=== PATIENT | male | born 1945 | race Caucasian/White ===

== ENCOUNTER 2017-04-08 14:00 | Observation (INO) | payer MEDICARE, SELFPAY ==
[2017-04-08] VITALS (7 sets, daily range): BP systolic 109–166; BP diastolic 50–82; PULSE 59–73; RESP 13–18; TEMP 36.2–36.4; O2SAT 94–98; BMI 27.0; BMI 26.4
--- NOTE | 2017-04-08 14:16 | ED.RN ---
PT'S BLOOD SUGAR WAS 46 ON ED MONITOR, PT WAS SOMNOLENT GIVEN 1/2 AMP OF D50
[2017-04-08] MEDS: Dextrose 50%-Water 25 GM/50 ML DISP.SYRIN IV (14:20)
[2017-04-08 14:21] LABS: Bedside Glucose 46 mg/dL (70-110)
[2017-04-08 16:05] LABS: Bedside Glucose 73 mg/dL (70-110)
[2017-04-08 16:24] LABS: Anion Gap 8 (5-15); BUN 15 mg/dL (7-18); BUN/Creat Ratio 12.7 RATIO (10-20); Calcium,Total 8.6 mg/dL (8.5-10.1); Chloride 106 mmol/L (98-107); Creatinine, Serum 1.18 mg/dL (0.70-1.30); EST Glomerular Filtration Rate 65 mL/min (>60); Est Glom Filt Rate - Afr Amer 78 mL/min (>60); Estimated Creatinine Clearance 56.36 ml/min; Glucose 78 mg/dL (70-110); Potassium 3.4 mmol/L (3.5-5.1); Sodium Level 142 mmol/L (136-145)
[2017-04-08 17:07] LABS: Absolute Lymphocyte Count 1.51 X10^3/ul (0.83-4.51); Absolute Neutrophil Count 7.8 X10^3/uL (2.0-7.7); Basophil# 0.03 X10^3/uL; Basophil% 0.3 % (0-1); Eosinophil# 0.25 X10^3/uL; Eosinophils% 2.4 % (0-5); Hematocrit 34.5 % (40-54); Hemoglobin 11.5 g/dl (13.0-16.5); Lymphocyte # 1.51 X10^3/ul (4.0); Lymphocyte % 14.6 % (19-41); Mean Corp Hgb Conc 33.3 g/gl (32-36); Mean Corpuscular Hgb 31.4 pg (27.0-32.0); Mean Corpuscular Volume 94.3 fL (80-94); Mean Platelet Vol. 10.8 fl (6.2-12.0); Monocyte# 0.75 X10^3/uL; Monocyte% 7.2 % (0-10); Neutrophil % 75.4 % (47-70); Platelet Count 237 K/mm3 (150-450); RBC Distribution Width SD 40.1 fl (35.1-43.9); Red Blood Count 3.66 M/mm3 (4.6-6.2); White Blood Count 10.4 K/mm3 (4.4-11.0)
[2017-04-08 17:12] LABS: POSITIVE COUNT NO; POSITIVE DIFFERENTIAL NO; POSITIVE MORPHOLOGY NO
[2017-04-08 17:16] LABS: Bedside Glucose 74 mg/dL (70-110)
--- NOTE | 2017-04-08 17:28 | ED.VISSUMM ---
- ER Visit Summary Date of Service: 04/08/17 Chief Complaint: [Hypoglycemia] History of Present Illness: The patient is a 71 M [presents to the emergency department with an episode of hypoglycemia today. Patient was with his when he began acting strangely per . Patient started nodding off and not responding appropriately. The checked his blood sugar and noticed that it was 36. The called EMS and gave the patient some orange juice to drink. On EMS arrival patient was hypoglycemic and was given half an amp of D50. On arrival to the emergency department patient continues to be hypoglycemic and received another amp of D50 and was given a meal tray. Patient normally takes 30 units of NovoLog in the morning as well as 30 units after dinner. Patient also takes 50 units of Lantus at night. The states that his blood sugars had been running high so about a week ago he was started back on his metformin. Normally his blood sugars are in the 200s and they had been running as high as the 4 and 500s prior to starting the metformin again. Patient is never had episode of hypoglycemia like this. Patient also currently being treated for urinary tract infection and had an indwelling Kaplan catheter removed yesterday. Patient has been able to urinate without difficulty on his own since having the catheter removed.] Physical Examination: [HEENT-PERRLA, EOMI. Cranial nerves II through XII grossly intact. TMs clear. Mucous membranes moist. No adenopathy. Cardiovascular-regular rate and rhythm without murmur or ectopy Lungs-clear to auscultation, chest wall stable without crepitus or subcu emphysema Abdomen-normoactive bowel sounds, soft, nontender, no rebound or rigidity, no peritoneal signs. Extremities-intact ?4, normal range of motion, normal pulses, atraumatic] Test Results: [CBC with differential for white blood cell count of 10.4, hemoglobin 11.5, hematocrit 34.5, platelets 337. Chemistries unremarkable. Glucose was 78, BUN 15, creatinine 1.18. Urinalysis ordered and pending] Emergency Department Course and Treatment: Patient received a liter of normal saline. Patient was given 40 mEq potassium chloride p.o. After 3 hours in the emergency department patient relatively hypoglycemic for him with blood glucose levels in the low 70s. At this point will recommend admission for observation to stabilize his blood sugars. [] Treatment Plan: [Admit] Disposition: [Admit] Impression: [Persistent hypoglycemia] This note was generated with [employer] dictation software. It may contain incorrect words, spelling, and punctuation that were not noted in review of the chart prior to signing ED Disposition - Plan for ED Patient: Chief Complaint: Hypoglycemia Referrals: Priyank Ferreira DO [Primary Care Provider] -
--- NOTE | 2017-04-08 17:34 | ED.RN ---
PER DR STODDARD REQUEST PT GIVEN ANOTHER SANDWICH TO EAT.
--- NOTE | 2017-04-08 19:21 | HP.PCM_ITS ---
Problem List (1) Acute hypoglycemia Status: Acute (2) Benign hypertension Status: Chronic (3) Benign prostate hyperplasia Status: Chronic (4) Hypothyroidism Status: Chronic (5) Type 2 diabetes mellitus Status: Chronic (6) CAD (coronary artery disease) Status: Chronic (7) Hypertension Status: Chronic (8) GERD (gastroesophageal reflux disease) Status: Chronic (9) Urinary retention Status: Chronic (10) Acute kidney injury Status: Acute (11) Constipation Status: Chronic (12) Diabetes mellitus Status: Chronic (13) Hemorrhagic stroke Status: Chronic Comment: Hemorrhagic stroke in February 2016. (14) Carotid stenosis status post right CEA Status: Chronic (15) Acute metabolic encephalopathy due to hypoglycemia Status: Acute History of Present Illness Date of Admission: 04/08/17 Chief Complaint: Low blood sugar The patient is a 71 year old M with multiple comorbidities as listed above with recent history of hemorrhagic stroke in February 2016 for which he was transferred to [facility] from our ER, right CEA in 2014 came to ER with low blood sugar. Patient took 30 units NovoLog insulin and thought it did not go inside so he took on the 20 units. Prior to that patient was more confused and acting strange and was not responding appropriately. Patient checked blood sugar and was 36 mg percent. Later on EMS brought him here. He was given half amp of D50 in the ambulance and patient was still hypoglycemic in 40s and so received another in ER and blood sugar was in 70s. His last 2 blood sugars are 73 and 74. Currently on D5 half NS at 100 mL per/hr. the patient's symptoms of confusion and encephalopathy resolved [] Past Medical History Past Medical History (Chronic Problems): Chronic Problems Benign hypertension (Chronic) Benign prostate hyperplasia (Chronic) Hypothyroidism (Chronic) Type 2 diabetes mellitus (Chronic) CAD (coronary artery disease) (Chronic) Hypertension (Chronic) GERD (gastroesophageal reflux disease) (Chronic) Urinary retention (Chronic) Constipation (Chronic) Diabetes mellitus (Chronic) Hemorrhagic stroke (Chronic) Hemorrhagic stroke in February 2016. Carotid stenosis status post right CEA (Chronic) Allergies No Known Allergies Allergy (Verified 04/08/17 14:01) NKA Home Medications: Ambulatory Orders Medication Instructions Recorded Acetaminophen [Tylenol Extra 1,000 mg PO Q8H PRN PRN MDD 3000 03/24/17 Strength] MG IN 24 HOURS Carvedilol [Coreg] 12.5 mg PO BIDCM 03/24/17 Doxazosin Mesylate [Cardura] 2 mg PO DAILY 03/24/17 Levetiracetam Solution [Keppra 500 mg PO BID 03/24/17 Solution] Levothyroxine [Synthroid] 137 mcg PO DAILY 03/24/17 Mirtazapine [Remeron] 30 mg PO QHS 03/24/17 Paroxetine HCl [Paxil] 20 mg PO QHS 03/24/17 DiphenhydrAMINE [Benadryl] 25 mg PO QHS 04/08/17 Hydrochlorothiazide 12.5 mg PO DAILY 04/08/17 Insulin Aspart [Novolog Flexpen 30 units SC BIDCM 04/08/17 ([facility])] Insulin Glargine,Hum.rec.anlog 50 unit SQ QHS 04/08/17 [Lantus] Metformin HCl [Glucophage] 500 mg PO BIDCM 04/08/17 Polyethylene Glycol 3350 [Miralax] 17 gm PO DAILY 04/08/17 Surgical History: angioplasty, coronary bypass surgery - x 2., - - Bilateral carpal tunnel surgery, right and left rotator cuff repair, Right carotid endarterectomy. Psychiatric History: No pertinent psych hx Smoking Status: Former smoker - *Family History Maternal History Items: No pertinent history Paternal History Items: No pertinent history Review of Systems Constitutional: Denies: Chills, Fever, Weight Change HEENT: Denies: Head Aches, Sinus Congestion, Sinus Drainage Cardiovascular: Denies: Chest Pain, Palpitations Respiratory: Denies: Cough, Shortness of breath at rest, Sputum production Gastrointestinal: Denies: Abdominal Pain, Nausea, Vomiting Genitourinary: Denies: Dysuria Musculoskeletal: Denies: Joint Pain, Joint Tenderness Skin: Denies: Rash, Wounds Neurological: Reports: Confusion, Focal weakness - Left upper extremity weakness from recent stroke. Denies: Numbness, Tingling Psychiatric: Denies: Anxiety, Depression, Homicidal Ideations, Suicidal Ideations Hematologic/ Lymphatic: Denies: Easy Bruising, Easy Bleeding VTE Information - Inpt Only VTE Present on Admission: No VTE Mechan Device Prophylaxis: SCD's VTE Pharm Prophylaxis ordered?: Yes Patient Problems: Active and Suspected Problems Acute hypoglycemia (Acute) Acute metabolic encephalopathy due to hypoglycemia (Acute) - Physical Exam General: Alert, Oriented x3, Cooperative HEENT: Atraumatic, PERRLA, EOMI, Normocephalic Oral: Dry Mucosa Neck: Supple, No JVD, Negative Carotid Bruits, - - Right CEA in 2016 Lungs: No rhonchi, No wheeze, No rales, Diminished - Diminished in bilateral lung bases, posteriorly Cardiovascular: Regular rate, No murmurs, - - CABG scar in 1998 Abdomen: Bowel Sounds Present, Soft, Non Tender, Non-Distended Extremities: Capillary Refill Less than 3 Seconds, Edema Skin: No rashes, No breakdown Musculoskeletal: No Tenderness to Palpation of Joints or Extremities, Arthritic Changes Neurological: Cranial nerves II-XII grossly intact, Neuro grossly intact, - - Mild weakness 4/5 on the left hand and upper extremity Psych/Mental Status: Normal Affect, Appropriate Vital Signs Temp Pulse Resp BP Pulse Ox 97.4 F L 73 16 133/61 H 94 04/08/17 14:02 04/08/17 18:28 04/08/17 18:28 04/08/17 18:28 04/08/17 18:28 Assessment/Plan Active and Suspected Problems Acute hypoglycemia (Acute) Acute metabolic encephalopathy due to hypoglycemia (Acute) The patient is a 71 year old M with multiple comorbidities as listed above with recent history of hemorrhagic stroke in February 2016 for which he was transferred to [facility] from our ER, right CEA in 2014 came to ER with low blood sugar. Patient took 30 units NovoLog insulin and thought it did not go inside so he took on the 20 units. Prior to that patient was more confused and acting strange and was not responding appropriately. Patient checked blood sugar and was 36 mg percent. Later on EMS brought him here. He was given half amp of D50 in the ambulance and patient was still hypoglycemic in 40s and so received another in ER and blood sugar was in 70s. His last 2 blood sugars are 73 and 74. Currently on D5 half NS at 100 mL per/hr. the patient's symptoms of confusion and encephalopathy resolved. 1. Acute metabolic encephalopathy due to hypoglycemia: Patient is admitted on the regular MedSurg floor. Currently encephalopathy is resolved and patient is alert awake oriented ?3 on his baseline. 2 acute hypoglycemia secondary to overdose of insulin: Check blood sugar every 2 hours until blood sugar is more than 1 30 mg/dL for 3 consecutive times and then every 4 hours. No sliding insulin coverage. A1c tomorrow morning. 3. Diabetes mellitus type 2: Hold the home dose of insulin forming. He is on NovoLog insulin 30 units subcu twice daily, Lantus 15 units subcu at bedtime daily and on metformin. 4. Recent UTI on Macrobid: Patient started on Wednesday he had urine retention and was Kaplan catheterized. Kaplan catheter was removed yesterday and he had a spontaneous urination. UA and urine culture ordered. Currently no features of sepsis. Treat with antibiotic as per the UA. Patient further said he never had urine retention due to BPH although I see he is on Cardura at home. 5. Coronary artery disease status post CABG in 1998: Stable. Continue home medication 6. Recent hemorrhagic stroke in 02/2016 status post right CEA in 2016: Patient was admitted and [facility] for 1 week and then transferred to rehab. He was recently discharged from TCU after about 1 month. Other multiple comorbidities include hypertension, dyslipidemia, hypothyroidism , GERD, urinary retention, carotid stenosis post right CEA: Multiple comorbidities complicates the present care. Home medication reconciliation done. Laboratory Results 04/08/17 14:12: POC Glucose 46 L 04/08/17 15:51: WBC Cancelled, Corrected WBC Cancelled, RBC Cancelled, Hgb Cancelled, Hct Cancelled, MCV Cancelled, MCH Cancelled, MCHC Cancelled, RDW Cancelled, RDW Differential Cancelled, Plt Count Cancelled, MPV Cancelled, Immature Gran % (Auto) Cancelled, Neut % (Auto) Cancelled, Lymph % (Auto) Cancelled, Whitman % (Auto) Cancelled, Eos % (Auto) Cancelled, Baso % (Auto) Cancelled, Immature Gran # (Auto) Cancelled, Absolute Neuts (auto) Cancelled, Absolute Lymphs (auto) Cancelled, Absolute Monos (auto) Cancelled, Total Counted Cancelled, Neutrophils % (Manual) Cancelled, Band Neutrophils % Cancelled, Lymphocytes % (Manual) Cancelled, Monocytes % (Manual) Cancelled, Eosinophils % (Manual) Cancelled, Basophils % (Manual) Cancelled, Metamyelocytes % Cancelled, Myelocytes % Cancelled, Promyelocytes % Cancelled, Blast Cells % Cancelled, Plasma Cell % (Manual) Cancelled, Other Cells % Cancelled, Lymphocytes # Cancelled, Nucleated RBCs/100 WBC Cancelled, Differential Comment Cancelled, Diff Path Review Cancelled, Hypersegmented Neuts Cancelled, Atypical Lymphocytes Cancelled, Reactive Lymphocytes Cancelled , Smudge Cells Cancelled, Eosinophilia # Cancelled, Basophilia # Cancelled, Toxic Granulation Cancelled, Dohle Bodies Cancelled, Nicho Rods Cancelled, Platelet Estimate Cancelled, Plt Morphology Comment Cancelled, RBC Morphology Cancelled, Polychromasia Cancelled, Hypochromasia Cancelled, Poikilocytosis Cancelled, Basophilic Stippling Cancelled, Anisocytosis Cancelled, Microcytosis Cancelled, Macrocytosis Cancelled, Spherocytes Cancelled, Sickle Cells Cancelled , Target Cells Cancelled, Tear Drop Cells Cancelled, Ovalocytes Cancelled, Stomatocytes Cancelled, Enrique-Helvetia Bodies Cancelled, [place] Cells Cancelled, Bite Cells Cancelled, Acanthocytes (Spur) Cancelled, Rouleaux Cancelled, Schistocytes Cancelled 04/08/17 15:51: Sodium 142, Potassium 3.4 L, Chloride 106, Carbon Dioxide 28.0, Anion Gap 8, BUN 15, Creatinine 1.18, Estim Creat Clear Calc 56.36, Est GFR ( MDRD) Af Amer 78, Est GFR (MDRD) Non-Af 65, BUN/Creatinine Ratio 12.7, Glucose 78, Calcium 8.6 04/08/17 15:54: POC Glucose 73 04/08/17 16:30: WBC 10.4, RBC 3.66 L, Hgb 11.5 L, Hct 34.5 L, MCV 94.3 H, MCH 31.4, MCHC 33.3, RDW 12.0, RDW Differential 40.1, Plt Count 237, MPV 10.8, Immature Gran % (Auto) 0.100, Neut % (Auto) 75.4 H, Lymph % (Auto) 14.6 L, Whitman % (Auto) 7.2, Eos % (Auto) 2.4, Baso % (Auto) 0.3, Absolute Neuts (auto) 7.8 H, Absolute Lymphs (auto) 1.51, Total Counted Not Reportable 04/08/17 17:08: POC Glucose 74 Code Visit OBSV E&M: 62250 Observation care discharge
[2017-04-08] MEDS: Acetaminophen 500 MG Tablet 1000 MG PO (20:12)
[2017-04-08 20:20] LABS: Bedside Glucose 171 mg/dL (70-110)
[2017-04-08 20:37] LABS: Bacteria 0 SEEN /hpf (None Seen); Mucous, Urine 0 SEEN /hpf (<or=2+); Red Blood Cells-Urine 0 SEEN /hpf (0-5)
[2017-04-08 20:39] LABS: Color, Urine Straw (Yellow); Glucose, Dipstick 100 mg/dl (Normal); Ketone-Dipstick Negative (Negative); Leukocyte Esterase-Dipstick 100 /ul (Negative); Nitrite-Dipstick Negative (Negative); Occult Blood-Urine Negative /ul (Negative); Protein-Dipstick Negative (Negative); Urine Bilirubin Dipstick Negative (Negative); Urine Clarity Clear (Clear); Urine Urobilinogen Normal (Normal)
[2017-04-08 20:47] LABS: Squamous Epithelial Cells - UA 0-5 SEEN /hpf (0-5); White Blood Cells 0-5 SEEN /hpf (0-5)
[2017-04-08] MEDS: DiphenhydrAMINE 12.5 MG/5 ML UDC PO (22:12)
[2017-04-08] MEDS: Mirtazapine 30 MG Tablet PO (22:13)
[2017-04-08 22:21] LABS: Bedside Glucose 255 mg/dL (70-110)
[2017-04-09] MEDS: 0.9% NaCl Peripheral Flush Adult/Peds IV (00:29)
[2017-04-09 00:35] VITALS: PULSE 62
[2017-04-09 00:42] LABS: Bedside Glucose 243 mg/dL (70-110)
[2017-04-09 02:00] VITALS: BP 133/67; PULSE 62; RESP 16; TEMP 36.5; O2SAT 96
[2017-04-09 04:02] VITALS: PULSE 62
[2017-04-09 04:36] LABS: Bedside Glucose 189 mg/dL (70-110)
[2017-04-09] MEDS: Levothyroxine 137 MCG Tablet PO (06:19)
[2017-04-09] MEDS: Polyethylene Glycol 3350 17 GM PACKET PO (06:19)
[2017-04-09 06:53] LABS: Anion Gap 8 (5-15); BUN 15 mg/dL (7-18); BUN/Creat Ratio 12.9 RATIO (10-20); Calcium,Total 8.6 mg/dL (8.5-10.1); Chloride 110 mmol/L (98-107); Creatinine, Serum 1.16 mg/dL (0.70-1.30); EST Glomerular Filtration Rate 66 mL/min (>60); Est Glom Filt Rate - Afr Amer 80 mL/min (>60); Estimated Creatinine Clearance 57.33 ml/min; Glucose 188 mg/dL (70-110); Potassium 4.7 mmol/L (3.5-5.1); Sodium Level 144 mmol/L (136-145)
[2017-04-09 07:13] LABS: Hemoglobin A1c 8.8 % (4.2-6.3)
[2017-04-09 07:59] VITALS: PULSE 66
[2017-04-09 08:00] VITALS: BP 153/70; PULSE 69; RESP 18; TEMP 37.1; O2SAT 97
[2017-04-09] MEDS: Carvedilol 12.5 MG Tablet PO (08:07)
[2017-04-09] MEDS: Doxazosin 1 MG Tablet 2 MG PO (08:08)
[2017-04-09] MEDS: HYDROCHLOROTHIAZIDE 12.5 MG CAPSULE PO (08:08)
[2017-04-09] MEDS: Enoxaparin 40 MG/0.4 ML Syringe SC (08:09)
[2017-04-09 08:21] LABS: Bedside Glucose 238 mg/dL (70-110)
--- NOTE | 2017-04-09 11:02 | PCM.DC ---
- Discharge Diagnoses Current Active Problems: Current Active and Chronic Problems Acute hypoglycemia (Acute) Hemorrhagic stroke (Chronic) Hemorrhagic stroke in February 2016. Carotid stenosis status post right CEA (Chronic) Acute metabolic encephalopathy due to hypoglycemia (Acute) You will use the following diet at home:: Calorie/Carbohydrate Controlled (specify 1200, 1400, etc) - 1800 ADA Your food should be the consistency of: Regular Your liquids should be the consistency of: Regular/Thin Discharge Activity: Return to Normal Activity Weight Bearing Status: Full weight bearing Allergies/Adverse Reactions: Allergies No Known Allergies Allergy (Verified 04/08/17 14:01) NKA Medications to take at Discharge Acetaminophen [Tylenol] 1,000 mg PO Q8H PRN PRN MDD 3000 MG IN 24 HOURS 03/24/17 Carvedilol [Coreg] 12.5 mg PO BIDCM 03/24/17 Doxazosin Mesylate [Cardura] 2 mg PO DAILY 03/24/17 Levetiracetam Solution [Keppra Solution] 500 mg PO BID 03/24/17 Levothyroxine [Synthroid] 137 mcg PO DAILY 03/24/17 Mirtazapine [Remeron] 30 mg PO QHS 03/24/17 Paroxetine HCl [Paxil] 20 mg PO QHS 03/24/17 DiphenhydrAMINE [Benadryl] 25 mg PO QHS 04/08/17 Hydrochlorothiazide 12.5 mg PO DAILY 04/08/17 Insulin Aspart [Novolog Flexpen] 30 units SC BIDCM 04/08/17 Insulin Glargine,Hum.rec.anlog [Lantus] 50 unit SQ QHS 04/08/17 Metformin HCl [Glucophage] 500 mg PO BIDCM 04/08/17 Polyethylene Glycol 3350 [Miralax] 17 gm PO DAILY 04/08/17 Primary Care Physician: Priyank Ferreira DO [Primary Care Provider] - Please follow up with your Primary Care Physician in: at next appointment time
--- NOTE | 2017-04-11 08:27 | PCM.DC.SUM ---
Discharge Date and Diagnosis Date of Admission: 04/08/17 Date of Discharge: 04/09/17 - Primary Discharge Diagnosis #1 hypoglycemia secondary to insulin #2 type 2 diabetes #3 hypokalemia - Secondary Discharge Diagnosis Chronic Problems Benign hypertension (Chronic) Benign prostate hyperplasia (Chronic) Hypothyroidism (Chronic) Type 2 diabetes mellitus (Chronic) CAD (coronary artery disease) (Chronic) Hypertension (Chronic) GERD (gastroesophageal reflux disease) (Chronic) Urinary retention (Chronic) Constipation (Chronic) Diabetes mellitus (Chronic) Hemorrhagic stroke (Chronic) Hemorrhagic stroke in February 2016. Carotid stenosis status post right CEA (Chronic) Hospital Course and Treatment Operations: None Procedures: None Summary of Care Provided: The patient is a 71 year old M seen in the emergency room at [facility] after being brought in by his due to low blood sugar. Patient was given a half an amp of D50 on EMS arrival at his house. Patient was given a meal tray in the emergency room and another amp of D50 but remained hypoglycemic. Patient was placed in observation status on MedSurg 2, blood sugars were monitored and improved. On 04/09/17, patient was seen and examined and felt to be in stable condition for discharge home Discharge Activity: Return to Normal Activity Weight Bearing Status: Full weight bearing Home Medications: Medications to take at Discharge Acetaminophen [Tylenol] 1,000 mg PO Q8H PRN PRN MDD 3000 MG IN 24 HOURS 03/24/17 Carvedilol [Coreg] 12.5 mg PO BIDCM 03/24/17 Doxazosin Mesylate [Cardura] 2 mg PO DAILY 03/24/17 Levetiracetam Solution [Keppra Solution] 500 mg PO BID 03/24/17 Levothyroxine [Synthroid] 137 mcg PO DAILY 03/24/17 Mirtazapine [Remeron] 30 mg PO QHS 03/24/17 Paroxetine HCl [Paxil] 20 mg PO QHS 03/24/17 DiphenhydrAMINE [Benadryl] 25 mg PO QHS 04/08/17 Hydrochlorothiazide 12.5 mg PO DAILY 04/08/17 Insulin Aspart [Novolog Flexpen] 30 units SC BIDCM 04/08/17 Insulin Glargine,Hum.rec.anlog [Lantus] 50 unit SQ QHS 04/08/17 Metformin HCl [Glucophage] 500 mg PO BIDCM 04/08/17 Polyethylene Glycol 3350 [Miralax] 17 gm PO DAILY 04/08/17 Primary Care Physician: Priyank Ferreira DO [Primary Care Provider] - Please follow up with your Primary Care Physician in: at next appointment time Disposition: Home Minutes spent on discharge:: 27 Patient Condition:: Stable Meaningful Use Info Meaningful Use Diagnoses (Choose all that apply): None applicable Code Visit OBSV E&M: 70858 Observation care discharge
== END 2017-04-09 12:45 | disposition home or self-care (01) ==
LOC: ED 17:41 → MS2 18:06
PROVIDERS: Admitting Provider Internal Medicine; Emergency Provider Emergency Medicine; Family Provider Preventive Medicine Occupational Medicine; PCP Preventive Medicine Occupational Medicine; Visit Provider Internal Medicine
DX: E11.649 Type 2 diabetes mellitus with hypoglycemia without coma (principal); T38.3X5A Adverse effect of insulin and oral hypoglycemic [antidiabetic] drugs, initial encounter; N39.0 Urinary tract infection, site not specified; I10 Essential (primary) hypertension; E03.9 Hypothyroidism, unspecified; I25.10 Atherosclerotic heart disease of native coronary artery without angina pectoris; K21.9 Gastro-esophageal reflux disease without esophagitis; N40.1 Benign prostatic hyperplasia with lower urinary tract symptoms; R33.8 Other retention of urine; G93.41 Metabolic encephalopathy; Z86.73 Personal history of transient ischemic attack (TIA), and cerebral infarction without residual deficits; Z79.4 Long term (current) use of insulin; Z79.899 Other long term (current) drug therapy; Z87.891 Personal history of nicotine dependence; Z95.1 Presence of aortocoronary bypass graft; E87.6 Hypokalemia; K59.00 Constipation, unspecified
CPT/HCPCS: 36415; 80048; 81001; 82274; 82962; 83036; 85025; 87086; 87088; 96361; 96372; 96374; 97802; 99218; 99285; J7030; A4216; G0378

== ENCOUNTER 2017-04-20 13:00 | Outpatient (RCR) | payer MEDICARE, SELFPAY ==
--- NOTE | 2017-04-15 12:43 | HP.PTEVAL_ITS ---
Patient's Visit Information SUSAN FALL is a 71 year old M referred to Physical Therapy by Diego PAUL with a diagnosis of Intracranial bleeding.. Date of Evaluation: 04/15/17 Physical Therapist: KATLYN WolffT, OC - Visit Plan Frequency: No skilled PT desired. Plan: No skilled PT required, pt will have OT eval for hand complaints. I educated him on L SLS ex at counter for balacne today and safety level with balance not requiring a cane but welcome to use it. Also recommended driving assessment at place in [place] if Hand eval goes well when appropriate for driving. Pt did not desire skilled PT nor did I recommend it. - Subjective Subjective: Stroke ion February 15. Was in hospital for 35 days, Out two weeks ago. Currently L hand coil placer is not good. Shakes upon picking things up. Says arm woudl not do anything but now it is good.. Doesn't feel like legs are a problem, a little weak on L side. Uses LBQC in R UE since stroke for stability. Has steps at home which are not a problem, has rail. is there in case. Dresses self and ties shoes I, bathroom and shower without assist. 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 Enjoys fishing but has not been lately. Does house work helping [place] that feels normal. Has not tried shovelling driveway. Watches sports in winter and that is not a problem. Thinks he can zipper and button, L hand feels weak is the main problem. - Objective Walks into PT with R LBQC mod I, walks without AD I. Trasnfers to and fro sit adn supine I. HS min tight B. LE strength and ROM WFL at 4/5, UE AROM WFL at 4 /5 adn no obvious L to R asymmetries with strength. reflexes 2/3 patella adn achilles. Sensation WNL to gross light touch In LE. Coordination to reciprocal toe and heel tap is symmetrical. SLS R 12 sec and L 4-6 sec. Steps are reciprocal without rail today. - Balance Scores Functional Gait Assessment Score: 28 % Disability: 6.6700 CATSIB Score (Max score 120 seconds): 100 - Rehabilitation Potential Physical Therapy Diagnosis: Intracranial bleeding. Rehabilitation Potential: Fair - Anticipated Interventions Thank you for the opportunity to evaluate your patient. For Medicare and Medicare HMO plans, please review the plan of care and approve it. It will need to be FAXED BACK to us at [phone] for Medicare purposes. Please let me know if there are questions or concerns regarding this plan of care. Physician Signature: Date:
--- NOTE | 2017-04-20 14:48 | HP.OTEVAL_ITS ---
Patient's Visit Information SUSAN FALL is a 71 year old M, referred to Occupational Therapy by DR.[email or web address] Mackay Chi, with a diagnosis of Intracranial bleeding, decreased functional activity. Date of Evaluation: 04/20/17 Occupational Therapist: Jessie Jolly - Subjective Subjective: Pt seen for initial occupational therapy evaluation for intracranial bleed 02/15/2017. Pt stated he was in hospital for 15 days then transferred to TCU for about 2 wks of skilled therapy services. Pt states he is back to normal with BADL's/IADL's around the house and going out shopping in the community. He likes to do a lot of fishing. Retired. Still drives and assist w/ IADL's around the house. Pt states his L hand is weaker than it use to be. - Objective Objective/Observation: Pt tommy decreased performance engineer strength L hand. - ROM Shoulder: R WFL, L WFL Elbow: R WFL, L WFL Wrist: R WFL, L WFL ROM Comments: R hand dominant. - Strength Shoulder: R 4/5, L 4/5 Elbow: R 4/5, L 4/5 Forearm: R 4/5, L 4/5 Custodian Manager: R 35#, L 20# Tripod Pinch: R 8#, L 4# Strength Comments: Pt states L performance engineer strength feels weaker than it use to. Pt demo decreased performance engineer strength L hand. - Edema Other: No edema noted - Sensation Sensation Comments: No numbness or tingling noted - Visual/Perceptual Skills Comments: Pt states no visual deficits - Nine Hole Peg Right: 28.3 seconds Left: 35.3 seconds - DASH-Disabilities of Arm, Shoulder& Hand DASH Sum: 43 - Rehabilitation General Assessment: Pt tommy decreased L hand/performance engineer strength and would benefit from occupational therapy services to increase his L hand/performance engineer strength to assist w/ BADL's/IADL's. Rehabilitation Potential: Excellent - Anticipated Interventions Anticipated Interventions: Strengthening, Fine Motor Coord/[place], ADL Training , Caregiver Training, Home Program - Visit Plan General Plan: Increase L hand/performance engineer strength to assist w/ BADLs/IADLs, hobbies and return back to PLOF with L hand performance engineer strength. Pt would benefit from occupational therapy services to increase his independence and strength of L hand for BADLs/IADLs and hobbies 1x/wk for 4wks however pt declines to participate with outpatient OT services secondary to high co-pay. Pt wanted exercises to complete at home for L hand. Educated pt on use of thera-putty, thera-putty exercises (handout for exercises) use of dumbells for UE strength, stress ball and hand exercises to complete at home. Pt demo good understanding of techniques and exercises to complete at home. Eval only secondary to pt request. TEXT: Thank you for the opportunity to evaluate your patient. For Medicare and Medicare HMO plans, please review the plan of care and approve it. It will need to be FAXED BACK to us at [phone] for Medicare purposes. Please let me know if there are questions or concerns regarding this plan of care. Physician Signature: Date:
== END 2017-04-20 19:00 | disposition home or self-care (01) ==
LOC: OT 13:00
PROVIDERS: Family Provider Preventive Medicine Occupational Medicine; PCP Preventive Medicine Occupational Medicine; Visit Provider Family Medicine Geriatric Medicine
DX: I62.9 Nontraumatic intracranial hemorrhage, unspecified (principal); R68.89 Other general symptoms and signs; R41.841 Cognitive communication deficit
CPT/HCPCS: 97162; 97165; G8987; G8988; G8989

== ENCOUNTER → 2019-09-25 13:56 | Outpatient (CLI) | payer OTHER, MEDICARE, SELFPAY ==
--- NOTE | 2019-09-25 14:04 | CT_ITS ---
STUDY: CT CHEST WITHOUT CONTRAST REASON FOR EXAM: Male, 73 years old. Shortness of breath, history of previous CABG, and retention RADIATION DOSAGE (If Supplied By Facility): CTDIvol = ( 12.44 ) mGy, DLP = ( 445.64 ) mGycm TECHNIQUE: Transaxial imaging was performed without the administration of intravenous contrast material. Multiplanar coronal and sagittal images were reformatted. Individualized dose optimization techniques were used for this CT. COMPARISON: 05/30/2012 FINDINGS: Lung windows show the lungs to be mildly hyperexpanded, with subtle interstitial changes in both lung soto. There is no organized infiltrate, groundglass opacifications, or pleural or pericardial effusions. The soft tissue windows show normal-appearing thyroid gland. There are scattered subcentimeter axillary and mediastinal lymph nodes. Evidence of previous CABG. Calcified subcarinal lymph nodes noted. No pleural or pericardial effusions. Normal hilar regions. Normal unenhanced pulmonary arteries. Normal aorta arch and descending thoracic aorta. There are multi-level degenerative changes of the thoracic spine. There is no demonstrated abnormality of the visualized upper abdomen. CT/Chest without Contrast IMPRESSION: Chronic interstitial changes in both lung soto without a superimposed infiltrate, effusion, or suspicious noncalcified mass or nodule Remote CABG Degenerative bony changes Electronically Signed: Shabbir Carrasquillo MD at 16:49 EDT , Service support ,
== END ==
PROVIDERS: PCP Preventive Medicine Occupational Medicine
DX: R06.09 Other forms of dyspnea (principal)
CPT/HCPCS: 71250

== ENCOUNTER 2021-05-14 17:32 | Inpatient (IN) | payer OTHER, SELFPAY ==
[2021-05-14] VITALS (10 sets, daily range): BP systolic 117–165; BP diastolic 62–113; PULSE 61–83; RESP 15–22; TEMP 36.8; O2SAT 95–97; BMI 25.1; BMI 24.2
--- NOTE | 2021-05-14 18:07 | EKG12_ITS ---
Test Reason : CP Blood Pressure : / mmHG Vent. Rate : 083 BPM Atrial Rate : 083 BPM P-R Int : 168 ms QRS Dur : 086 ms QT Int : 390 ms P-R-T Axes : 020 022 086 degrees QTc Int : 458 ms Sinus rhythm with Premature atrial complexes Inferior infarct , age undetermined Abnormal ECG Confirmed by RACHELE STORM, EDNA ([id number]), news videotape editor GAYATHRI CISSE ([id number]) on 05/15/2021 2:04:42 PM Referred By: Confirmed By:DIANA JEFFREY MD
--- NOTE | 2021-05-14 18:09 | EDS_ITS ---
HPI History of Present Illness Chief Complaint: Chest Pain Informant: patient and spouse/S.O. Narrative Narrative: Patient is a 75-year-old male with history of coronary artery disease status post CABG x2 in 2018, stroke in 2017 and subsequent right carotid endarte rectomy presenting with chest pain. Patient states it started 2 to 3 days ago and sudden onset. Today its been a pressure that is been current all day today. Denies any radiation. Notes that it is localized to left lower sternum/anterior chest. Has had some associated shortness of breath. Has had a little bit of pain between his shoulder blades in his back but does not feel that that correlates with his chest pain. Denies any leg swelling or history of DVT/PE. Notes has been feeling off balance for the past few weeks and the notes he has had a tremor that is worse in the mornings for the past month or so. This is never been evaluated. No other complaints at this time. [facility] Medical History Coronary artery disease Diabetes Hypertension Hypothyroidism Stroke/cerebrovascular accident Home Medications carvedilol [Coreg] 12.5 mg PO BIDCM 03/24/17 [History Last Taken 05/14/21] doxazosin 2 mg PO DAILY 03/24/17 [History Last Taken 05/14/21] levothyroxine 137 mcg PO DAILY 03/24/17 [History Last Taken 05/14/21] mirtazapine 30 mg PO QHS 03/24/17 [History Last Taken 05/13/21] paroxetine HCl 20 mg PO QHS 03/24/17 [History Last Taken 05/13/21] Lantus U-100 Insulin 25 unit SQ QHS 04/08/17 [History Last Taken 05/13/21] diphenhydramine HCl [Banophen] 25 mg PO QHS 04/08/17 [History Last Taken 05/13/21] insulin aspart U-100 [Novolog Flexpen U-100 Insulin] 9 units SUBCUT TIDCM 04/08/17 [History Last Taken 05/14/21] metformin 500 mg PO BIDCM 04/08/17 [History Last Taken 05/14/21] amlodipine 10 mg PO DAILY 05/14/21 [History Last Taken 05/14/21] atorvastatin 80 mg PO QHS 05/14/21 [History Last Taken 05/13/21] levetiracetam 500 mg PO BID 05/14/21 [History Last Taken 05/14/21] semaglutide [Ozempic] 1 mg SUBCUT FR 05/14/21 [History Last Taken 05/09/21] Allergy/AdvReac Type Severity Reaction Status Date / Time No Known Allergies Allergy Verified 05/14/21 17:33 Family History (Updated 05/14/21 @ 20:[address] Jay Marti MD) Other Heart disease Surgical History Hx of CABG Social History Smoking Status: Former smoker ROS ROS ED Constitutional Constitutional ED: Denies chills or fever(s) Eyes Eyes: Denies blurry vision, change in vision or diplopia ENT ENT ED: Reports other Details: No hearing changes ; Denies ear pain, rhinorrhea or sore throat Cardiovascular Cardiovascular: Reports as per HPI and chest pain Respiratory/Chest Respiratory/Chest: Denies cough or dyspnea Gastrointestinal Gastrointestinal: Denies abdominal pain, nausea or vomiting Genitourinary Genitourinary ED: Denies dysuria Musculoskeletal Musculoskeletal: Reports back pain; Denies arthralgias or myalgias Integumentary Denies rash Neurologic Neurologic: Denies headache(s) or weakness Psychiatric Psychiatric: Denies depression EXAM Physical Exam Const Vital Signs: 05/14/21 17:38 05/14/21 17:51 05/14/21 18:25 Temperature 98.3 F Temperature Source Oral Pulse Rate 81 Respiratory Rate 22 H Respiratory Effort Normal Non-Labored Respiratory Pattern Normal Blood Pressure 165/69 H Blood Pressure Mean 101 Pulse Ox 96 97 97 Oxygen Delivery Method Room Air Room Air Room Air 05/14/21 19:04 05/14/21 19:11 05/14/21 19:17 Temperature Temperature Source Pulse Rate 65 69 77 Respiratory Rate Respiratory Effort Respiratory Pattern Blood Pressure 148/81 H 154/113 H 117/62 Blood Pressure Mean Pulse Ox Oxygen Delivery Method Positive well nourished and well developed General Appearance ED: well developed HEENT Reports moist mucous membranes normocephalic and atraumatic Eyes PERRL and EOMs intact bilaterally Eyes Narrative: No nystagmus on exam Neck no lymphadenopathy, supple and no JVD Chest Wall inspection of chest normal Resp normal respiratory effort and clear to auscultation bilaterally Effort and Inspection: respiratory distress Cardio regular rate Rhythm: abnormal rhythm ectopic beats GI normal to inspection, nondistended, normoactive bowel sounds Back/Spine no CVA tenderness Extremity normal to inspection General Extremety ED: Negative for edema or tenderness General Extremity: Negative for edema Neuro oriented x3 Neuro Narrative: Patient has a mild resting tremor almost no sounds left upper extremity. Sensorium / Orientation: awake and alert Skin no rashes or lesions noted and no wounds MDM MDM MDM Narrative Medical decision making narrative: Patient evaluated 2 to 3 days of chest pain. He continues to have pain. He is given nitro for his chest pain which does improve it. Patient does have a history of coronary artery disease and had cardiac bypass in 1998. He is not had any recent stress test. He is also been having tremors in addition to a cardiac work-up head CT is ordered. Head CT is negative. EKG does not show acute cardiac syndrome. Patient does have significantly elevated high-sensitivity troponin consistent with an NSTEMI. His creatinine is mildly elevated at 1.72 but I do not think this explains his elevated troponin. Case is discussed with Dr. Al, cardiology on-call, who is agreeable to starting the patient on heparin drip and states he will see him in the morning. Patient is admitted to the hospital service. Patient is given full dose aspirin in the emergency room. Patient agreeable this plan of care. [facility] but we did not hear response so he is admitted to our hospital. Lab Data Attestation: I reviewed the patient's lab results. Labs: Laboratory Results - last 24 hr 05/14/21 05/14/21 05/14/21 17:45 17:45 17:45 WBC 8.3 RBC 3.67 L Hgb 11.7 L Hct 35.1 L MCV 95.6 H MCH 31.9 MCHC 33.3 RDW Std Deviation 41.1 RDW Coeff of Cy 11.8 Plt Count 168 MPV 11.3 Immature Gran % (Auto) 0.100 Neut % (Auto) 72.8 H Lymph % (Auto) 14.9 L [place] % (Auto) 9.9 Eos % (Auto) 2.1 Baso % (Auto) 0.2 Absolute Neuts (auto) 6.0 Absolute Lymphs (auto) 1.23 Nucleated RBC % 0 PT 13.3 INR 1.1 APTT 33.2 Sodium 137 Potassium 4.8 Chloride 103 Carbon Dioxide 27.0 Anion Gap 7 BUN 28 H Creatinine 1.72 H Estim Creat Clear Calc 37.68 Est GFR (MDRD) Af Amer 50 L Est GFR (MDRD) Non-Af 42 L BUN/Creatinine Ratio 16.3 Glucose 421 H Calcium 9.1 Troponin I High Sens 77227 H* TSH 2.12 Radiography Chest X-Ray - ED: 1 View, Read by ED Physician, Read by Radiologist and No Acute Disease Diagnostic Testing: Clinical Impression(s) from Imaging Studies Brain CT 05/14/21 18:11 IMPRESSION: There are no acute intracranial findings. Electronically Signed: Arnel Le MD at 19:04 EST , Chest X-Ray 05/14/21 18:45 IMPRESSION: There are no acute findings. Electronically Signed: Arnel Le MD at 19:03 EST , Rhythm Strip Rhythm Strip: Sinus Rhythm Rate: 83 Ectopy: PAC(s) EKG Initial EKG: Attestation: I personally reviewed and interpreted this EKG as follows: Interpretation: Sinus Rhythm Comments: Sinus rhythm with PACs Normal axis Normal intervals Normal ST segments new Follow-up EKG: Attestation: I personally reviewed and interpreted this EKG as follows: Interpretation: Sinus Rhythm Comments: Sinus rhythm with marked sinus arrhythmia at a rate of [address] segments No dynamic changes compared to prior EKG Prior: Unchanged Critical Care Time Critical Care Time: Yes Critical care time (excluding procedures): 30-74 minutes (35), Discussing w/Patient &/or Family/[employer], Discussing w/Consultants and Arranging Admission or Transfer Discharge Plan Dx/Rx/DC Orders Clinical Impression: Non-STEMI (non-ST elevated myocardial infarction), Chest pain Disposition Disposition: Acute Care Hospital [facility] Discharge Date/Time: 05/14/21 20:17
--- NOTE | 2021-05-14 18:11 | CT_ITS ---
STUDY: CT BRAIN WITHOUT CONTRAST REASON FOR EXAM: Male, 75 years old. tremor, dizziness TECHNIQUE: Transaxial CT imaging of the brain was performed without administration of intravenous contrast material. Individualized dose optimization techniques were used for this CT. COMPARISON: 03/24/17 FINDINGS: Normal calvarium. Normal soft tissues. Old right frontal parietal lobe infarct. There is mild cerebral atrophy with widening of the extra-axial spaces and ventricular dilatation. There are areas of decreased attenuation within the white matter tracts of the supratentorial brain, consistent with microvascular disease changes. Normal basal ganglia and thalami. Normal brainstem. Normal cerebellum. There is no intracranial hemorrhage. There are no findings of an acute ischemic infarction. Normal visualized paranasal sinuses. ASPECTS 10 CT/Brain/Head without Contrast IMPRESSION: There are no acute intracranial findings. Electronically Signed: Arnel Le MD at 19:04 EST ,
[2021-05-14 18:19] LABS: Absolute Lymphocyte Count 1.23 X10^3/uL (0.83-4.51); Basophil# 0.02 X10^3/uL; Basophil% 0.2 % (0-1); Eosinophil# 0.17 X10^3/uL; Eosinophils% 2.1 % (0-5); Hematocrit 35.1 % (40-54); Hemoglobin 11.7 g/dL (13.0-16.5); Lymphocyte # 1.23 X10^3/ul (0.83-4.51); Lymphocyte % 14.9 % (19-41); Mean Corp Hgb Conc 33.3 g/dL (32-36); Mean Corpuscular Hgb 31.9 pg (27.0-32.0); Mean Corpuscular Volume 95.6 fL (80-94); Mean Platelet Vol. 11.3 fl (6.2-12.0); Monocyte# 0.82 X10^3/uL; Monocyte% 9.9 % (0-10); NRBC Flagged by Analyzer 0 % (0-5); Neutrophil # 6.03 X10^3/uL (2.7-7.7); Neutrophil % 72.8 % (47-70); Platelet Count 168 K/mm3 (150-450); RBC Distribution Width CV 11.8 % (11.6-14.6); RBC Distribution Width SD 41.1 fl (35.1-43.9); Red Blood Count 3.67 M/mm3 (4.6-6.2); White Blood Count 8.3 K/mm3 (4.4-11.0)
--- NOTE | 2021-05-14 18:45 | RAD_ITS ---
STUDY: XR Chest 1 View 05/14/2021 6:51 PM REASON FOR EXAM: Male, 75 years old. CHEST PAIN chest pain COMPARISON: None TECHNIQUE: XR Chest 1 View FINDINGS: There is no demonstrated pleural abnormality. Right humeral anchors. There are multiple median sternotomy wires. Normal heart size. Normal mediastinum. Normal jorge a. Prominent appearing increased interstitial lung markings. Normal visualized pulmonary arteries. There is atherosclerotic calcification of the aortic arch with tortuosity. There are diffuse degenerative changes of the visualized thoracic spine. There is degenerative osteoarthritis of the bilateral shoulders. There is no demonstrated abnormality of the visualized soft tissue structures of the upper abdomen. RAD/Chest 1 View (Portable) IMPRESSION: There are no acute findings. Electronically Signed: Arnel Le MD at 19:03 EST ,
[2021-05-14 18:55] LABS: Anion Gap 7 (5-15); BUN 28 mg/dL (7-18); BUN/Creat Ratio 16.3 RATIO (10-20); Calcium,Total 9.1 mg/dL (8.5-10.1); Chloride 103 mmol/L (98-107); Creatinine, Serum 1.72 mg/dL (0.70-1.30); EST Glomerular Filtration Rate 42 mL/min (>60); Est Glom Filt Rate - Afr Amer 50 mL/min (>60); Estimated Creatinine Clearance 37.68 ml/min; Glucose 421 mg/dL (74-106); Potassium 4.8 mmol/L (3.5-5.1); Sodium Level 137 mmol/L (136-145); Thyroid Stim Hormone (TSH) 2.12 uIU/mL (0.358-3.74); Troponin-I HS 10482 pg/mL (3.0-78.0)
[2021-05-14] MEDS: Aspirin 81 MG TAB.CHEW 324 MG PO (18:55)
[2021-05-14] MEDS: Nitroglycerin SL (ED/IMG/CATH) 0.4 MG TABLET SL ×3 (19:04→19:17)
--- NOTE | 2021-05-14 19:11 | ED.RN ---
TROPONIN 10,482. DR MITCHELL
[2021-05-14] MEDS: Heparin Injection (Vial) 5,000 UNIT/ML VIAL 5000 UNIT IV (19:25)
--- NOTE | 2021-05-14 19:31 | HP.PCM.HOS_ITS ---
HPI - General HPI Narrative SUSAN FALL, is a 75 M who presents to the hospital with 2 to 3 days of chest pain. He thought initially that this had to do with reflux as it was lower down his chest closer to his abdomen. And then he has been exercising every day and thought that maybe he had strained a muscle on his cable machine but he denies any chest pain with palpation. On arrival to the ER his troponin was 10,000 and then his second troponin was over 12,000 so he was started on a heparin drip and given Nitropaste which relieved his chest pain. The ED physician did discuss the case with cardiology. The EKG was nonischemic consistent with a non-STEMI. The history of a previous CABG in 1998. [facility] Medical History Coronary artery disease Diabetes Hypertension Hypothyroidism Stroke/cerebrovascular accident Home Medications carvedilol [Coreg] 12.5 mg PO BIDCM 03/24/17 [History Last Taken 04/08/17] doxazosin 2 mg PO DAILY 03/24/17 [History Last Taken 04/08/17] levothyroxine 137 mcg PO DAILY 03/24/17 [History Last Taken 04/08/17] mirtazapine 30 mg PO QHS 03/24/17 [History Last Taken 04/07/17] paroxetine HCl 20 mg PO QHS 03/24/17 [History Last Taken 04/07/17] Lantus U-100 Insulin 25 unit SQ QHS 04/08/17 [History Last Taken 04/07/17] diphenhydramine HCl [Banophen] 25 mg PO QHS 04/08/17 [History Last Taken 04/07/17] insulin aspart U-100 [Novolog Flexpen U-100 Insulin] 9 units SUBCUT TIDCM 04/08/17 [History Last Taken Unknown] metformin 500 mg PO BIDCM 04/08/17 [History Last Taken 04/08/17] amlodipine 10 mg PO DAILY 05/14/21 [History Last Taken Unknown] atorvastatin 80 mg PO QHS 05/14/21 [History Last Taken Unknown] levetiracetam 500 mg PO BID 05/14/21 [History Last Taken Unknown] semaglutide [Ozempic] 1 mg SUBCUT FR 05/14/21 [History Last Taken Unknown] Allergy/AdvReac Type Severity Reaction Status Date / Time No Known Allergies Allergy Verified 05/14/21 17:33 Family History (Updated 05/14/21 @ 20:[address] Jay Marti MD) Other Heart disease Surgical History Hx of CABG Social History Smoking Status: Former smoker ROS Constitutional Constitutional: Denies chills, fatigue, fever(s) or malaise Eyes Eyes: Denies blurry vision ENT HEENT: Denies headache(s) or nasal discharge Cardiovascular Cardiovascular: Reports chest pain; Denies dyspnea on exertion or syncope Respiratory/Chest Respiratory/Chest: Denies cough, shortness of breath at rest or shortness of breath with exertion Gastrointestinal Gastrointestinal: Denies constipation, diarrhea, nausea or vomiting Genitourinary Genitourinary: Denies dysuria Neurologic Neurologic: Denies focal weakness, numbness or tremor(s) Psychiatric Psychiatric: Denies anxiety or depression Vital Signs Vital Signs Vital Signs: 05/14/21 17:38 05/14/21 17:51 05/14/21 18:25 Temperature 98.3 F Temperature Source Oral Pulse Rate 81 Respiratory Rate 22 H Respiratory Effort Normal Non-Labored Respiratory Pattern Normal Blood Pressure 165/69 H Blood Pressure Mean 101 Pulse Ox 96 97 97 Oxygen Delivery Method Room Air Room Air Room Air 05/14/21 19:04 05/14/21 19:11 05/14/21 19:17 Temperature Temperature Source Pulse Rate 65 69 77 Respiratory Rate Respiratory Effort Respiratory Pattern Blood Pressure 148/81 H 154/113 H 117/62 Blood Pressure Mean Pulse Ox Oxygen Delivery Method Weight Weight: 170 lb Body Mass Index (BMI) 25.1 Physical Exam Const alert, oriented x3 and no apparent distress General Appearance: cooperative HEENT normocephalic and moist oral mucous membranes Eyes PERRL, EOMs intact bilaterally and conjunctivae normal Neck supple and no JVD Resp normal respiratory effort, no retractions, no use of accessory muscles and clear to auscultation bilaterally Auscultation: Negative for crackles, rales, rhonchi or wheezes Cardio regular rate, regular rhythm, S1 normal heart sound, S2 normal heart sound and no murmurs GI soft to palpation, non-tender and non-distended; Negative for hepatosplenomegaly Extremity no clubbing, cyanosis or edema Skin no rashes or lesions noted Neuro no focal motor deficits and no sensory deficits noted Psych affect normal Appearance: appropriate Results Lab / Micro Data Result Diagrams: 05/14/21 17:45 05/14/21 17:45 Labs: Laboratory Results - last 24 hr 05/14/21 17:45: WBC 8.3, RBC 3.67 L, Hgb 11.7 L, Hct 35.1 L, MCV 95.6 H, MCH 31.9, MCHC 33.3, RDW Std Deviation 41.1, RDW Coeff of Cy 11.8, Plt Count 168, MPV 11.3, Immature Gran % (Auto) 0.100, Neut % (Auto) 72.8 H, Lymph % (Auto) 14.9 L, [place] % (Auto) 9.9, Eos % (Auto) 2.1, Baso % (Auto) 0.2, Absolute Neuts (auto) 6.0, Absolute Lymphs (auto) 1.23, Nucleated RBC % 0 05/14/21 17:45: Sodium 137, Potassium 4.8, Chloride 103, Carbon Dioxide 27.0, Anion Gap 7, BUN 28 H, Creatinine 1.72 H, Estim Creat Clear Calc 37.68, Est GFR (MDRD) Af Amer 50 L, Est GFR (MDRD) Non-Af 42 L, BUN/Creatinine Ratio 16.3, Glucose 421 H, Calcium 9.1, Troponin I High Sens 17300 H*, TSH 2.[address] 05/14/21 18:11 IMPRESSION: There are no acute intracranial findings. Electronically Signed: Arnel Le MD at 19:04 EST , Chest X-Ray 05/14/21 18:45 IMPRESSION: There are no acute findings. Electronically Signed: Arnel Le MD at 19:03 EST , Assessment & Plan Assessment/Plan (1) CAD (coronary artery disease): (2) Non-STEMI (non-ST elevated myocardial infarction): (3) Acute kidney injury: PLAN: 1. Non-STEMI/CAD status post CABG/HTN/HLD/TUNG ?2 troponins over 10,000, will consult cardiology for possible heart cath in the morning ?Continue with a heparin drip and nitro for pain ?Continue with his home blood pressure medications ?Continue with his Lipitor ?He received an aspirin in the ER ?Renal function on admission is 1.72 his baseline is around 1.1-1.2, continue with IV fluids and monitor 2. DM2 ?We will hold his home blood sugar medications ?We will place him on Accu-Cheks AC at bedtime and sliding scale insulin ?We will continue to monitor blood sugars and make adjustments 3. Seizure disorder ?Stable ?Continue with Keppra 4. Hypothyroidism ?Stable ?Continue with Synthroid 5. Anxiety/depression ?Stable ?Continue with Remeron and Paxil 6. BPH ?Stable ?Continue with doxazosin DVT: Heparin drip Charges/Coding Visit Charges Inpatient E&M: 32586 Init Hosp L3
--- NOTE | 2021-05-14 19:33 | EKG12_ITS ---
Test Reason : DYSRHYTHMIA Blood Pressure : / mmHG Vent. Rate : 075 BPM Atrial Rate : 075 BPM P-R Int : 150 ms QRS Dur : 082 ms QT Int : 394 ms P-R-T Axes : 049 031 052 degrees QTc Int : 439 ms Sinus rhythm with marked sinus arrhythmia Otherwise normal ECG Confirmed by RACHELE STORM, EDNA ([id number]), subeditor GAYATHRI CISSE ([id number]) on 05/15/2021 2:05:01 PM Referred By: XIN Confirmed By:DIANA JEFFREY MD
[2021-05-14 19:36] LABS: International Normalized Ratio 1.1; Prothrombin Time (Protime)PT. 13.3 SECONDS (11.7-14.9)
[2021-05-14 19:37] LABS: Partial Thromboplast Time 33.2 Seconds (24.1-36.2)
[2021-05-14] MEDS: Nitroglycerin Oint 1 INCH PACKET 0.5 INCH TD (19:41)
[2021-05-14 20:12] LABS: Troponin-I HS 12444 pg/mL (3.0-78.0)
[2021-05-14 20:56] LABS: Bedside Glucose 384 mg/dL (74-106)
[2021-05-14] MEDS: 0.9% Normal Saline 1,000 ML 75 ML IV (21:13)
[2021-05-14] MEDS: Paroxetine 20 MG Tablet PO (21:14)
[2021-05-14] MEDS: Atorvastatin Calcium 80 MG Tablet PO (21:14)
[2021-05-14] MEDS: levETIRAcetam 500 MG Tablet PO (21:14)
[2021-05-14] MEDS: Insulin Lispro 100 UNIT/ML INSULN.PEN SC (21:15)
--- NOTE | 2021-05-14 21:45 | EKG12_ITS ---
Test Reason : CP Blood Pressure : / mmHG Vent. Rate : 080 BPM Atrial Rate : 080 BPM P-R Int : 172 ms QRS Dur : 092 ms QT Int : 380 ms P-R-T Axes : 029 028 067 degrees QTc Int : 438 ms Sinus rhythm with Premature atrial complexes and Premature ventricular complexes or Fusion complexes Otherwise normal ECG Confirmed by RACHELE STORM, EDNA ([id number]), avid editor GAYATHRI CISSE ([id number]) on 05/16/2021 1:36:59 PM Referred By: Confirmed By:DIANA JEFFREY MD
[2021-05-14 22:21] LABS: Troponin-I HS 18996 pg/mL (3.0-78.0)
[2021-05-14] MEDS: MELATONIN 3 MG TABLET PO (22:49)
[2021-05-15] VITALS (17 sets, daily range): BP systolic 132–160; BP diastolic 61–81; PULSE 62–77; RESP 14–18; TEMP 36.4–36.8; O2SAT 94–99
[2021-05-15 01:41] LABS: Absolute Lymphocyte Count 1.15 X10^3/uL (0.83-4.51); Absolute Neutrophil Count 6.5 X10^3/uL (2.0-7.7); Basophil# 0.04 X10^3/uL; Basophil% 0.5 % (0-1); Eosinophil# 0.14 X10^3/uL; Eosinophils% 1.6 % (0-5); Hematocrit 32.7 % (40-54); Hemoglobin 11.1 g/dL (13.0-16.5); Lymphocyte # 1.15 X10^3/ul (0.83-4.51); Mean Corp Hgb Conc 33.9 g/dL (32-36); Mean Corpuscular Hgb 31.6 pg (27.0-32.0); Mean Corpuscular Volume 93.2 fL (80-94); Mean Platelet Vol. 10.8 fl (6.2-12.0); Monocyte# 1.01 X10^3/uL; Monocyte% 11.5 % (0-10); NRBC Flagged by Analyzer 0 % (0-5); Neutrophil # 6.46 X10^3/uL (2.7-7.7); Neutrophil % 73.2 % (47-70); Platelet Count 152 K/mm3 (150-450); RBC Distribution Width CV 11.8 % (11.6-14.6); RBC Distribution Width SD 40.2 fl (35.1-43.9); Red Blood Count 3.51 M/mm3 (4.6-6.2); White Blood Count 8.8 K/mm3 (4.4-11.0)
[2021-05-15 02:26] LABS: Partial Thromboplast Time 95.5 Seconds (24.1-36.2)
[2021-05-15 04:29] LABS: Anion Gap 14 (5-15); BUN 26 mg/dL (7-18); Calcium,Total 7.3 mg/dL (8.5-10.1); Chloride 108 mmol/L (98-107); EST Glomerular Filtration Rate 57 mL/min (>60); Est Glom Filt Rate - Afr Amer 69 mL/min (>60); Estimated Creatinine Clearance 49.85 ml/min; Glucose 228 mg/dL (74-106); Sodium Level 141 mmol/L (136-145)
--- NOTE | 2021-05-15 05:00 | EKG12_ITS ---
Test Reason : CP ADMISSION Blood Pressure : / mmHG Vent. Rate : 069 BPM Atrial Rate : 070 BPM P-R Int : 000 ms QRS Dur : 086 ms QT Int : 384 ms P-R-T Axes : 000 041 107 degrees QTc Int : 411 ms Atrial fibrillation Nonspecific ST and T wave abnormality , probably digitalis effect Abnormal ECG When compared with ECG of 14-MAY-2021 19:18, Atrial fibrillation has replaced Sinus rhythm ST no longer elevated in Inferior leads ST now depressed in Lateral leads Confirmed by RACHELE STORM, EDNA ([id number]), technical writer and editor GAYATHRI CISSE ([id number]) on 05/16/2021 1:39:50 PM Referred By: NILESH Confirmed By:DIANA JEFFREY MD
--- NOTE | 2021-05-15 06:12 | EKG12_ITS ---
Test Reason : AM EKG Blood Pressure : / mmHG Vent. Rate : 068 BPM Atrial Rate : 068 BPM P-R Int : 166 ms QRS Dur : 092 ms QT Int : 390 ms P-R-T Axes : 066 035 077 degrees QTc Int : 414 ms Sinus rhythm with marked sinus arrhythmia Otherwise normal ECG When compared with ECG of 14-MAY-2021 19:18, MANUAL COMPARISON REQUIRED, DATA IS UNCONFIRMED Confirmed by RACHELE STORM, EDNA ([id number]), publishing editor GAYATHRI CISSE ([id number]) on 05/16/2021 1:53:09 PM Referred By: NILESH Confirmed By:DIANA JEFFREY MD
[2021-05-15] MEDS: Levothyroxine 137 MCG Tablet PO (06:26)
[2021-05-15 06:36] LABS: Bedside Glucose 191 mg/dL (74-106)
--- NOTE | 2021-05-15 06:45 | NURSING ---
Dr. Al to floor, heart cath for around noon. Communicated to stop heparin drip. Heparin stopped.
--- NOTE | 2021-05-15 06:49 | ECHOD_ITS ---
Reason For Study: nstemi Procedure This was a 2D Doppler, Color Flow transthoracic echocardiogram. Exam performed portable in patient room. Left Ventricle Normal LV size. Left ventricular systolic function is normal. The estimated ejection fraction is 55 %. Stage 1 diastolic dysfunction. No regional wall motion abnormalities noted. Right Ventricle Normal RV size. Normal systolic function. Atria Normal left atrium. Normal right atrium. Mitral Valve Normal mitral valve. Tricuspid Valve Normal tricuspid valve. Mild tricuspid valve insufficiency. Pulmonary artery systolic pressure is 35 mmHg. Aortic Valve Trisinus/trileaflet aortic valve. Pulmonic Valve The pulmonic valve is not well visualized. Great Vessels Normal aortic root. The pulmonary artery is normal size. Normal inferior vena cava. Pericardium/Pleural No pericardial effusion. MMode/2D Measurements & Calculations LVIDd: 4.3 cm IVSd: 0.97 cm Ao root diam: 2.9 cm LVIDs: 3.1 cm LVPWd: 1.0 cm RVDd: 3.0 cm FS: 26.4 % LAV(MOD-bp): 53.7 ml LA A4 area: 20.5 cm2 LA dimension(2D): 4.6 cm LAV(MOD-bp) Indexed: 28.3 ml/m2 LAV(MOD-sp2): 46.1 ml LAV(MOD-sp4): 62.1 ml RA A4 area: 11.6 cm2 Time Measurements MV dec time: 0.21 sec Doppler Measurements & Calculations MV E max mal: 78.4 cm/sec Lat Peak E' Mal: 8.8 cm/sec Med Peak E' Mal: 5.9 cm/sec MV A max mal: 96.5 cm/sec E/E' lat: 8.9 E/E' med: 13.2 MV E/A: 0.81 Ao V2 max: 153.7 cm/sec LV V1 max: 94.4 cm/sec PA V2 max: 126.2 cm/sec Ao max P.5 mmHg LV V1 max P.6 mmHg TR max mal: 277.8 cm/sec TR max P.9 mmHg ECHO/Echo Complete Interpretation Summary Normal LV size. Left ventricular systolic function is normal. The estimated ejection fraction is 55 %. Stage 1 diastolic dysfunction. Pulmonary artery systolic pressure is 35 mmHg. Ordering Physician: Brannon Al Referring Physician: Performed By: Sandra Serrano RDCS, RVT
--- NOTE | 2021-05-15 06:53 | PCM.CONS.C ---
Assessment & Plan Assessment/Plan (1) Non-STEMI (non-ST elevated myocardial infarction): PLAN: He does present with a non-ST elevation myocardial infarction. He is currently pain-free. My recommendations will be as follows. Aspirin therapy Discontinue heparin at this time in preparation for left heart catheterization Continue beta-surjit Intravenous fluids High intensity statin Will schedule for cardiac catheterization later today. The risk benefits alternatives have been explained to him he understands and agrees to proceed. Addendum: Cardiac catheterization today demonstrated a normal left main coronary artery, Left anterior descending artery totally occluded mid segment Left circumflex artery which is severely diffusely diseased. Right coronary artery which is totally occluded. Saphenous vein graft to right coronary artery which is patent, with disease noted in the posterior lateral branch. MCALLISTER to the LAD which is patent. Preserved left ventricular systolic function. Based on the above angiographic findings would continue and pursue aggressive medical therapy. (2) Benign hypertension: PLAN: His blood pressure was elevated today. We will optimize his blood pressure medications. Thank you for allowing me to participate in the care of your patient. Please don't hesitate to call if any issues arise. HPI Consult Data Date of Consult: 05/15/21 HPI Narrative HPI Narrative: SUSAN FALL, is a 75 M who presents to the emergency room with a 2 to 3-day duration of chest discomfort. He describes this as a heaviness radiating to his shoulder. There was mild diaphoresis noted. He is status post coronary bypass surgery in 1998 with a two-vessel bypass at [facility]. He has not followed up with any precision lens centerer and edger here. He presented to the emergency room and was noted to have no EKG changes but a significantly abnormal cardiac troponin enzyme. He denied any chest discomfort when he got here. He was started on intravenous heparin as well as IV fluids. He did well overnight. Cardiology was called to see him last night. [facility] Medical History Coronary artery disease Diabetes Hypertension Hypothyroidism Stroke/cerebrovascular accident Home Medications carvedilol [Coreg] 12.5 mg PO BIDCM 03/24/17 [History Last Taken 05/14/21] doxazosin 2 mg PO DAILY 03/24/17 [History Last Taken 05/14/21] levothyroxine 137 mcg PO DAILY 03/24/17 [History Last Taken 05/14/21] mirtazapine 30 mg PO QHS 03/24/17 [History Last Taken 05/13/21] paroxetine HCl 20 mg PO QHS 03/24/17 [History Last Taken 05/13/21] Lantus U-100 Insulin 25 unit SQ QHS 04/08/17 [History Last Taken 05/13/21] diphenhydramine HCl [Banophen] 25 mg PO QHS 04/08/17 [History Last Taken 05/13/21] insulin aspart U-100 [Novolog Flexpen U-100 Insulin] 9 units SUBCUT TIDCM 04/08/17 [History Last Taken 05/14/21] metformin 500 mg PO BIDCM 04/08/17 [History Last Taken 05/14/21] amlodipine 10 mg PO DAILY 05/14/21 [History Last Taken 05/14/21] atorvastatin 80 mg PO QHS 05/14/21 [History Last Taken 05/13/21] levetiracetam 500 mg PO BID 05/14/21 [History Last Taken 05/14/21] semaglutide [Ozempic] 1 mg SUBCUT FR 05/14/21 [History Last Taken 05/09/21] Allergy/AdvReac Type Severity Reaction Status Date / Time No Known Allergies Allergy Verified 05/14/21 17:33 Family History Other Heart disease Surgical History Hx of CABG Social History Smoking Status: Former smoker ROS Constitutional Constitutional: Denies fever(s) or weight loss Eyes Eyes: Reports systems reviewed and no addt'l complaints, except as documented ENT HEENT: Reports systems reviewed and no addt'l complaints, except as documented Cardiovascular Cardiovascular: Reports chest pain at rest and chest pain with activity; Denies dyspnea at rest, dyspnea on exertion, edema, palpitations or paroxysmal nocturnal dyspnea Respiratory/Chest Respiratory/Chest: Denies dyspnea on exertion, productive cough, shortness of breath at rest or shortness of breath with exertion Gastrointestinal Gastrointestinal: Denies change in bowel habits, nausea, vomiting or weight changes Genitourinary Genitourinary: Denies difficulty urinating Musculoskeletal Musculoskeletal: Denies joint stiffness or muscle weakness Integumentary Integumentary: Denies lesions Neurologic Neurologic: Denies dizziness or syncope Psychiatric Psychiatric: Denies anxiety Endocrine Endocrinology: Denies excessive sweating or fatigue Hematologic/Lymphatic Hematologic/Lymphatic: Denies anemia Allergic/Immunologic Allergic/Immunologic: Denies seasonal rhinorrhea Physical Exam Const alert, oriented x3 and no apparent distress General Appearance: cooperative HEENT hearing grossly normal bilaterally Head and Scalp: atraumatic Eyes EOMs intact bilaterally Neck General: normal visual inspection Chest inspection of chest normal and palpation of chest normal Resp normal respiratory effort Auscultation: clear to auscultation bilaterally Cardio regular rate, regular rhythm, S1 normal heart sound and S2 normal heart sound Jugular Venous Distention: JVD GI normal to inspection, nondistended, normoactive bowel sounds Extremity normal capillary refill and no pedal edema Peripheral Pulses: Yes pulses 2+ throughout and femoral pulses present Skin no rashes or lesions noted Neuro oriented x3 and CN's II-XII intact bilaterally Psych Appearance: grossly normal and appropriate Risk Stratification Risk Stratification Applicable: Yes Age >/= 65: Yes >/= 3 CAD Risk Factors (HTN, HLD, DM, family hx of CAD, or current smoker): Yes Aspirin Use in the Past 7 Days: Yes Severe Angina (>/= episodes in 24 hours): Yes EKG ST Changes >/= 0.5mm: No Positive Cardiac Marker: Yes RICHY Risk Stratification Score: 5 RICHY % Risk: 25% Risk Objective Data Vital Signs: Vital Signs Temp Pulse Resp BP Pulse Ox 98.1 F 73 16 138/70 H 95 05/15/21 06:25 05/15/21 06:25 05/15/21 06:25 05/15/21 06:25 05/15/21 06:25 Oxygen Delivery Method Room Air Weight: 164 lb 3.91 oz Body Mass Index (BMI) 24.2 Intake & Output: Intake and Output for Last 24 Hours 05/13/21 05/14/21 05/15/21 23:59 23:59 23:59 Intake Total 345.32 / 345.32 Balance 345.32 / 345.32 Lab / Micro Data Result Diagrams: 05/15/21 01:33 05/15/21 01:33 Labs: Laboratory Results - last 24 hr 05/14/21 17:45: WBC 8.3, RBC 3.67 L, Hgb 11.7 L, Hct 35.1 L, MCV 95.6 H, MCH 31.9, MCHC 33.3, RDW Std Deviation 41.1, RDW Coeff of Cy 11.8, Plt Count 168, MPV 11.3, Immature Gran % (Auto) 0.100, Neut % (Auto) 72.8 H, Lymph % (Auto) 14.9 L, Dupage % (Auto) 9.9, Eos % (Auto) 2.1, Baso % (Auto) 0.2, Absolute Neuts (auto) 6.0, Absolute Lymphs (auto) 1.23, Nucleated RBC % 0 05/14/21 17:45: Sodium 137, Potassium 4.8, Chloride 103, Carbon Dioxide 27.0, Anion Gap 7, BUN 28 H, Creatinine 1.72 H, Estim Creat Clear Calc 37.68, Est GFR (MDRD) Af Amer 50 L, Est GFR (MDRD) Non-Af 42 L, BUN/Creatinine Ratio 16.3, Glucose 421 H, Calcium 9.1, Troponin I High Sens 01952 H*, TSH 2.12 05/14/21 17:45: PT 13.3, INR 1.1, APTT 33.2 05/14/21 19:45: Troponin I High Sens 01552 H* 05/14/21 20:42: POC Glucose 384 H 05/14/21 21:52: Troponin I High Sens 38005 H* 05/15/21 01:33: Sodium 141, Potassium 4.0, Chloride 108 H, Carbon Dioxide 19.0 L, Anion Gap 14, BUN 26 H, Creatinine 1.30, Estim Creat Clear Calc 49.85, Est GFR (MDRD) Af Amer 69, Est GFR (MDRD) Non-Af 57 L, BUN/Creatinine Ratio 20.0, Glucose 228 H, Calcium 7.3 L 05/15/21 01:33: WBC 8.8, RBC 3.51 L, Hgb 11.1 L, Hct 32.7 L, MCV 93.2, MCH 31.6, MCHC 33.9, RDW Std Deviation 40.2, RDW Coeff of Cy 11.8, Plt Count 152, MPV 10.8, Immature Gran % (Auto) 0.200, Neut % (Auto) 73.2 H, Lymph % (Auto) 13.0 L, Dup[place] % (Auto) 11.5 H, Eos % (Auto) 1.6, Baso % (Auto) 0.5, Absolute Neuts (auto) 6.5, Absolute Lymphs (auto) 1.15, Nucleated RBC % 0 05/15/21 01:33: APTT 95.5 H* 05/15/21 06:30: POC Glucose 191 H Rhythm Strip Rhythm Strip: Sinus Rhythm Rate: 83 Ectopy: PAC(s) Cardiology Labs/Tests 05/14/21 17:45: WBC 8.3, RBC 3.67 L, Hgb 11.7 L, Hct 35.1 L, MCV 95.6 H, MCH 31.9, MCHC 33.3, Plt Count 168, MPV 11.3, Immature Gran % (Auto) 0.100, Neut % (Auto) 72.8 H, Lymph % (Auto) 14.9 L, [place] % (Auto) 9.9, Eos % (Auto) 2.1, Baso % (Auto) 0.2, Absolute Neuts (auto) 6.0, Nucleated RBC % 0 05/14/21 17:45: Sodium 137, Potassium 4.8, Chloride 103, Carbon Dioxide 27.0, Anion Gap 7, BUN 28 H, Creatinine 1.72 H, Est GFR (MDRD) Af Amer 50 L, Est GFR (MDRD) Non-Af 42 L, BUN/Creatinine Ratio 16.3, Glucose 421 H, Calcium 9.1 05/14/21 17:45: PT 13.3, INR 1.1, APTT 33.2 05/15/21 01:33: Sodium 141, Potassium 4.0, Chloride 108 H, Carbon Dioxide 19.0 L, Anion Gap 14, BUN 26 H, Creatinine 1.30, Est GFR (MDRD) Af Amer 69, Est GFR (MDRD) Non-Af 57 L, BUN/Creatinine Ratio 20.0, Glucose 228 H, Calcium 7.3 L 05/15/21 01:33: WBC 8.8, RBC 3.51 L, Hgb 11.1 L, Hct 32.7 L, MCV 93.2, MCH 31.6, MCHC 33.9, Plt Count 152, MPV 10.8, Immature Gran % (Auto) 0.200, Neut % (Auto) 73.2 H, Lymph % (Auto) 13.0 L, Dup[place] % (Auto) 11.5 H, Eos % (Auto) 1.6, Baso % (Auto) 0.5, Absolute Neuts (auto) 6.5, Nucleated RBC % 0 05/15/21 01:33: APTT 95.5 H* Rhythm: EKG: ECHO: Stress Test: Cardiac Cath: PCI: CT Surgery: Holter monitor: EPS: PPM: CXR: Chest CT Scan: Radiography Diagnostic Testing: Radiology Impression Brain CT 05/14/21 18:11 IMPRESSION: There are no acute intracranial findings. Electronically Signed: Arnel Le MD at 19:04 EST , Chest X-Ray 05/14/21 18:45 IMPRESSION: There are no acute findings. Electronically Signed: Arnel Le MD at 19:03 EST ,
--- NOTE | 2021-05-15 10:08 | CASEMGMT ---
Pt has VA benefits but also has [facility] secondary. According to the [facility] website, the following are in-network tertiary facilities: [facility], [place], [facility], [facility], [facility], [facility], and . Govind BRENNER CM
[2021-05-15] MEDS: 0.9% Normal Saline 1,000 ML 75 ML IV (10:35)
[2021-05-15 11:06] LABS: Bedside Glucose 102 mg/dL (74-106)
--- NOTE | 2021-05-15 11:20 | CASEMGMT ---
RN CM CARD CUTTER HELPER CM to room for initial transition planning/care coordination assessment. Pt out of room for heart cath. Pt's , Cristiane, in room. Assessment completed w/ at this time. Care providers, pharmacy, and demographics verified/updated at this time. PCP: Estephania BLANC Specialists: Machine Package Sealer @ [place] Preferred Pharmacy: [facility] Retail Insurance: [employer]YY[employer], [employer] [facility] Prescription Benefit: Yes Living Will/HPOA: Pt has LW and HPOA, who is his , Cristiane LNOK: , Cristiane Living Arrangements: Lives w/ in mobile home w/4 steps to enter. Independent w/ADL's. does home mgmt tasks and helps pt to manage medications and appts. 2 sons live nearby and are supportive. Transportation: Pt, DME: Pt has the following DME: cane that he uses @ times, rollator available, functioning glucometer w/supplies, grab bars, built-in shower seat states no need for further DME at this time. HHC/SNF: Hx: [facility] RU or TCU. No hx of HHC. denies need for HHC. wishes for pt to return home and states has no concerns with him going home at time of discharge. Pt states does not smoke or drink ETOH. CM to follow for any further discharge planning/needs. voices no further concerns/needs at this time. Advised her to ask for CM if any further questions/concerns/needs arise. Voices understanding. PLAN: Home w/spousal support and discharge plans in place Yash CASTRO RN CM
--- NOTE | 2021-05-15 12:10 | NURSING ---
Report called to lab manager to Sasha BRENNER
--- NOTE | 2021-05-15 12:46 | CL.D_ITS ---
Patient Name: SUSAN FALL Study Date: 05/15/2021 Performing: Brannon Al MD Ht: 68.89 inches 175 cm : 1945 Wt: 165.35 lbs 75 kg Age: 75 Gender: male BSA: 1.9 PROCEDURE(S) PERFORMED DC03-([id number])LHC/COR/LV/CABG CLINICAL PROFILE AND INDICATIONS Indications: Suspected CAD Heart Failure: None Stress/Imaging Stress/Image Study Performed: No CONCLUSIONS Severe triple-vessel disease with patent MCALLISTER to the LAD, and saphenous vein graft to right coronary artery. The posterior lateral vessel has an 80% stenotic lesion noted distally and it was felt to be too difficult to get to this successfully with PCI. RECOMMENDATIONS Medical therapy DESCRIPTION OF PROCEDURE The patient arrived to the procedure lab. The risks and benefits of the procedure as well as a full d escription of our services here and current unavailability of surgical backup were fully explained to the patient and/or their significant other prior to the catheterization. The Timeout was completed, verifying the correct patient and procedure. The patient's procedural site was prepped and draped in the usual fashion. Local anesthetic was given subcutaneously to right groin region with Lidocaine 2%. Using a modified Seldinger technique, arterial access was obtained via the right femoral artery, a 5 Fr sheath was inserted. Left Coronary Artery selective angiography was performed in multiple views u sing a 5 Fr. JL4 catheter. Right Coronary Artery selective angiography was then performed in multiple views using a 5 Fr. 3DRC (Rolan) catheter. Saphenous Vein graft to the RCA selective angiography was performed in multiple views using a 5 Fr. 3DRC (Rolan) catheter. Left internal mammary artery graft to the LAD selective angiography was performed in multiple views using a 5 Fr. 3 DRC (Rolan) catheter. Left Ventriculography was performed in PATEL projection using a 5 Fr. Pigtail catheter. LV to AO pullback pressures were then recorded.The arterial sheath was pulled and manual co mpression applied until hemostasis is achieved. CORONARY ANGIOGRAPHY DOMINANCE: Right Dominant LEFT HEART ASSESSMENT Left Ventricular Ejection Fraction: by LV Gram 55 % Posterior Lateral Akinesis Normal Left Ventricular systolic function LEFT MAIN: Mild calcification LEFT ANTERIOR DESCENDING ARTERY: MID LAD: is occluded DISTAL LAD: Moderate luminal irregularities up to 50% CIRCUMFLEX ARTERY: OM 1: Proximal - moderate diffuse disease RIGHT CORONARY ARTERY: OSTIAL RCA: is occluded RT PLV: 80 post anastomotic area % Stenosis GRAFTS: MCALLISTER graft to the Mid LAD is patent Saphenous Vein graft to the RPDA is patent COMPLICATIONS No Complications PROCEDURE MEDICATIONS Fentanyl 50 mcg IV Versed 1 mg IV Oxygen: 2 L/min via nasal cannula Baby Aspirin (81mg) 1 Tabs PO @ 05/15/2021 11:43:42 Nitro patch on left shoulder ^FreeText^ 05/15/2021 11:38:09 SUMMARY OF HEMODYNAMIC DATA Time AIR REST ECG 11:36:30 AO 158/62 (100) SA 12:22:28 LV 153/2, 20 12:30:10 LV 153/1, 9 12:30:17 LV 156/7, 20 12:30:59 LV 155/5, 16 12:31:05 LVp 162/7, 27 12:31:14 AOp 165/62 (104) 12:31:19 Signed By Brannon Al MD On 05/15/2021 12:46:25 Brannon Al MD
--- NOTE | 2021-05-15 13:57 | CHAPLAIN ---
Type of Pastoral Visit _x__ Initial Visit ___ Follow-up Visit ___ On-call Visit ___ General Patient Visit ___ Spiritual Assessment ___ Family Conference ___ Bereavement ___ Rapid Response ___ Code Blue ___ Other (describe below) Pastoral Care Referral From _x__ Patient ___ Family ___ Nurse ___ Physician ___ Etl Lead ___ Kitchen Utility Associate ___ Other (describe below) Sacrament/Intervention _x__ Active listening ___ Anointing ___ Judaism ___ Bereavement ___ Communion _x__ Leighann exploration ___ ___ Life review _x__ Prayer ___ Reconciliation ___ Sacrament of Sick _x__ Supportive presence ___ Wedding ___ Other (describe below) Pastoral Comments patient just returned from [facility]; pt relieved that nothing else was needed to be done at this time; spouse is with pt; both express thanks for the presence of spiritual care; pt would like prayer for full recovery; otherwise casual conversation
[2021-05-15] MEDS: amLODIPine 10 MG Tablet PO (14:50)
[2021-05-15] MEDS: levETIRAcetam 500 MG Tablet PO ×2 (14:50→20:54)
[2021-05-15] MEDS: Insulin Lispro 100 UNIT/ML INSULN.PEN SC ×2 (15:55→21:05)
[2021-05-15] MEDS: Carvedilol 25 MG Tablet PO (15:55)
[2021-05-15 15:56] LABS: Bedside Glucose 241 mg/dL (74-106)
--- NOTE | 2021-05-15 18:02 | NURSING ---
Pt bedrest completed. Ambulated to bathroom and back into bed without difficulty. Rt groin site remains soft and dressing C/D/I. This RN advised of precautions regarding groin access for heart caths and ambulation/movements. Pt is impulsive. Bed alarm set & call light in reach, reinforced education on post cath care. Pt and both verbalized understanding.
[2021-05-15] MEDS: Acetaminophen 325 MG Tablet 650 MG PO (19:01)
--- NOTE | 2021-05-15 19:06 | PCM.PN.HOSP ---
Subjective Subjective Patient was seen and examined today, he underwent a cardiac catheterization today but there was no occlusive coronary artery disease to address at this time. Patient will be treated medically according to cardiology. Patient has no complaints of any chest pain or shortness of breath at the time of my examination. Objective Data Objective Data Vital Signs: Vital Signs Temp Pulse Resp BP Pulse Ox 97.5 F L 77 16 153/64 H 97 05/15/21 15:45 05/15/21 15:45 05/15/21 15:45 05/15/21 15:45 05/15/21 15:45 Oxygen Delivery Method Room Air Weight: 74.5 kg Body Mass Index (BMI) 24.2 Intake & Output: Intake and Output for Last 24 Hours 05/13/21 05/14/21 05/15/21 23:59 23:59 23:59 Intake Total 1909. / Balance / Lab / Micro Data Result Diagrams: 05/15/21 01:33 05/15/21 01:33 Labs: Laboratory Results - last 24 hr 05/14/21 17:45: PT 13.3, INR 1.1, APTT 33.2 05/14/21 19:45: Troponin I High Sens 62827 H* 05/14/21 20:42: POC Glucose 384 H 05/14/21 21:52: Troponin I High Sens 29011 H* 05/15/21 01:33: Sodium 141, Potassium 4.0, Chloride 108 H, Carbon Dioxide 19.0 L, Anion Gap 14, BUN 26 H, Creatinine 1.30, Estim Creat Clear Calc 49.85, Est GFR (MDRD) Af Amer 69, Est GFR (MDRD) Non-Af 57 L, BUN/Creatinine Ratio 20.0, Glucose 228 H, Calcium 7.3 L 05/15/21 01:33: WBC 8.8, RBC 3.51 L, Hgb 11.1 L, Hct 32.7 L, MCV 93.2, MCH 31.6, MCHC 33.9, RDW Std Deviation 40.2, RDW Coeff of Cy 11.8, Plt Count 152, MPV 10.8, Immature Gran % (Auto) 0.200, Neut % (Auto) 73.2 H, Lymph % (Auto) 13.0 L, [place] % (Auto) 11.5 H, Eos % (Auto) 1.6, Baso % (Auto) 0.5, Absolute Neuts (auto) 6.5, Absolute Lymphs (auto) 1.15, Nucleated RBC % 0 05/15/21 01:33: APTT 95.5 H* 05/15/21 06:30: POC Glucose 191 H 05/15/21 09:50: APTT 34.0 05/15/21 10:53: POC Glucose 102 05/15/21 15:51: POC Glucose 241 H Radiography Diagnostic Testing: Radiology Impression Echocardiogram 05/15/21 06:49 Interpretation Summary Normal LV size. Left ventricular systolic function is normal. The estimated ejection fraction is 55 %. Stage 1 diastolic dysfunction. Pulmonary artery systolic pressure is 35 mmHg. Ordering Physician: Brannon Al Referring Physician: [facility] Performed By: Sandra Serrano RDCS, RVT Rhythm Strip Rhythm Strip: Sinus Rhythm Rate: 83 Ectopy: PAC(s) Physical Exam Const alert, oriented x3, no apparent distress and healthy appearing General Appearance: cooperative, well kempt and well developed Orientation / Consciousness: awake, oriented to person, oriented to place and oriented to time HEENT normocephalic and moist oral mucous membranes Eyes PERRL, EOMs intact bilaterally and conjunctivae normal Neck nuchal rigidity, supple, no JVD, thyroid normal and no carotid bruits General: trachea midline Resp normal respiratory effort and clear to auscultation bilaterally Auscultation: Negative for rales, rhonchi or wheezes Cardio regular rate, regular rhythm, no murmurs, no rub and no gallops GI normal to inspection, nondistended, normoactive bowel sounds, soft to palpation, non-tender and non-distended Extremity no clubbing, cyanosis or edema Skin no rashes or lesions noted General Skin Exam: no breakdown Neuro oriented x3, CN's II-XII intact bilaterally, no focal motor deficits and no sensory deficits noted Sensorium / Orientation: awake and alert Speech: speech normal Psych affect normal Assessment & Plan Assessment/Plan (1) Non-STEMI (non-ST elevated myocardial infarction): PLAN: 1. [id number] will remain on his present medications per cardiology #2 atherosclerotic heart disease-patient will remain on medications per cardiology #3 type 2 diabetes-blood sugars will be monitored, sliding scale insulin will be given #4 essential hypertension-patient will remain on his present medications #5 hyperlipidemia-patient will remain on statin #6 chronic depression-patient is on Paxil #7 hypothyroidism-patient is currently on Synthroid #8 cerebrovascular disease-patient will take aspirin 81 mg daily Charges/Coding Visit Charges Inpatient E&M: 27695 Subs Hosp L2
[2021-05-15] MEDS: Paroxetine 20 MG Tablet PO (20:54)
[2021-05-15] MEDS: Atorvastatin Calcium 80 MG Tablet PO (20:55)
[2021-05-15 21:20] LABS: Bedside Glucose 242 mg/dL (74-106)
[2021-05-16] MEDS: 0.9% Normal Saline 1,000 ML 75 ML IV (00:06)
[2021-05-16 03:00] VITALS: BP 141/69; PULSE 71; PULSE 74; RESP 14; TEMP 36.4; O2SAT 96
[2021-05-16 06:31] LABS: Hematocrit 32.4 % (40-54); Hemoglobin 10.7 g/dL (13.0-16.5); Mean Corpuscular Hgb 31.3 pg (27.0-32.0); Mean Corpuscular Volume 94.7 fL (80-94); Mean Platelet Vol. 11.4 fl (6.2-12.0); Platelet Count 147 K/mm3 (150-450); RBC Distribution Width SD 41.9 fl (35.1-43.9); Red Blood Count 3.42 M/mm3 (4.6-6.2); White Blood Count 7.2 K/mm3 (4.4-11.0)
[2021-05-16 06:40] LABS: International Normalized Ratio 1.1; Prothrombin Time (Protime)PT. 13.8 SECONDS (11.7-14.9)
[2021-05-16 06:41] LABS: Partial Thromboplast Time 39.7 Seconds (24.1-36.2)
[2021-05-16 06:58] LABS: Anion Gap 4 (5-15); BUN 19 mg/dL (7-18); BUN/Creat Ratio 15.7 RATIO (10-20); Calcium,Total 8.2 mg/dL (8.5-10.1); Chloride 108 mmol/L (98-107); Creatinine, Serum 1.21 mg/dL (0.70-1.30); EST Glomerular Filtration Rate 62 mL/min (>60); Est Glom Filt Rate - Afr Amer 75 mL/min (>60); Estimated Creatinine Clearance 53.56 ml/min; Glucose 149 mg/dL (74-106); Potassium 4.1 mmol/L (3.5-5.1); Sodium Level 139 mmol/L (136-145)
[2021-05-16] MEDS: Insulin Lispro 100 UNIT/ML INSULN.PEN SC (06:58)
[2021-05-16] MEDS: Levothyroxine 137 MCG Tablet PO (06:58)
[2021-05-16 07:06] LABS: Bedside Glucose 172 mg/dL (74-106)
[2021-05-16] MEDS: levETIRAcetam 500 MG Tablet PO (07:34)
[2021-05-16] MEDS: Carvedilol 25 MG Tablet PO (07:34)
[2021-05-16] MEDS: amLODIPine 10 MG Tablet PO (07:34)
[2021-05-16] MEDS: Aspirin E.C. 81 MG Tablet PO (07:37)
[2021-05-16 09:00] VITALS: BP 138/62; PULSE 73; RESP 16; TEMP 37.1; O2SAT 94
[2021-05-16 09:10] VITALS: PULSE 72
--- NOTE | 2021-05-16 10:14 | PN.CARD_ITS ---
Subjective Subjective Patient seen and evaluated. Doing well today. No complaints Objective Data Vital Signs: Vital Signs Temp Pulse Resp BP Pulse Ox 98.8 F 72 16 138/62 H 94 05/16/21 09:00 05/16/21 09:10 05/16/21 09:00 05/16/21 09:00 05/16/21 09:00 Oxygen Delivery Method Room Air Weight: 164 lb 3.91 oz Body Mass Index (BMI) 24.2 Intake & Output: Intake and Output for Last 24 Hours 05/14/21 05/15/21 05/16/21 23:59 23:59 23:59 Intake Total 1910.00 / 2210.00 1122.5 / 1122.5 Output Total 950 / 950 Balance 1910.00 / 1510.00 172.5 / 172.5 Lab / Micro Data Result Diagrams: 05/16/21 05:20 05/16/21 05:20 Labs: Laboratory Results - last 24 hr 05/15/21 09:50: APTT 34.0 05/15/21 10:53: POC Glucose 102 05/15/21 15:51: POC Glucose 241 H 05/15/21 21:03: POC Glucose 242 H 05/16/21 05:20: WBC 7.2, RBC 3.42 L, Hgb 10.7 L, Hct 32.4 L, MCV 94.7 H, MCH 31.3, MCHC 33.0, RDW Std Deviation 41.9, RDW Coeff of Cy 12.0, Plt Count 147 L, MPV 11.4 05/16/21 05:20: PT 13.8, INR 1.1, APTT 39.7 H 05/16/21 05:20: Sodium 139, Potassium 4.1, Chloride 108 H, Carbon Dioxide 27.0, Anion Gap 4 L, BUN 19 H, Creatinine 1.21, Estim Creat Clear Calc 53.56, Est GFR (MDRD) Af Amer 75, Est GFR (MDRD) Non-Af 62, BUN/Creatinine Ratio 15.7, Glucose 149 H, Calcium 8.2 L 05/16/21 06:56: POC Glucose 172 H Rhythm Strip Rhythm Strip: Sinus Rhythm Rate: 83 Ectopy: PAC(s) Cardiology Labs/Tests 05/15/21 09:50: APTT 34.0 05/16/21 05:20: WBC 7.2, RBC 3.42 L, Hgb 10.7 L, Hct 32.4 L, MCV 94.7 H, MCH 31.3, MCHC 33.0, Plt Count 147 L, MPV 11.4 05/16/21 05:20: PT 13.8, INR 1.1, APTT 39.7 H 05/16/21 05:20: Sodium 139, Potassium 4.1, Chloride 108 H, Carbon Dioxide 27.0, Anion Gap 4 L, BUN 19 H, Creatinine 1.21, Est GFR (MDRD) Af Amer 75, Est GFR (MDRD) Non-Af 62, BUN/Creatinine Ratio 15.7, Glucose 149 H, Calcium 8.2 L Rhythm: EKG: ECHO: Stress Test: Cardiac Cath: PCI: CT Surgery: Holter monitor: EPS: PPM: CXR: Chest CT Scan: Physical Exam Const alert, oriented x3 and no apparent distress General Appearance: cooperative HEENT hearing grossly normal bilaterally Head and Scalp: atraumatic Eyes EOMs intact bilaterally Neck General: normal visual inspection Chest inspection of chest normal and palpation of chest normal Resp normal respiratory effort Auscultation: clear to auscultation bilaterally Cardio regular rate, regular rhythm, S1 normal heart sound and S2 normal heart sound Jugular Venous Distention: JVD GI normal to inspection, nondistended, normoactive bowel sounds Extremity normal capillary refill and no pedal edema Peripheral Pulses: Yes pulses 2+ throughout and femoral pulses present Skin no rashes or lesions noted Neuro oriented x3 and CN's II-XII intact bilaterally Psych Appearance: grossly normal and appropriate Assessment & Plan Assessment/Plan (1) Non-STEMI (non-ST elevated myocardial infarction): PLAN: He did present with a non-ST elevation myocardial infarction. He is currently pain-free. My recommendations will be as follows. * Aspirin therapy * Continue statin * Continue beta-surjit * Continue JOYA or ARB * Addendum: Cardiac catheterization demonstrated a normal left main coronary artery, Left anterior descending artery totally occluded mid segment Left circumflex artery which is severely diffusely diseased. Right coronary artery which is totally occluded. Saphenous vein graft to right coronary artery which is patent, with disease noted in the posterior lateral branch. MCALLISTER to the LAD which is patent. Preserved left ventricular systolic function. Based on the above angiographic findings would continue and pursue aggressive medical therapy. (2) Benign hypertension: PLAN: His blood pressure was elevated today. We will optimize his blood pressure medications. Continue beta-surjit Continue calcium channel surjit Continue ARB Patient can be discharged today for outpatient follow-up. Thank you for allowing me to participate in the care of your patient. Please don't hesitate to call if any issues arise.
--- NOTE | 2021-05-16 10:32 | DCINST_ITS ---
Discharge Instructions Diet Discharge Diet: 1800 Calorie Control Diet Activity Discharge Activity: Return to Normal Activity and [address] Drive Weight Bearing Status: Full weight bearing Follow Up Care Test Results: Test results from this visit will be discussed in further detail at your follow-up appointment, if applicable. Discharge Plan Admission Admit Date/Time: 05/14/21 19:24 Primary Reason for Your Visit: non st elevation [place] Attending Provider: Glynn Robertson Primary Care Provider: [facility],[place] Consulting Providers: Brannon Al Discharge Orders/Prescriptions Prescriptions: New carvedilol 25 mg Tablet 25 mg PO BIDCM Qty: 60 RF: 0 aspirin 81 mg Tablet,Delayed Release (Dr/Ec) 81 mg PO BREAKFAST Qty: 0 RF: 0 losartan 25 mg Tablet 25 mg PO DAILY Qty: 30 RF: 0 Continued levothyroxine 137 MCG tablet 137 mcg PO DAILY RF: 0 doxazosin 1 MG tablet 2 mg PO DAILY RF: 0 paroxetine HCl 20 MG tablet 20 mg PO QHS RF: 0 mirtazapine 15 MG tablet 30 mg PO QHS RF: 0 metformin 500 MG tablet 500 mg PO BIDCM RF: 0 Lantus U-100 Insulin 100 UNIT/ML solution 25 unit SQ QHS RF: 0 diphenhydramine HCl [Banophen] 25 MG capsule 25 mg PO QHS RF: 0 insulin aspart U-100 [Novolog Flexpen U-100 Insulin] 100 UNITS/ML insulin pen 9 units subcut TIDCM RF: 0 atorvastatin 80 mg Tablet 80 mg PO QHS RF: 0 levetiracetam 500 mg Tablet 500 mg PO BID RF: 0 amlodipine 10 mg Tablet 10 mg PO DAILY RF: 0 semaglutide 1 mg/dose (2 mg/1.5 mL) Pen Injector 1 mg SUBCUT FR RF: 0 Discontinued carvedilol [Coreg] 12.5 MG tablet 12.5 mg PO BIDCM RF: 0 Referrals / Follow Up: Brannon Al MD [STAFF PHYSICIAN] - See Referral Note (Office will call to schedule appointment, if you do not hear from their office within a week, call to schedule an appointment) [facility],[place] [Primary Care Provider] - See Referral Note (Call and arrange for follow-up appointment) Disposition Disposition (needs filled in before D/C Order can be placed): Home, Self Care
--- NOTE | 2021-05-16 10:38 | DS.PCM_ITS ---
Providers Date of Admission: 05/14/21 Date of Discharge: 05/16/21 Primary Care Physician: [facility] Consultations 05/14/21 20:35 Consult: Cardiology Routine Consulting Provider: Brannon Al Reason for Consult: NSTEMI EMERGENT Consult: No MD Notified: Yes Date Notified: 05/14/21 Time Notified: 19:30 Method of Notification: Verbal Reason For Visit: NSTEMI Diagnosis Discharge Diagnosis (1) Non-STEMI (non-ST elevated myocardial infarction): Status: Acute Code(s): I21.4 - Non-ST elevation (NSTEMI) myocardial infarction (2) Benign hypertension: Status: Chronic Code(s): I10 - Essential (primary) hypertension Plan: Final diagnosis: #1 non-STEMI type II secondary to coronary artery disease #2 atherosclerotic heart disease-occlusive #3 type 2 diabetes #4 essential hypertension #5 hyperlipidemia #6 chronic depression #7 cerebrovascular disease #8 hypothyroidism #9 mild pulmonary hypertension Medications at Discharge Home Medications doxazosin 2 mg PO DAILY 03/24/17 levothyroxine 137 mcg PO DAILY 03/24/17 mirtazapine 30 mg PO QHS 03/24/17 paroxetine HCl 20 mg PO QHS 03/24/17 Lantus U-100 Insulin 25 unit SQ QHS 04/08/17 diphenhydramine HCl [Banophen] 25 mg PO QHS 04/08/17 insulin aspart U-100 [Novolog Flexpen U-100 Insulin] 9 units SUBCUT TIDCM 04/08/17 metformin 500 mg PO BIDCM 04/08/17 amlodipine 10 mg PO DAILY 05/14/21 atorvastatin 80 mg PO QHS 05/14/21 levetiracetam 500 mg PO BID 05/14/21 semaglutide 1 mg SUBCUT FR 05/14/21 aspirin 81 mg PO BREAKFAST #0 tab 05/16/21 carvedilol 25 mg PO BIDCM #60 tab 05/16/21 losartan 25 mg PO DAILY #30 tab 05/16/21 Hospital Course Operations None Procedures 2-D Echocardiogram and Cardiac catheterization Summary of Care Provided Minutes Spent on Discharge: 33 Hospital Course: This 75-year-old white male was seen in the emergency room at [facility] with complaints of substernal chest pain, patient states it started 2 to 3 days prior with sudden onset, he complained of a pressure-like sensation in his chest that lasted all day the day he came to the emergency room. Patient did complain of some shortness of breath and pain betw een his shoulder blades. Work-up in the emergency room included a CBC which was remarkable for hemoglobin of 11.7, creatinine was elevated at 1.72, BUN was 28, troponin was elevated at 10,482. Chest x-ray showed no abnormal findings, EKG showed nonspecific ST-T wave abnormality, PACs were noted, there was evidence of a prior inferior wall infarction. A second troponin was ordered and it was over 12,000, patient was placed on a heparin drip and given Nitropaste which relieved his chest pain. Case was discussed with cardiology. Patient was admitted to PCU for a type II non-STEMI, the next day he was seen in consultation with cardiology who performed a cardiac catheterization which showed evidence of occlusive coronary disease but no intervention could be performed. It was felt the patient could be treated medically. On 05/16/2021, patient was seen and examined: On examination he appeared in good health and spirits. Vital signs as documented. Skin warm and dry and without overt rashes. Neck without JVD, neck was supple, trachea midline, thyroid was normal. Lungs clear bilaterally, normal air movement was noted. Heart exam notable for regular rhythm, normal sounds and absence of murmurs, rubs or gallops. Abdomen unremarkable and without evidence of organomegaly, masses, or abdominal aortic enlargement. Bowel sounds are present, abdomen is not distended. Extremities nonedematous, no cyanosis was noted, no clubbing was noted. Neuro: Cranial nerves II through XII are grossly intact, no focal motor deficits were noted, sensation to light touch and pinprick intact, motor exam 5/5 throughout. Psych: Patient is alert and oriented x3, he does not appear anxious or depressed, he does not appear agitated. On 05/16/2021, patient was seen and examined felt to be stable for discharge home Weight / BMI Weight Weight: 74.5 kg Body Mass Index (BMI) 24.2 ABG / Lab / Microbiology Data Result Diagrams: 05/16/21 05:20 05/16/21 05:20 Laboratory: Laboratory Results - last 24 hr 05/15/21 10:53: POC Glucose 102 05/15/21 15:51: POC Glucose 241 H 05/15/21 21:03: POC Glucose 242 H 05/16/21 05:20: WBC 7.2, RBC 3.42 L, Hgb 10.7 L, Hct 32.4 L, MCV 94.7 H, MCH 31.3, MCHC 33.0, RDW Std Deviation 41.9, RDW Coeff of Cy 12.0, Plt Count 147 L, MPV 11.4 05/16/21 05:20: PT 13.8, INR 1.1, APTT 39.7 H 05/16/21 05:20: Sodium 139, Potassium 4.1, Chloride 108 H, Carbon Dioxide 27.0, Anion Gap 4 L, BUN 19 H, Creatinine 1.21, Estim Creat Clear Calc 53.56, Est GFR (MDRD) Af Amer 75, Est GFR (MDRD) Non-Af 62, BUN/Creatinine Ratio 15.7, Glucose 149 H, Calcium 8.2 L 05/16/21 06:56: POC Glucose 172 H D/C Instructions Discharge Diet: 1800 Calorie Control Diet Weight Bearing Status: Full weight bearing Meaningful Use Info Meaningful Use Diagnoses (Choose all that apply): AMI AMI/Post PCI/Angioplasty Aspirin given w/in 24hrs of arrival?: Yes ASA at discharge?: Yes Antiplatelet Therapy at Discharge:: No Reason Antiplatelet Therapy not ordered:: Not indicated Statins at discharge?: Yes Ji/ARB at discharge?: Yes Beta Alcira at discharge?: Yes Done w/ Acute DE measure.: Yes Documented LVEF (%): 55 Discharge Plan Admission Admit Date/Time: 05/14/21 19:24 Primary Reason for Your Visit: non st elevation [place] Attending Provider: Glynn Robertson Primary Care Provider: [facility] Consulting Providers: Brannon Al Discharge Orders/Prescriptions Prescriptions: New carvedilol 25 mg Tablet 25 mg PO BIDCM Qty: 60 RF: 0 aspirin 81 mg Tablet,Delayed Release (Dr/Ec) 81 mg PO BREAKFAST Qty: 0 RF: 0 losartan 25 mg Tablet 25 mg PO DAILY Qty: 30 RF: 0 Continued levothyroxine 137 MCG tablet 137 mcg PO DAILY RF: 0 doxazosin 1 MG tablet 2 mg PO DAILY RF: 0 paroxetine HCl 20 MG tablet 20 mg PO QHS RF: 0 mirtazapine 15 MG tablet 30 mg PO QHS RF: 0 metformin 500 MG tablet 500 mg PO BIDCM RF: 0 Lantus U-100 Insulin 100 UNIT/ML solution 25 unit SQ QHS RF: 0 diphenhydramine HCl [Banophen] 25 MG capsule 25 mg PO QHS RF: 0 insulin aspart U-100 [Novolog Flexpen U-100 Insulin] 100 UNITS/ML insulin pen 9 units subcut TIDCM RF: 0 atorvastatin 80 mg Tablet 80 mg PO QHS RF: 0 levetiracetam 500 mg Tablet 500 mg PO BID RF: 0 amlodipine 10 mg Tablet 10 mg PO DAILY RF: 0 semaglutide 1 mg/dose (2 mg/1.5 mL) Pen Injector 1 mg SUBCUT FR RF: 0 Discontinued carvedilol [Coreg] 12.5 MG tablet 12.5 mg PO BIDCM RF: 0 Referrals / Follow Up: Brannon Al MD [STAFF PHYSICIAN] - See Referral Note (Office will call to schedule appointment, if you do not hear from their office within a week, call to schedule an appointment) [facility] [Primary Care Provider] - See Referral Note (Call and arrange for follow-up appointment) Disposition Disposition (needs filled in before D/C Order can be placed): Home, Self Care Charges/Coding Visit Charges Inpatient E&M: 85712 Disch Hosp
--- NOTE | 2021-05-16 11:34 | CASEMGMT ---
Pt/ decline need for any further resources at discharge. Govind BRENNER CM
== END 2021-05-16 13:20 | disposition home or self-care (01) | DRG 281 ==
LOC: ED 19:09 → PCU 19:43
PROVIDERS: Internal Medicine Cardiovascular Disease; Admitting Provider Family Medicine; Emergency Provider Emergency Medicine; Visit Provider Internal Medicine
DX: I21.4 Non-ST elevation (NSTEMI) myocardial infarction (principal); N17.9 Acute kidney failure, unspecified; I27.20 Pulmonary hypertension, unspecified; E11.9 Type 2 diabetes mellitus without complications; G40.909 Epilepsy, unspecified, not intractable, without status epilepticus; Z79.4 Long term (current) use of insulin; E03.9 Hypothyroidism, unspecified; I10 Essential (primary) hypertension; I25.10 Atherosclerotic heart disease of native coronary artery without angina pectoris; E78.5 Hyperlipidemia, unspecified; F41.9 Anxiety disorder, unspecified; F32.A Depression, unspecified; Z79.899 Other long term (current) drug therapy; Z79.890 Hormone replacement therapy; Z87.891 Personal history of nicotine dependence; Z95.1 Presence of aortocoronary bypass graft
CPT/HCPCS: 36415; 70450; 71045; 80048; 82962; 84443; 84484; 85025; 85027; 85610; 85730; 93005; 93306; 93459; 99152; 99153; 99285; J7030; Q9967; A4216; C1769; C1894

== ENCOUNTER 2023-12-23 10:28 | Emergency (ER) | payer OTHER, SELFPAY ==
[2023-12-23] VITALS (8 sets, daily range): BP systolic 160–184; BP diastolic 60–70; PULSE 71–75; RESP 18; TEMP 36.6–37.3; O2SAT 93–95; BMI 26.1
--- NOTE | 2023-12-23 10:48 | EKG12_ITS ---
Test Reason : DIFFICULTY BREATHING Blood Pressure : / mmHG Vent. Rate : 076 BPM Atrial Rate : 076 BPM P-R Int : 192 ms QRS Dur : 096 ms QT Int : 364 ms P-R-T Axes : 043 039 070 degrees QTc Int : 409 ms Normal sinus rhythm Normal ECG Confirmed by LUIS ALBERTO SANCHEZ MD ([id number]), production editor LITO BRANTLEY ([id number]) on 12/24/2023 2:12:32 PM Referred By: TB Confirmed By:LUIS ALBERTO SANCHEZ MD
[2023-12-23 11:04] LABS: Absolute Lymphocyte Count 0.54 X10^3/uL (0.83-4.51); Absolute Neutrophil Count 4.6 X10^3/uL (2.0-7.7); Basophil# 0.03 X10^3/uL; Basophil% 0.5 % (0-1); Eosinophil# 0.03 X10^3/uL; Eosinophils% 0.5 % (0-5); Hematocrit 39.6 % (40-54); Hemoglobin 12.7 g/dL (13.0-16.5); Lymphocyte # 0.54 X10^3/ul (0.83-4.51); Lymphocyte % 8.9 % (19-41); Mean Corp Hgb Conc 32.1 g/dL (32-36); Mean Corpuscular Hgb 31.6 pg (27.0-32.0); Mean Corpuscular Volume 98.5 fL (80-94); Mean Platelet Vol. 10.1 fl (6.2-12.0); Monocyte# 0.88 X10^3/uL; Monocyte% 14.5 % (0-10); NRBC Flagged by Analyzer 0 % (0-5); Neutrophil # 4.58 X10^3/uL (2.7-7.7); Neutrophil % 75.4 % (47-70); POSITIVE DIFFERENTIAL YES; Platelet Count 143 K/mm3 (150-450); RBC Distribution Width CV 11.9 % (11.6-14.6); RBC Distribution Width SD 43.1 fl (35.1-43.9); Red Blood Count 4.02 M/mm3 (4.6-6.2); White Blood Count 6.1 K/mm3 (4.4-11.0)
--- NOTE | 2023-12-23 11:18 | RAD_ITS ---
EXAM: XR CHEST, 2 VIEWS CLINICAL INDICATION: cough TECHNIQUE: Frontal and lateral views of the chest. COMPARISON: XR Chest dated 05/14/2021 FINDINGS: LUNGS AND PLEURAL SPACES: Normal. No consolidation or edema. No pneumothorax. No effusion. HEART: Normal heart size. MEDIASTINUM: No mediastinal or hilar mass. BONES/JOINTS: Sternotomy wires again noted. Old left-sided rib fractures. RAD/Chest PA and Lateral IMPRESSION: No acute cardiopulmonary abnormality. No interval change. Electronically Signed: Chase Warren MD at 11:47 EDT ,
[2023-12-23 11:23] LABS: ALB/GLOB Ratio 0.9 RATIO (0.9-2.4); AST(SGOT) 25 U/L (15-37); Alanine Aminotransfer ALT/SGPT 21 U/L (16-61); Albumin, Serum 3.4 g/dL (3.2-5.0); Alkaline Phosphatase 109 U/L (45-117); Anion Gap 6 (5-15); BUN 23 mg/dL (7-18); BUN/Creat Ratio 11.5 RATIO (10-20); Calcium,Total 9.1 mg/dL (8.5-10.1); Chloride 104 mmol/L (98-107); EST Glomerular Filtration Rate 35 mL/min (>60); Est Glom Filt Rate - Afr Amer 42 mL/min (>60); Globulin 3.7 g/dL (2.2-4.2); Glucose 279 mg/dL (74-106); Potassium 4.7 mmol/L (3.5-5.1); Protein, Total 7.1 g/dL (6.4-8.2); Sodium Level 137 mmol/L (136-145); Troponin-I HS 18 pg/mL (3.0-78.0)
--- NOTE | 2023-12-23 11:32 | EDS_ITS ---
HPI History of Present Illness Chief Complaint: Shortness of Breath Narrative Narrative: Patient is a 78-year-old male with past medical history of hypothyroidism, CVA, type 2 diabetes, BPH who presents to the emergency department chief complaint of cough, congestion fever and chills. Patient states that he has had a cough going on for significant time however he states that has been worsening recently. According to at bedside he had a fever of 103 at home via oral thermometer. States he has been taking Tylenol and ibuprofen. States that he has had a sore throat as well as a mild headache. Patient denies any recent contacts. He states that he followed up with the [place] [facility] and they gave him a cough medication which does not appear to help. They state that he was evaluated urgent care yesterday and they did nothing and told him to continue his current medication and sent him home [facility] Medical History Stenosis of right carotid artery Atherosclerotic heart disease of [place] coronary artery without angina pectoris Hypothyroidism Stroke/cerebrovascular accident Acute metabolic encephalopathy due to hypoglycemia GERD (gastroesophageal reflux disease) Intracranial bleeding Type 2 diabetes mellitus Benign prostate hyperplasia Home Medications ?Medication ?Instructions ?Recorded ?Last Taken ?Type doxazosin 1 mg tablet 2 mg PO DAILY prostate 03/24/17 05/14/21 History levothyroxine 137 mcg tablet 137 mcg PO DAILY thyroid 03/24/17 05/14/21 History mirtazapine 15 mg tablet 30 mg PO QHS sleep 03/24/17 05/13/21 History paroxetine HCl 20 mg tablet 20 mg PO QHS depression 03/24/17 05/13/21 History diphenhydramine HCl 25 mg capsule 25 mg PO QHS sleep 04/08/17 05/13/21 History (Banophen) insulin aspart U-100 100 unit/mL 9 units subcut TIDCM blood sugar 04/08/17 05/14/21 History (3 mL) subcutaneous pen (Novolog FlexPen U-100 Insulin aspart) insulin glargine 100 unit/mL 25 unit SQ QHS blood sugar 04/08/17 05/13/21 History subcutaneous solution (Lantus U-100 Insulin) metformin 500 mg tablet 500 mg PO BIDCM diabetes 04/08/17 05/14/21 History amlodipine 10 mg tablet 10 mg PO DAILY heart 05/14/21 05/14/21 History atorvastatin 80 mg tablet 80 mg PO QHS cholesterol med 05/14/21 05/13/21 History levetiracetam 500 mg tablet 500 mg PO BID Check with primary 05/14/21 05/14/21 History doctor semaglutide 1 mg/dose (2 mg/1.5 1 mg subcut FR sugar 05/14/21 05/09/21 History mL) subcutaneous pen injector aspirin 81 mg tablet,delayed 81 mg PO BREAKFAST #0 tabs 05/16/21 Unknown Rx release carvedilol 25 mg tablet 25 mg PO BIDCM #60 tabs 05/16/21 Unknown Rx losartan 25 mg tablet 25 mg PO DAILY #30 tabs 05/16/21 Unknown Rx Allergy/AdvReac Type Severity Reaction Status Date / Time No Known Allergies Allergy Verified 12/23/23 10:34 Family History Other Heart disease Surgical History History of right-sided carotid endarterectomy H/O coronary artery bypass surgery History of left heart catheterization (05/15/21) Social History Smoking Status: Former smoker ROS ROS ED ROS Narrative Constitutional: Complains of fever and chills noted above denies any lightheadedness or dizziness Eyes: Denies change in vision double vision blurry vision Cardiovascular: Denies chest pain palpitations Respiratory: Complains of coughing as noted above denies wheezing Abdomen: Denies abdominal pain nausea vomit diarrhea : Denies any painful urination, hematuria and polyuria Neurological: Denies any numbness, discomfort Musculoskeletal: Denies back pain Skin: Denies rashes or lesions EXAM Physical Exam Narrative Exam Narrative: General: Patient lying in bed rest comfortably did not appear to be in acute distress Head: Atraumatic, normocephalic Eyes: PERRL bilateral, EOMI bilateral, no conjunctival injection Neck: Soft, supple and trachea Cardiovascular:Regular rate and rhythm no murmurs gallops rubs noted Respiratory: Clear to auscultation bilaterally no rales rhonchi or wheezes noted Abdomen: Soft, nondistended, nontender to palpation, bowel sounds present x 4 Extremities: +4/5 strength noted in the bilateral upper and lower extremities, no pedal edema no exam Neurological: Patient following commands knew that he was at [facility] years 2023 Skin: Warm, dry, intact Const Vital Signs: 12/23/23 10:29 12/23/23 11:29 12/23/23 11:33 Temperature 98 F 98 F Temperature Source Oral Oral Pulse Rate 75 72 72 Respiratory Rate 18 18 18 Blood Pressure 184/70 H 160/60 H 160/60 H Blood Pressure Mean 108 93 93 Pulse Ox 93 94 94 Oxygen Delivery Method Room Air Room Air 12/23/23 11:42 12/23/23 12:00 12/23/23 12:00 Temperature 98 F Temperature Source Oral Pulse Rate 72 71 Respiratory Rate 18 18 Blood Pressure 162/60 H 162/60 H Blood Pressure Mean 94 94 Pulse Ox 94 94 Oxygen Delivery Method Room Air Room Air MDM MDM MDM Narrative Medical decision making narrative: Patient is a 78-year-old male who presents to the emergency department with a chief complaint of cough, congestion, sore throat. Patient will have a workup performed here on the differential diagnose includes but not limited to COVID, flu, strep throat, pneumonia, ACS. Once workup is obtained reviewed he will be reevaluated. Patient CBC reviewed and showed no evidence leukocytosis white blood count normal 6.1, Hemofil 12.7, platelet count was 9143, patient sodium normal 137, potassium was normal at 4.7, creatinine was elevated to baseline was around 1.21 patient states that he has had some decrease in his fluid intake recently but states that he is still drinking. Patient's AST and ALT are 25 and 21 respectively, troponin was normal at 18. Patient's EKG reviewed by myself which showed normal sinus rhythm with a rate of 76 beats per minutes. Patient's chest x-ray was reviewed by myself and by radiology and showed no acute cardiopulmonary processes no interval change. Patient was ambulated here in the emergency department and he had no hypoxia heart rate was normal. Patient would like to go home at this point time. Patient was advised to increase his water intake. He is encouraged to have his kidney function checked again later in the week. He is advised to continue supportive care with Tylenol ibuprofen for fever control. He and his signi ficant other are agreeable with this plan. All question concerns answered he is discharged home in stable condition. Lab Data Labs: Laboratory Results - last 24 hr 12/23/23 10:55 WBC 6.1 RBC 4.02 L Hgb 12.7 L Hct 39.6 L MCV 98.5 H MCH 31.6 MCHC 32.1 RDW Std Deviation 43.1 RDW Coeff of Cy 11.9 Plt Count 143 L MPV 10.1 Immature Gran % (Auto) 0.200 Neut % (Auto) 75.4 H Lymph % (Auto) 8.9 L [place] % (Auto) 14.5 H Eos % (Auto) 0.5 Baso % (Auto) 0.5 Absolute Neuts (auto) 4.6 Absolute Lymphs (auto) 0.54 L Nucleated RBC % 0 Sodium 137 Potassium 4.7 Chloride 104 Carbon Dioxide 27.0 Anion Gap 6 BUN 23 H Creatinine 2.00 H Est GFR (MDRD) Af Amer 42 L Est GFR (MDRD) Non-Af 35 L BUN/Creatinine Ratio 11.5 Glucose 279 H Calcium 9.1 Total Bilirubin 0.60 AST 25 ALT 21 Alkaline Phosphatase 109 Troponin I High Sens 18 Total Protein 7.1 Albumin 3.4 Globulin 3.7 Albumin/Globulin Ratio 0.9 Radiography Diagnostic Testing: Clinical Impression(s) from Imaging Studies Chest X-Ray 12/23/23 11:18 IMPRESSION: No acute cardiopulmonary abnormality. No interval change. Electronically Signed: Chase Warren MD at 11:47 EDT , Discharge Plan Triage Chief Complaint: Shortness of Breath ED Provider: Rasheed Moore Dx/Rx/DC Orders Clinical Impression: COVID-19 Prescriptions: No Action levothyroxine 137 MCG tablet 137 mcg PO DAILY doxazosin 1 MG tablet 2 mg PO DAILY paroxetine HCl 20 MG tablet 20 mg PO QHS mirtazapine 15 MG tablet 30 mg PO QHS metformin 500 MG tablet 500 mg PO BIDCM Lantus U-100 Insulin 100 UNIT/ML solution 25 unit SQ QHS diphenhydramine HCl [Banophen] 25 MG capsule 25 mg PO QHS insulin aspart U-100 [Novolog FlexPen U-100 Insulin] 100 UNITS/ML insulin pen 9 units subcut TIDCM 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 atorvastatin 80 mg Tablet 80 mg PO QHS levetiracetam 500 mg Tablet 500 mg PO BID amlodipine 10 mg Tablet 10 mg PO DAILY semaglutide 1 mg/dose (2 mg/1.5 mL) Pen Injector 1 mg SUBCUT FR carvedilol 25 mg Tablet 25 mg PO BIDCM Qty: 60 0RF aspirin 81 mg Tablet,Delayed Release (Dr/Ec) 81 mg PO BREAKFAST Qty: 0 0RF losartan 25 mg Tablet 25 mg PO DAILY Qty: 30 0RF [facility] Care [facility] [facility] Referrals[place] [facility] [Primary Care Provider] - Activity Restrictions/Additional Instructions: Follow with your primary care physician by the end of the week and have your kidney function checked again. Continue to hydrate orally with plenty of water. Return with worsening symptoms or other concerns. Take Tylenol and ibuprofen for your fever control. Print Language: Dominican Disposition Disposition: Home, Self Care
== END 2023-12-23 13:18 | disposition home or self-care (01) ==
PROVIDERS: Emergency Provider Emergency Medicine; Visit Provider Emergency Medicine
DX: U07.1 COVID-19 (principal); E11.9 Type 2 diabetes mellitus without complications; I25.10 Atherosclerotic heart disease of native coronary artery without angina pectoris; Z86.73 Personal history of transient ischemic attack (TIA), and cerebral infarction without residual deficits; Z87.891 Personal history of nicotine dependence; Z95.1 Presence of aortocoronary bypass graft
CPT/HCPCS: 71046; 80053; 84484; 85025; 87631; 87651; 93005; 99283; A4216

== ENCOUNTER 2024-07-10 10:58 | Emergency (ER) | payer OTHER, SELFPAY ==
[2024-07-10 10:59] VITALS: BP 150/69; PULSE 71; RESP 16; TEMP 36.6; O2SAT 97; BMI 24.2
--- NOTE | 2024-07-10 11:42 | CT_ITS ---
PROCEDURE: CHEST WITHOUT CONTRAST 07/10/2024 REASON FOR EXAM: LEFT RIB INJURY TECHNIQUE: Chest CT without contrast. Coronal and Sagittal reconstruction series were provided. One or more dose reduction techniques were used (e.g., Automated exposure control, adjustment of the mA and/or kV according to patient size, use of iterative reconstruction technique RADIATION DOSE SUMMARY: CTDlvol: 16.55 mGy DLP: 794.31 mGycm COMPARISON: None FINDINGS: Note that evaluation of the vasculature, jorge a, and soft tissues is limited in the absence of IV contrast. Heart/pericardium: Severe multivessel coronary atherosclerosis and/or stents post sternotomy. Mild aortic and trace mitral annular calcification.. Aorta: Moderate to advanced atherosclerosis. Pulmonary arteries: Normal in caliber. Lymph nodes: Chronic granulomatous disease.. Lungs/pleura: Trace bilateral pleural effusions. Mild dependent atelectasis/scarring, greater on the LEFT, with where there are associated calcifications. Additional granulomas also present. No pneumothorax. Small noncalcified nodules up to 5 mm in the RIGHT lower lobe (series 10, image 83). Airways: Unremarkable. Chest wall: Unremarkable. Upper abdomen: Hepatic and splenic granulomas. Cholelithiasis. Nonspecific symmetric perinephric stranding.. Musculoskeletal: Demineralization. Multilevel spondylosis. Exaggerated normal thoracic kyphosis. Sternotomy as above. RIGHT rotator cuff repair. Degenerative changes of the bilateral shoulders. Nondisplaced and minimally displaced segmental fractures of LEFT ribs 3-6 and questionably also 7 anteriorly and posteriorly. Fractures of LEFT posterior ribs 9-11 and questionably also 8. Additional old LEFT rib fractures. Mildly comminuted nondisplaced and minimally/mildly displaced fractures of the inferior LEFT scapular body. Included upper extremities otherwise not well evaluated due to partial visualization, oblique positioning, and large [id number]. CT/Chest without Contrast IMPRESSION: 1. Nondisplaced and mildly/minimally displaced LEFT-sided rib fractures involvi ng ribs as detailed. Notably, fractures of ribs 3-6 and questionably 7 are segmental. No pneumothorax. 2. Mildly comminuted nondisplaced and minimally/mildly displaced fractures of t he inferior LEFT scapular body. 3. Trace bilateral pleural effusions. 4. Sub 6 mm pulmonary nodules, statistically benign and requiring no specific f ollow-up in a low risk patient. Otherwise, recommend follow-up CT chest in one year per the Fleischner society recommendat ions for pulmonary nodule follow-up, presuming no history of malignancy or known immunosuppression. 5. Additional description as above. Reading Location: [id number]
--- NOTE | 2024-07-10 11:42 | CT_ITS ---
PROCEDURE: BRAIN/HEAD WITHOUT CONTRAST 07/10/2024 REASON FOR EXAM: INJURY TECHNIQUE: Head CT without intravenous contrast. Coronal and Sagittal reconstruction series were provided. One or more dose reduction techniques were used (e.g., Automated exposure control, adjustment of the mA and/or kV according to patient size, use of iterative reconstruction technique. RADIATION DOSE SUMMARY: CTDlvol: Information not provided DLP: 849.54 MGycm COMPARISON: None FINDINGS: Cerebrum: No visible parenchymal hemorrhage, mass, or definite acute territorial infarct. Remote appearing RIGHT frontoparietal infarct. Small remote appearing RIGHT temporal infarct. Mild/moderate diffuse cerebral volume loss. Suspect mild background chronic microvascular ischemic white matter changes. Cerebellum/brainstem: Grossly unremarkable. Note limitation due to streak/beam hardening artifact related to the skull base. Ventricles/extra-axial spaces: Questionable tiny foci of apparent extra-axial hyperdensity versus artifact overlying the RIGHT frontal lobe. Lateral and 3rd ventriculomegaly, slightly disproportionate to the degree of volume loss with slight upward bowing of the corpus callosum. Paranasal sinuses/mastoid air cells: Unremarkable. Scalp/calvarium: LEFT parieto-occipital scalp contusion. Nearby tiny foci of gas suggesting associated laceration. Other: Intracranial atherosclerosis. Bilateral cataract surgery. CT/Brain/Head without Contrast IMPRESSION: 1. Questionable trace extra-axial hemorrhage versus artifact overlying the RIGH T frontal lobe. Recommend short interval follow-up to evaluate stability/persistence. 2. LEFT parieto-occipital scalp contusion and suspected laceration. 3. Findings which are nonspecific but may be seen in the setting of normal pres sure/communicating hydrocephalus given the appropriate clinical context. 4. Additional description as above. Reading Location: [id number]
--- NOTE | 2024-07-10 11:42 | CT_ITS ---
PROCEDURE: SPINE CERVICAL WITHOUT CONTRAS 07/10/2024 REASON FOR EXAM: INJURY TECHNIQUE: Cervical spine CT without contrast. Coronal and Sagittal reconstruction series were provided. One or more dose reduction techniques were used (e.g., Automated exposure control, adjustment of the mA and/or kV according to patient size, use of iterative reconstruction technique RADIATION DOSE SUMMARY: DLP: 387.53 mGycm COMPARISON: none FINDINGS: Visualized skull base and craniocervical junction demonstrate no evidence of fracture or dislocation. There is no evidence of cervical spine fracture. Alignment is normal. No soft tissue abnormality is seen. Disc spaces are preserved. Facets are intact. Visualized portions of the lung apices demonstrate no evidence of pneumothorax. There is a 0.6 cm solid pulmonary nodule in the left lung apex, image 118/139, with multiple smaller nodules noted. Vascular calcifications are noted. C2-C3: There is no significant disc protrusion. There is no lateral recess or foraminal stenosis. There is no central canal stenosis. C3-C4: There is no significant disc protrusion. There is no lateral recess or foraminal stenosis. There is no central canal stenosis. C4-C5: There is no significant disc protrusion. There is no lateral recess or foraminal stenosis. There is no central canal stenosis. C5-C6: There is mild central disc and osteophyte protrusion. There is mild left lateral recess and mild left foraminal stenosis. There is no central canal stenosis. C6-C7: There is no significant disc protrusion. There is no lateral recess or foraminal stenosis. There is no central canal stenosis. C7-T1: There is no significant disc protrusion. There is no lateral recess or foraminal stenosis. There is no central canal stenosis. CT/Spine Cervical without Contras IMPRESSION: There is degenerative disc disease at C5-6. There is no visible acute traumati c injury. There is a 0.6 cm solid pulmonary nodule in the left lung apex, image 118/139, with multiple smaller nodules noted. Chest CT is pending. Reading [facility]
[2024-07-10 12:02] VITALS: BP 148/68; PULSE 73; RESP 18; O2SAT 96
[2024-07-10] MEDS: Acetaminophen 500 MG Tablet 1000 MG PO (12:06)
[2024-07-10] MEDS: Diphth,Pertuss(Acell),Tet Vac 0.5 ML Vial IM (12:06)
[2024-07-10] MEDS: Lidocaine 1% (20 ml mdv) 20 ML Vial INFILT (12:24)
--- NOTE | 2024-07-10 12:30 | RAD_ITS ---
PROCEDURE: SHOULDER MIN 2 VIEWS 07/10/2024 REASON FOR EXAM: INJURY TECHNIQUE: AP, scapular Y, and axillary views of the LEFT shoulder were obtained. COMPARISON: CT of same date FINDINGS: Fracture/dislocation: Mildly comminuted nondisplaced and minimally/mildly displaced fractures of the inferior scapular body. Mild widening of the AC joint. Old LEFT rib fractures. Acute LEFT rib fractures better seen on CT. Joint space(s): Moderate to advanced LEFT glenohumeral joint space loss. Soft tissues: Unremarkable. Foreign bodies: None visible. Bone mineralization: Demineralization. Other: None. RAD/Shoulder min 2 Views IMPRESSION: 1. Mildly comminuted nondisplaced and minimally/mildly displaced fractures of t he inferior scapular body. 2. Mild widening of the AC joint could conceivably reflect ligamentous injury. 3. Acute LEFT rib fractures better seen on CT. 4. Additional description as above. Reading Location: [id number]
[2024-07-10 13:00] VITALS: BP 146/68; PULSE 72; RESP 18; O2SAT 95
[2024-07-10] MEDS: Morphine 4 MG/ML Syringe IV (13:32)
[2024-07-10] MEDS: Ondansetron 4 MG/2 ML Vial IV (13:32)
[2024-07-10 13:47] LABS: Absolute Neutrophil Count 6.9 X10^3/uL (2.0-7.7); Basophil# 0.04 X10^3/uL; Basophil% 0.4 % (0-1); Eosinophil# 0.15 X10^3/uL; Eosinophils% 1.7 % (0-5); Hematocrit 38.6 % (40-54); Hemoglobin 12.8 g/dL (13.0-16.5); Lymphocyte % 11.1 % (19-41); Mean Corp Hgb Conc 33.2 g/dL (32-36); Mean Corpuscular Hgb 31.8 pg (27.0-32.0); Mean Platelet Vol. 10.4 fl (6.2-12.0); Monocyte# 0.82 X10^3/uL; Monocyte% 9.1 % (0-10); NRBC Flagged by Analyzer 0 % (0-5); Neutrophil # 6.89 X10^3/uL (2.7-7.7); Neutrophil % 76.7 % (47-70); Platelet Count 155 K/mm3 (150-450); RBC Distribution Width SD 41.7 fl (35.1-43.9); Red Blood Count 4.02 M/mm3 (4.6-6.2)
[2024-07-10 14:00] VITALS: BP 142/78; PULSE 78; RESP 14; O2SAT 98
[2024-07-10 14:10] LABS: ALB/GLOB Ratio 1.4 RATIO (0.9-2.4); AST(SGOT) 30 U/L (<=37); Alanine Aminotransfer ALT/SGPT 21 U/L (<=46); Albumin, Serum 3.9 g/dL (3.4-4.8); Alkaline Phosphatase 129 U/L (40-129); Anion Gap 11 (5-15); BUN 22 mg/dL (4-19); BUN/Creat Ratio 14.6 RATIO (10-20); Calcium,Total 9.4 mg/dL (7.6-11.0); Carbon Dioxide 24.7 mmol/L (21.0-32.0); Chloride 102 mmol/L (98-108); Creatinine, Serum 1.51 mg/dL (0.70-1.20); EST Glomerular Filtration Rate 47 (>60); Estimated Creatinine Clearance 40.97 ml/min (50-250); Globulin 2.7 g/dL (2.2-4.2); Glucose 210 mg/dL (70-99); Potassium 5.2 mmol/L (3.3-5.1); Protein, Total 6.6 g/dL (5.9-8.4); Sodium Level 138 mmol/L (133-145); Total Bilirubin 0.55 mg/dL (0.00-1.30)
--- NOTE | 2024-07-10 14:25 | ED.VIS.FALL ---
HPI HPI - Fall History of Present Illness Chief Complaint: Fall Informant: patient and family Narrative Narrative: 78-year-old male was out leaf blowing his deck when he went to go down the stairs and fell. Family notes the leaf blower was in the railing of the deck stairs. He thinks that his leaf blower got stuck in the railing and then he fell down. He notes a laceration to the back of his head as well as pain with any movement of the left shoulder. He also notes pain in his ribs. Family questions if he had a loss of consciousness. He denies any abdominal pain. He denies any leg symptoms. 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 Hypothyroidism Stroke/cerebrovascular accident Acute metabolic encephalopathy due to hypoglycemia GERD (gastroesophageal reflux disease) Intracranial bleeding Type 2 diabetes mellitus Benign prostate hyperplasia Home Medications ?Medication ?Instructions ?Recorded ?Last Taken ?Type levothyroxine 137 mcg tablet 68.5 mcg PO DAILY thyroid 03/24/17 07/10/24 History diphenhydramine HCl 25 mg capsule 25 mg PO QHS sleep 04/08/17 07/09/24 History (Banophen) insulin aspart U-100 100 unit/mL 14 units subcut TIDCM blood sugar 04/08/17 07/10/24 History (3 mL) subcutaneous pen (Novolog FlexPen U-100 Insulin aspart) insulin glargine 100 unit/mL 17 unit SQ QHS blood sugar 04/08/17 07/09/24 History subcutaneous solution (Lantus U-100 Insulin) metformin 500 mg tablet 500 mg PO BIDCM diabetes 04/08/17 07/10/24 History amlodipine 10 mg tablet 5 mg PO DAILY heart 05/14/21 07/10/24 History atorvastatin 80 mg tablet 80 mg PO QHS cholesterol med 05/14/21 07/09/24 History levetiracetam 500 mg tablet 500 mg PO BID Check with primary 05/14/21 07/10/24 History doctor semaglutide 1 mg/dose (2 mg/1.5 1.5 mg subcut FR sugar 03/02/22 04/25/25 History mL) subcutaneous pen injector aspirin 81 mg tablet,delayed 81 mg PO BREAKFAST #0 tabs 05/16/21 07/10/24 Rx release calcium gluconate 60 mg calcium 30 mg PO DAILY 07/10/24 07/10/24 History (650 mg) tablet carvedilol 25 mg tablet 12.5 mg PO BIDCM 07/10/24 07/10/24 History doxazosin 2 mg tablet 2 mg PO DAILY prostate 07/10/24 07/10/24 History hydrochlorothiazide 25 mg tablet 12.5 mg PO DAILY 07/10/24 07/10/24 History mirtazapine 30 mg tablet 30 mg PO QHS 07/10/24 07/09/24 History paroxetine HCl 40 mg tablet 20 mg PO QHS 07/10/24 07/09/24 History Allergy/AdvReac Type Severity Reaction Status Date / Time No Known Allergies Allergy Verified 12/23/23 10:34 Family History Other Heart disease Surgical History History of right-sided carotid endarterectomy H/O coronary artery bypass surgery History of left heart catheterization (05/15/21) Social History Smoking Status: Former smoker ROS ROS ED Constitutional Constitutional ED: Denies chills, fever(s) or weight loss Eyes Eyes: Denies change in vision or diplopia ENT ENT ED: Denies ear pain, rhinorrhea or sore throat Cardiovascular Cardiovascular: Denies chest pain, orthopnea, palpitations or racing heartbeat Respiratory/Chest Respiratory/Chest: Denies cough, dyspnea or orthopnea Gastrointestinal Gastrointestinal: Denies abdominal pain, diarrhea, nausea or vomiting Genitourinary Genitourinary ED: Denies dysuria, hematuria or urinary frequency Musculoskeletal Musculoskeletal: Reports other Details: See history of present illness ; Denies arthralgias or myalgias Integumentary Reports other Details: Scalp laceration ; Denies abscess or rash Neurologic Neurologic: Reports headache(s) and other Details: Questionable loss of consciousness ; Denies weakness Psychiatric Psychiatric: Denies anxiety, depression, suicidal ideation or suicidal thoughts Endocrine Endocrinology: Denies polydipsia, polyphagia or polyuria Allergic/Immunologic Allergic/Immunologic ED: Denies mouth swelling, tongue swelling or urticaria EXAM Physical Exam Const Vital Signs: 07/10/24 10:59 07/10/24 12:02 07/10/24 12:41 Temperature 97.8 F Temperature Source Oral Pulse Rate 71 73 Respiratory Rate 16 18 Respiratory Effort Normal Blood Pressure 150/69 H 148/68 H Blood Pressure Mean 96 94 Pulse Ox 97 96 Oxygen Delivery Method Room Air 07/10/24 13:00 Temperature Temperature Source Pulse Rate 72 Respiratory Rate 18 Respiratory Effort Blood Pressure 146/68 H Blood Pressure Mean 94 Pulse Ox 95 Oxygen Delivery Method Positive well nourished and well developed General Appearance ED: well developed and NAD HEENT Reports normocephalic and moist mucous membranes HEENT Narrative: There is a 3 cm linear scalp laceration to the high occiput on the left. No palpable bony depression. Eyes PERRL and EOMs intact bilaterally Neck full ROM, no lymphadenopathy, supple and no JVD General: Negative for tenderness Chest Wall Chest Narrative: Tender to palpation along the lateral posterior ribs on the left. No subcutaneous emphysema is felt. Resp normal respiratory effort and clear to auscultation bilaterally Cardio regular rate, regular rhythm and no murmurs GI normal to inspection, nondistended, normoactive bowel sounds and non-tender Palpation: soft Back/Spine no CVA tenderness Extremity Extremity Narrative: Very limited range of motion of the left shoulder. There is tenderness along the body of the scapula. There are superficial skin tears to the dorsum of the right hand (combined 2 cm) and a single skin tear to the right elbow (half centimeter) General Extremety ED: Negative for edema General Extremity: Negative for edema Neuro oriented x3 and CN's II-XII intact bilaterally Sensorium / Orientation: alert Motor Exam: strength 5/5 throughout Psych mental status grossly normal Mood & Affect: Negative for depressed or tearful Skin no rashes or lesions noted MDM MDM MDM Narrative Medical decision making narrative: Differential diagnosis includes but not limited to scapular fracture rib fractures pulmonary contusion pneumothorax shoulder fracture cervical spine fracture intracranial hemorrhage concussion laceration skin tears CT of the brain and cervical spine does not demonstrate an obvious intracranial hemorrhage or fracture. Please see radiologist read for full details. CT imaging of the chest was obtained which demonstrated a comminuted mildly displaced fracture of the scapula on the left. There are also suspected fractures of ribs 3 through 11 on the left. No large hemothorax pneumothorax or pulmonary contusion is seen. Please see radiology read for full details. My independent interpretation of the plain films of the left shoulder is acute fracture of the scapula. Patient received pain medication. The laceration was locally anesthetized using 1% lidocaine washed with Shur-Clens irrigated explored and closed using 3 simple erupted 3-0 Ethilon sutures. Local wound care performed by nursing to the skin tears. Tetanus was updated with Adel[facility]. I spoke with the patient and his family plan of care is to transfer him to trauma center. He has been accepted to the emergency department at [facility]. History & Record Review Discussion w/independent historian: Patient and Family Additional record(s) reviewed:: Prior inpatient record, Prior ED visit and Prior labs Lab Data Attestation: I reviewed the patient's lab results. Labs: Laboratory Results - last 24 hr 07/10/24 13:30 WBC 9.0 RBC 4.02 L Hgb 12.8 L Hct 38.6 L MCV 96.0 H MCH 31.8 MCHC 33.2 RDW Std Deviation 41.7 RDW Coeff of Cy 12.0 Plt Count 155 MPV 10.4 Immature Gran % (Auto) 1.000 H Neut % (Auto) 76.7 H Lymph % (Auto) 11.1 L [place] % (Auto) 9.1 Eos % (Auto) 1.7 Baso % (Auto) 0.4 Absolute Neuts (auto) 6.9 Absolute Lymphs (auto) 1.00 Nucleated RBC % 0 Sodium 138 Potassium 5.2 H Chloride 102 Carbon Dioxide 24.7 Anion Gap 11 BUN 22 H Creatinine 1.51 H Estim Creat Clear Calc 40.97 L Est GFR (MDRD) Non-Af 47 L BUN/Creatinine Ratio 14.6 Glucose 210 H Calcium 9.4 Total Bilirubin 0.55 AST 30 ALT 21 Alkaline Phosphatase 129 Total Protein 6.6 Albumin 3.9 Globulin 2.7 Albumin/Globulin Ratio 1.4 Radiography Diagnostic Testing: Clinical Impression(s) from Imaging Studies Brain CT 07/10/24 11:42 IMPRESSION: 1. Questionable trace extra-axial hemorrhage versus artifact overlying the RIGHT frontal lobe. Recommend short interval follow-up to evaluate stability/persistence. 2. LEFT parieto-occipital scalp contusion and suspected laceration. 3. Findings which are nonspecific but may be seen in the setting of normal pressure/communicating hydrocephalus given the appropriate clinical context. 4. Additional description as above. Reading Location: [facility] Cervical Spine CT 07/10/24 11:42 IMPRESSION: There is degenerative disc disease at C5-6. There is no visible acute traumatic injury. There is a 0.6 cm solid pulmonary nodule in the left lung apex, image 118/139, with multiple smaller nodules noted. Chest CT is pending. Reading Location[facility] Chest CT 07/10/24 11:42 IMPRESSION: 1. Nondisplaced and mildly/minimally displaced LEFT-sided rib fractures involving ribs as detailed. Notably, fractures of ribs 3-6 and questionably 7 are segmental. No pneumothorax. 2. Mildly comminuted nondisplaced and minimally/mildly displaced fractures of the inferior LEFT scapular body. 3. Trace bilateral pleural effusions. 4. Sub 6 mm pulmonary nodules, statistically benign and requiring no specific follow-up in a low risk patient. Otherwise, recommend follow-up CT chest in one year per the Fleischner society recommendations for pulmonary nodule follow-up, presuming no history of malignancy or known immunosuppression. 5. Additional description as above. Reading Location: [facility] Shoulder X-Ray 07/10/24 12:30 IMPRESSION: 1. Mildly comminuted nondisplaced and minimally/mildly displaced fractures of the inferior scapular body. 2. Mild widening of the AC joint could conceivably reflect ligamentous injury. 3. Acute LEFT rib fractures better seen on CT. 4. Additional description as above. 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, Discussing w/Consultants, Arranging Admission or Transfer and Performing Direct Patient Care at Bedside Discharge Plan Triage Chief Complaint: Fall ED Provider: Danny Ferrer Dx/Rx/DC Orders Prescriptions: No Action levothyroxine 137 MCG tablet 68.5 mcg PO DAILY metformin 500 MG tablet 500 mg PO BIDCM insulin glargine [Lantus U-100 Insulin] 100 UNIT/ML solution 17 unit SQ QHS diphenhydramine HCl [Banophen] 25 MG capsule 25 mg PO QHS insulin aspart U-100 [Novolog FlexPen U-100 Insulin] 100 UNITS/ML insulin pen 14 units subcut TIDCM 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 atorvastatin 80 mg Tablet 80 mg PO QHS levetiracetam 500 mg Tablet 500 mg PO BID amlodipine 10 mg Tablet 5 mg PO DAILY semaglutide 1 mg/dose (2 mg/1.5 mL) Pen Injector 1.5 mg SUBCUT FR aspirin 81 mg Tablet,Delayed Release (Dr/Ec) 81 mg PO BREAKFAST Qty: 0 0RF doxazosin 2 mg tablet 2 mg PO DAILY mirtazapine 30 mg tablet 30 mg PO QHS hydrochlorothiazide 25 mg tablet 12.5 mg PO DAILY paroxetine HCl 40 mg tablet 20 mg PO QHS calcium gluconate 60 mg calcium (650 mg) tablet 30 mg PO DAILY carvedilol 25 mg Tablet 12.5 mg PO BIDCM [facility] Provider[facility] Referrals: [facility] [Primary Care Provider] - Print Language: Bulgarian
[2024-07-10 14:28] LABS: Prothrombin Time (Protime)PT. 13.8 SECONDS (11.7-14.9)
[2024-07-10 14:29] LABS: Partial Thromboplast Time 31.9 Seconds (24.1-36.2)
[2024-07-10] MEDS: Morphine 4 MG/ML Syringe IM (14:56)
[2024-07-10 15:00] VITALS: BP 141/71; PULSE 73; RESP 18; TEMP 36.9; O2SAT 99
== END 2024-07-10 15:08 | disposition short-term general hospital (02) ==
LOC: ED 11:50
PROVIDERS: Emergency Provider Emergency Medicine; Visit Provider Emergency Medicine
DX: S01.01XA Laceration without foreign body of scalp, initial encounter (principal); E11.9 Type 2 diabetes mellitus without complications; Z79.4 Long term (current) use of insulin; I25.10 Atherosclerotic heart disease of native coronary artery without angina pectoris; Z87.891 Personal history of nicotine dependence; Z79.82 Long term (current) use of aspirin; W10.9XXA Fall (on) (from) unspecified stairs and steps, initial encounter; Y92.89 Other specified places as the place of occurrence of the external cause; Y93.89 Activity, other specified; Z86.73 Personal history of transient ischemic attack (TIA), and cerebral infarction without residual deficits; E03.9 Hypothyroidism, unspecified; Z79.890 Hormone replacement therapy; Z79.84 Long term (current) use of oral hypoglycemic drugs; Z79.85 Long-term (current) use of injectable non-insulin antidiabetic drugs; Z79.899 Other long term (current) drug therapy; S42.102A Fracture of unspecified part of scapula, left shoulder, initial encounter for closed fracture; Z23 Encounter for immunization
CPT/HCPCS: 12002; 70450; 71250; 72125; 73030; 80053; 85025; 85610; 85730; 90715; 96372; 96374; 96375; 99285; A4216; J2405

== ENCOUNTER 2024-07-19 16:42 | Inpatient (IN) | payer MEDICARE, SELFPAY ==
[2024-07-19 17:54] VITALS: BP 164/83; PULSE 56; RESP 17; TEMP 36.6; O2SAT 97
[2024-07-19 18:00] VITALS: BP 164/83; PULSE 56; RESP 17; TEMP 36.6; O2SAT 97
[2024-07-19 18:19] VITALS: BMI 22.1
[2024-07-19 18:23] LABS: Mucous, Urine 0 SEEN /hpf (<or=2+); Red Blood Cells-Urine 0 SEEN /hpf (0-5); Squamous Epithelial Cells - UA 0 SEEN /hpf (0-5)
[2024-07-19 18:25] LABS: Color, Urine Yellow (Yellow); Glucose, Dipstick 1000 mg/dl (Normal); Ketone-Dipstick Negative (Negative); Leukocyte Esterase-Dipstick Negative /ul (Negative); Nitrite-Dipstick Negative (Negative); Occult Blood-Urine Negative /ul (Negative); Protein-Dipstick Negative (Negative); Urine Bilirubin Dipstick Negative (Negative); Urine Clarity Clear (Clear); Urine Urobilinogen Normal (Normal)
[2024-07-19 18:34] LABS: Bacteria 3+ /hpf (None Seen)
[2024-07-19 18:35] LABS: White Blood Cells 0-5 SEEN /hpf (0-5)
[2024-07-19 19:45] VITALS: PULSE 79; RESP 16; O2SAT 93
[2024-07-19] MEDS: Ipratropium/Albuterol Sulfate 3 ML AMPUL.NEB INHALATION (19:45)
[2024-07-19 20:55] VITALS: BP 151/58; PULSE 83
[2024-07-19] MEDS: Acetaminophen 500 MG Tablet 1000 MG PO (20:58)
[2024-07-19] MEDS: Pramipexole Di-HCl 0.125 MG Tablet PO (20:59)
[2024-07-19] MEDS: Gabapentin 100 MG Capsule PO (20:59)
[2024-07-19] MEDS: levETIRAcetam 500 MG Tablet PO (20:59)
[2024-07-19] MEDS: Atorvastatin Calcium 80 MG Tablet PO (20:59)
[2024-07-19] MEDS: Senna/Docusate Sodium 1 Tablet 2 TABLET PO (20:59)
[2024-07-19] MEDS: Niacin SA 500 MG Tablet PO (20:59)
[2024-07-19] MEDS: Mirtazapine 30 MG Tablet PO (21:00)
[2024-07-19] MEDS: Bisacodyl 10 MG Suppository RC (21:01)
[2024-07-19] MEDS: Insulin Glargine-YFGN 100 UNIT/ML Pen 25 UNIT SC (21:24)
[2024-07-19 21:46] LABS: Bedside Glucose 219 mg/dL (74-106)
[2024-07-20] VITALS (8 sets, daily range): BP systolic 142–165; BP diastolic 60–68; PULSE 80–93; RESP 16–18; TEMP 36.2–36.6; O2SAT 93–96
[2024-07-20] MEDS: Acetaminophen 500 MG Tablet 1000 MG PO ×3 (04:39→20:55)
[2024-07-20] MEDS: Levothyroxine 75 MCG Tablet PO (04:40)
[2024-07-20 05:44] LABS: Absolute Lymphocyte Count 0.98 X10^3/uL (0.83-4.51); Absolute Neutrophil Count 6.7 X10^3/uL (2.0-7.7); Basophil# 0.04 X10^3/uL; Basophil% 0.5 % (0-1); Eosinophil# 0.11 X10^3/uL; Eosinophils% 1.2 % (0-5); Lymphocyte # 0.98 X10^3/ul (0.83-4.51); Mean Corp Hgb Conc 33.3 g/dL (32-36); Mean Corpuscular Volume 95.9 fL (80-94); Mean Platelet Vol. 9.9 fl (6.2-12.0); Monocyte# 1.04 X10^3/uL; Monocyte% 11.7 % (0-10); NRBC Flagged by Analyzer 0 % (0-5); Neutrophil # 6.67 X10^3/uL (2.7-7.7); Neutrophil % 75.1 % (47-70); Platelet Count 211 K/mm3 (150-450); RBC Distribution Width CV 12.7 % (11.6-14.6); RBC Distribution Width SD 43.2 fl (35.1-43.9); Red Blood Count 3.44 M/mm3 (4.6-6.2); White Blood Count 8.9 K/mm3 (4.4-11.0)
[2024-07-20 05:59] LABS: Hemoglobin A1c 7.7 % (<=5.6)
[2024-07-20 06:18] LABS: AST(SGOT) 80 U/L (<=37); Alanine Aminotransfer ALT/SGPT 65 U/L (<=46); Albumin, Serum 3.3 g/dL (3.4-4.8); Alkaline Phosphatase 153 U/L (40-129); Anion Gap 10 (5-15); BUN 34 mg/dL (4-19); BUN/Creat Ratio 25.3 RATIO (10-20); Carbon Dioxide 22.2 mmol/L (21.0-32.0); Chloride 103 mmol/L (98-108); Creatinine, Serum 1.34 mg/dL (0.70-1.20); EST Glomerular Filtration Rate 55 (>60); Estimated Creatinine Clearance 44.34 ml/min (50-250); Globulin 3.1 g/dL (2.2-4.2); Glucose 168 mg/dL (70-99); Magnesium 2.3 mg/dL (1.5-2.2); Potassium 4.2 mmol/L (3.3-5.1); Protein, Total 6.4 g/dL (5.9-8.4); Sodium Level 136 mmol/L (133-145); Total Bilirubin 0.67 mg/dL (0.00-1.30)
[2024-07-20 06:40] LABS: Bedside Glucose 153 mg/dL (74-106)
[2024-07-20] MEDS: Ipratropium/Albuterol Sulfate 3 ML AMPUL.NEB INHALATION ×3 (07:01→19:09)
[2024-07-20] MEDS: Gabapentin 100 MG Capsule PO ×2 (07:54→20:46)
[2024-07-20] MEDS: amLODIPine 5 MG Tablet PO (07:54)
[2024-07-20] MEDS: Insulin Lispro 100 UNIT/ML INSULN.PEN 14 UNIT SC (07:55)
[2024-07-20] MEDS: levETIRAcetam 500 MG Tablet PO (07:55)
[2024-07-20] MEDS: Ezetimibe 10 MG Tablet PO (07:55)
[2024-07-20] MEDS: Niacin SA 500 MG Tablet PO ×2 (07:55→20:53)
[2024-07-20] MEDS: Calcium (Elemental) 500 MG Tablet PO (07:55)
[2024-07-20] MEDS: Carvedilol 3.125 MG TABLET PO ×2 (07:55→16:46)
[2024-07-20] MEDS: Empagliflozin 10 MG Tablet PO (07:55)
[2024-07-20] MEDS: Doxazosin 1 MG Tablet 2 MG PO (07:55)
[2024-07-20] MEDS: traMADol 50 MG Tablet 25 MG PO (07:57)
[2024-07-20] MEDS: Senna/Docusate Sodium 1 Tablet 2 TABLET PO ×2 (07:58→20:54)
[2024-07-20] MEDS: Polyethylene Glycol 3350 17 GM PACKET PO (08:03)
--- NOTE | 2024-07-20 10:49 | PCM.HP.STD ---
[facility] Date of Admission: 07/19/24 Date of Service: 07/20/24 Chief Complaint: DEBILITY DUE TO FALL WITH SDH HPI Narrative SUSAN FALL, is a 78 YO M with a PMH of coronary artery disease (history of CABG in 1998), hypothyroidism, right carotid stenosis (a history of right carotid endarterectomy), CVA (2018), GERD, diabetes mellitus type 2, hyperlipidemia, BPH, tobacco dependence in remission and depression/PTSD who fell down 4 steps onto concrete outside his home on 07/10/2024. He could not tell the ED doc whether he missed a step or had syncope. He presented to the emergency department at [facility] and a laceration to the back of his head was noted. He complained of left shoulder pain and rib pain. He had a similar fall 1 week prior to the most recent event when he became lightheaded and fell. Was unknown whether or not he experienced loss of consciousness. CT of the brain showed a questionable trace extra-axial hemorrhage in the right frontal lobe. There was a left parietal occipital scalp contusion and laceration. CT of the cervical spine showed degenerative disc disease at C5-6 with no fractures or dislocations. There was a 0.6 cm solid pulmonary nodule in the left lung apex with multiple smaller nodules noted. Chest CT demonstrated a comminuted mildly displaced fracture of the left scapula with rib fractures of ribs 3 through on the left. He had 3 sutures placed in the L side head laceration and was transferred to [facility] to the trauma service. At presentation to [facility] The hemoglobin was low at 12.9 with a normal MCV. Platelet count was mildly decreased at 151,000. Creatinine was elevated at 1.33. Repeat CT scan done at [facility] Demonstrated stable mild acute subdural bleeds without significant mass affect and right-sided cerebral encephalomalacia, more likely than not secondary to history of prior stroke. CT chest showed a minimally displaced acute fracture of the left scapula, incomplete/nondisplaced fractures of the anterior left 4th through 6th ribs and incomplete or nondisplaced fractures of the posterior lateral left 6th through 10th ribs. There were calcified granulomas and mediastinal lymph nodes suggesting prior granulomatous disease. He was seen by orthopedics and made nonweightbearing on the left upper extremity but no surgical intervention was done. He was seen by neurosurgery and no surgical intervention was recommended. He was transferred to the surgical intensive care unit on 08-06 for acute hypoxic respiratory failure. CT chest was negative for PE but did show left main bronchus mucous plugging. He was started on Mucomyst and Mucinex. Seen by ST at [facility] and noted to have dysphagia and cognitive dysfunction. Also seen by PT/OT and acute inpt rehab was recommended at [place] from [facility]. He was transferred to the acute inpt rehab unit at [facility] on He is 78 years old and takes Benadryl, Paxil, Remeron and doxazosin at bedtime. Also taking Mirapex and Neurontin. Nursing reports they have had to straight cath twice since admission for large residuals. He is on doxazosin at night which I assume is for BPH. Not on Flomax or Proscar. For DM II he is taking Lantus, Jardiance, Trulicity, Lispro and Glucophage. He is under the opinion that he takes Paxil and Remeron for sleep. He denies feeling depressed. He feels he is overmedicated. He admits to lightheadedness with standing. He loses his balance easily. He tells me he falls asleep within a half an hour of going to bed and he does not wake up until the morning. He takes Requip for restless leg. He has never been told he has Parkinson's disease. He does have a tremor. Tells me both he and his have been losing weight and it is due to decreased appetite. He denies nocturia. He has to urinate in the morning and says that in the first hour after being up he goes 4-5 times. He denies dysuria. He does not see a psychiatrist for management of psychiatric meds. Has had a few falls in the past couple months. He snores but, his has never said he stops breathing. He has RLS. He does not feel rested when he awkens in the AM. He naps and can fall asleep watching TV or reading a book. He falls asleep in the car if someone else is driving. ON LICENSE OF [facility] Medical History (Updated 07/20/24 @ 14:[address] Emily Hawkins, DO) Normochromic normocytic anemia Hemorrhagic stroke (2016) Depression Granulomatous disease, chronic Cholelithiasis Stenosis of right carotid artery Atherosclerotic heart disease of enterprise coronary artery without angina pectoris Hypothyroidism Stroke/cerebrovascular accident Acute metabolic encephalopathy due to hypoglycemia GERD (gastroesophageal reflux disease) Type 2 diabetes mellitus Benign prostate hyperplasia Home Medications ?Medication ?Instructions ?Recorded ?Last Taken ?Type insulin aspart U-100 100 unit/mL 14 units subcut TIDCM blood sugar 04/08/17 07/19/24 History (3 mL) subcutaneous pen (Novolog FlexPen U-100 Insulin aspart) insulin glargine 100 unit/mL 25 unit subcut QHS blood sugar 04/08/17 07/18/24 History subcutaneous solution (Lantus U-100 Insulin) atorvastatin 80 mg tablet 80 mg PO QHS cholesterol med 05/14/21 07/09/24 History levetiracetam 500 mg tablet 500 mg PO BID seizure prevention 05/14/21 07/19/24 History semaglutide 1 mg/dose (2 mg/1.5 1.5 mg subcut FR sugar 05/14/21 07/07/24 History mL) subcutaneous pen injector Held on 07/19/24. Instructions: MD Ordered calcium gluconate 60 mg calcium 30 mg PO DAILY supplement 07/10/24 07/19/24 History (650 mg) tablet doxazosin 2 mg tablet 2 mg PO DAILY prostate 07/10/24 07/10/24 History mirtazapine 30 mg tablet 30 mg PO QHS sleep 07/10/24 07/18/24 History acetaminophen 500 mg tablet 1,000 mg PO Q6H pain 07/19/24 07/18/24 History acetylcysteine 200 mg/mL (20 %) 1 ml inhalation Q6H cough 07/19/24 07/19/24 History solution amlodipine 5 mg tablet 5 mg PO DAILY blood pressure 07/19/24 07/19/24 History carvedilol 3.125 mg tablet (Coreg) 3.125 mg PO BID blood pressure 07/19/24 07/19/24 History empagliflozin 10 mg tablet 10 mg PO DAILY sugar 07/19/24 Unknown History (Jardiance) ezetimibe 10 mg tablet (Zetia) 10 mg PO DAILY cholesterol 07/19/24 Unknown History gabapentin 100 mg capsule 100 mg PO BID nerve pain 07/19/24 07/19/24 History guaifenesin 600 mg tablet, 600 mg PO BID PRN cough 07/19/24 Unknown History extended release 12 hr ipratropium 0.5 mg-albuterol 3 mg 3 ml inhalation Q6H sob/wheezing 07/19/24 07/19/24 History (2.5 mg base)/3 mL nebulization soln levothyroxine 75 mcg tablet 75 mcg PO DAILY thyroid 07/19/24 07/19/24 History (Euthyrox) niacin 500 mg tablet 500 mg PO BID pain 07/19/24 Unknown History ropinirole 0.25 mg tablet 0.25 mg PO QHS sleep 07/19/24 Unknown History Allergy/AdvReac Type Severity Reaction Status Date / Time No Known Allergies Allergy Verified 12/23/23 10:34 Family History Other Heart disease Family History unable to obtain Surgical History (Updated 07/20/24 @ 14:[address] Emily Hawkins DO) Status post surgical removal of malignant neoplasm of skin History of right-sided carotid endarterectomy H/O coronary artery bypass surgery History of left heart catheterization (05/15/21) Social History (Updated 07/20/24 @ 14:[address] Emily Hawkins DO) household members: spouse number of children: 2 Smoking Status: Former smoker alcohol intake: never ROS Constitutional Constitutional: Reports anorexia, change in weight, fatigue, weakness and weight loss; Denies chills, fever(s) or night sweats Eyes Eyes: Denies blurry vision, change in vision, eye pain or loss of vision ENT HEENT: Reports dysphagia; Denies abnormal hearing, headache(s), hearing loss, nasal congestion or sore throat Cardiovascular Cardiovascular: Reports dizziness, lightheadedness and orthostatic symptoms; Denies chest pain, dyspnea on exertion, edema, orthopnea, palpitations, paroxysmal nocturnal dyspnea, pedal edema or syncope Respiratory/Chest Respiratory/Chest: Reports cough and other Details: He coughs when drinking liquids. Sometimes has problems swallowing meats and bread and has to swallow multiple times. Does not regurgitate undigested food but, does have heartburn. ; Denies dyspnea, shortness of breath at rest, shortness of breath with exertion or wheezing Gastrointestinal Gastrointestinal: Reports constipation and heartburn; Denies abdominal pain, diarrhea, dyspepsia, hematemesis, hematochezia, nausea or vomiting Genitourinary Genitourinary: Reports urinary hesitancy and other Details: Urine retention ; Denies dysuria, hematuria, nocturia, urinary frequency, urinary incontinence or urinary urgency Musculoskeletal Musculoskeletal: Reports back pain, joint pain, radiating pain into limb and other Details: Tells me that he has had sciatica. ; Denies joint swelling or neck pain Neurologic Neurologic: Reports disequilibrium, dizziness and tremor(s); Denies confusion, focal weakness, headache(s), paresthesias or seizures Psychiatric Psychiatric: Reports other Details: He denies depression. He tells me that he feels overmedicated. ; Denies anxiety, depression, homicidal ideation, mood swings, suicidal ideation or visual hallucinations Endocrine Endocrinology: Denies change in body appearance, polydipsia or polyuria Hematologic/Lymphatic Hematologic/Lymphatic: Denies easy bleeding, easy bruising or lymphadenopathy Allergic/Immunologic Allergic/Immunologic: Denies rhinitis, eczemia or asthma Vital Signs Vital Signs Vital Signs: 07/19/24 17:54 07/19/24 18:00 07/19/24 18:33 Temperature 97.9 F 97.9 F Temperature Source Temporal Temporal Pulse Rate 56 L 56 L Pulse Rate [Lying] Pulse Rate [Sitting (for 1 minute prior to obtaining)] Pulse Rate [Standing (for 1 minute prior to obtaining)] Pulse Strength Respiratory Rate 17 17 Respiratory Effort Normal Non-Labored Respiratory Depth Shallow Respiratory Pattern Normal Blood Pressure 164/83 H 164/83 H Blood Pressure [Lying] Blood Pressure [Sitting (for 1 minute prior to obtaining)] Blood Pressure [Standing (for 1 minute prior to obtaining)] Blood Pressure Mean 110 110 Blood Pressure Mean [Lying] Blood Pressure Mean [Sitting (for 1 minute prior to obtaining)] Blood Pressure Mean [Standing (for 1 minute prior to obtaining)] Blood Pressure Source Monitor Monitor Blood Pressure Position Semi-Fowlers Semi-Fowlers Blood Pressure Location Right Arm Right Arm Pulse Ox 97 97 Oxygen Delivery Method Room Air Room Air Room Air 07/19/24 19:45 07/19/24 19:45 07/19/24 20:55 Temperature Temperature Source Pulse Rate 79 83 Pulse Rate [Lying] Pulse Rate [Sitting (for 1 minute prior to obtaining)] Pulse Rate [Standing (for 1 minute prior to obtaining)] Pulse Strength Respiratory Rate 16 Respiratory Effort Respiratory Depth Respiratory Pattern Blood Pressure 151/58 H Blood Pressure [Lying] Blood Pressure [Sitting (for 1 minute prior to obtaining)] Blood Pressure [Standing (for 1 minute prior to obtaining)] Blood Pressure Mean 89 Blood Pressure Mean [Lying] Blood Pressure Mean [Sitting (for 1 minute prior to obtaining)] Blood Pressure Mean [Standing (for 1 minute prior to obtaining)] Blood Pressure Source Monitor Blood Pressure Position Semi-Fowlers Blood Pressure Location Right Arm Pulse Ox 93 Oxygen Delivery Method Room Air 07/19/24 22:00 07/20/24 04:45 07/20/24 05:06 Temperature 97.2 F L Temperature Source Temporal Pulse Rate 91 Pulse Rate [Lying] 92 Pulse Rate [Sitting (for 1 minute prior to obtaining)] 90 Pulse Rate [Standing (for 1 minute prior to obtaining)] 93 Pulse Strength Respiratory Rate 18 Respiratory Effort Normal Non-Labored Respiratory Depth Shallow Respiratory Pattern Normal Blood Pressure 151/68 H Blood Pressure [Lying] 165/63 H Blood Pressure [Sitting (for 1 minute prior to obtaining)] 160/62 H Blood Pressure [Standing (for 1 minute prior to obtaining)] 142/60 H Blood Pressure Mean 95 Blood Pressure Mean [Lying] 97 Blood Pressure Mean [Sitting (for 1 minute prior to obtaining)] 94 Blood Pressure Mean [Standing (for 1 minute prior to obtaining)] 87 Blood Pressure Source Monitor Blood Pressure Position Semi-Fowlers Blood Pressure Location Right Arm Pulse Ox 95 Oxygen Delivery Method Room Air Room Air 07/20/24 07:01 07/20/24 07:01 07/20/24 09:21 Temperature Temperature Source Pulse Rate 82 Pulse Rate [Lying] Pulse Rate [Sitting (for 1 minute prior to obtaining)] Pulse Rate [Standing (for 1 minute prior to obtaining)] Pulse Strength Normal (2+) Respiratory Rate 16 Respiratory Effort Respiratory Depth Respiratory Pattern Normal Blood Pressure Blood Pressure [Lying] Blood Pressure [Sitting (for 1 minute prior to obtaining)] Blood Pressure [Standing (for 1 minute prior to obtaining)] Blood Pressure Mean Blood Pressure Mean [Lying] Blood Pressure Mean [Sitting (for 1 minute prior to obtaining)] Blood Pressure Mean [Standing (for 1 minute prior to obtaining)] Blood Pressure Source Blood Pressure Position Blood Pressure Location Pulse Ox 95 Oxygen Delivery Method Room Air 07/20/24 09:53 Temperature Temperature Source Pulse Rate Pulse Rate [Lying] Pulse Rate [Sitting (for 1 minute prior to obtaining)] Pulse Rate [Standing (for 1 minute prior to obtaining)] Pulse Strength Respiratory Rate Respiratory Effort Normal Non-Labored Respiratory Depth Shallow Respiratory Pattern Normal Blood Pressure Blood Pressure [Lying] Blood Pressure [Sitting (for 1 minute prior to obtaining)] Blood Pressure [Standing (for 1 minute prior to obtaining)] Blood Pressure Mean Blood Pressure Mean [Lying] Blood Pressure Mean [Sitting (for 1 minute prior to obtaining)] Blood Pressure Mean [Standing (for 1 minute prior to obtaining)] Blood Pressure Source Blood Pressure Position Blood Pressure Location Pulse Ox Oxygen Delivery Method Weight Weight: 149 lb 11.102 oz Body Mass Index (BMI) 22.1 Physical Exam Const alert, oriented x3 and no apparent distress Constitutional Narrative: Sitting in the recliner at the bedside. Cooperative, Well kempt. Pleasant and makes good eye contact. HEENT HEENT Narrative: Left side laceration and bruising due to recent fall. MM are dry. Tongue protrudes on the midline. No thrush. No facial asymmetry. Masked facies. Eyes PERRL, EOMs intact bilaterally, conjunctivae normal and no scleral icterus Eyes Narrative: No DC from the eyes. Neck supple, No nodes and no carotid bruits General: trachea midline Resp Resp Narrative: CTA anterior and lateral. Not coughing. No conversational dyspnea. Cardio regular rate, regular rhythm and no rub Cardio Narrative: Occasional ectopic. He has a 1-2/6 JOSE at the second RICS. GI normal to inspection, nondistended, normoactive bowel sounds, soft to palpation and non-tender no CVA tenderness Narrative: Denies dysuria Back/Spine Back/Spine Narrative: Tenderness to palpation of the Left chest anterior and posterior. Tells me that pain is adequately controlled. Splinting respirations on the left Extremity no calf tenderness and no pedal edema Extremity Narrative: Onychomycosis of fingernails. No clubbing Skin no jaundice Rashes: no rashes Wound Narrative: Has a few small decubitus ulcers ( stage 1and 2) on his buttocks. Neuro oriented x3 and CN's II-XII intact bilaterally Neuro Narrative: NWB on the LUE and it is in a sling. He tells me that his hands shake when he is doing something.....like filling the ice trays. Decreased shoulder shrug on te left. Good strength in the RUE and both legs. No resting tremor. Masked facies, Shuffling gait. No bradykinesia. No cogwheel rigidity. Psych mental status grossly normal, thought process normal, cooperative, affect normal, speech normal, denies hallucinations, denies homicidal ideation and denies suicidal ideation Appearance: grossly normal, appropriate and well kempt Attitude: calm and engaged Activity / Motor Behavior: appropriate eye contact Results Lab / Micro Data 07/20/24 05:25 07/20/24 05:25 Labs: Laboratory Results - last 24 hr 07/19/24 18:10: Urine Color Yellow, Urine Clarity Clear, Urine pH 5.0, Ur Specific [place] 1.010, Urine Protein Negative, Urine Glucose (UA) 1000 H, Urine Ketones Negative, Urine Occult Blood Negative, Urine Nitrite Negative, Urine Bilirubin Negative, Urine Urobilinogen Normal, Ur Leukocyte Esterase Negative, Urine RBC 0 SEEN, Urine WBC 0-5 SEEN, Ur Squamous Epith Cells 0 SEEN, Urine Bacteria 3+, Urine Mucus 0 SEEN 07/19/24 21:23: POC Glucose 219 H 07/20/24 05:25: WBC 8.9, RBC 3.44 L, Hgb 11.0 L, Hct 33.0 L, MCV 95.9 H, MCH 32.0, MCHC 33.3, RDW Std Deviation 43.2, RDW Coeff of Cy 12.7, Plt Count 211, MPV 9.9, Immature Gran % (Auto) 0.500, Neut % (Auto) 75.1 H, Lymph % (Auto) 11.0 L, [place] % (Auto) 11.7 H, Eos % (Auto) 1.2, Baso % (Auto) 0.5, Absolute Neuts (auto) 6.7, Absolute Lymphs (auto) 0.98, Nucleated RBC % 0, Sodium 136, Potassium 4.2, Chloride 103, Carbon Dioxide 22.2, Anion Gap 10, BUN 34 H, Creatinine 1.34 H, Estim Creat Clear Calc 44.34 L, Est GFR (MDRD) Non-Af 55 L, BUN/Creatinine Ratio 25.3 H, Glucose 168 H, Hemoglobin A1c 7.7 H, Calcium 9.0, Phosphorus 4.0, Magnesium 2.3 H, Total Bilirubin 0.67, AST 80 H, ALT 65 H, Alkaline Phosphatase 153 H, Total Protein 6.4, Albumin 3.3 L, Globulin 3.1, Albumin/Globulin Ratio 1.0, TSH 3.610, Free T4 1.50 H 07/20/24 06:22: POC Glucose 153 H Assessment & Plan Assessment/Plan (1) Debility: (2) Subdural hematoma, acute: PLAN: Due to a fall down 4 steps (3) Multiple rib fractures involving four or more ribs: (4) Scalp laceration: QUALIFIERS: Encounter type: subsequent encounter Qualified Code(s): S01.01XD - Laceration without foreign body of scalp, subsequent encounter (5) Scapula fracture: QUALIFIERS: Encounter type: subsequent encounter Scapula location: unspecified part of scapula Fracture type: closed (6) Acute respiratory failure with hypoxemia: (7) RLS (restless legs syndrome): PLAN: Check an overnight trending pulse ox and also iron studies. (8) Weight loss: (9) Dysphagia: QUALIFIERS: Dysphagia type: unspecified Qualified Code(s): R13.10 - Dysphagia, unspecified (10) Type 2 diabetes mellitus: QUALIFIERS: Diabetes mellitus senior living insulin use: with watermaster use Diabetes mellitus complication status: with kidney complications Diabetes mellitus complication detail: with chronic kidney disease Chronic kidney disease stage: stage 3 (moderate) Chronic kidney disease stage 3 subtype: stage 3a (GFR 45-59) Qualified Code(s): E11.22 - Type 2 diabetes mellitus with diabetic chronic kidney disease; N18.31 - Chronic kidney disease, stage 3a; 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 (13) Hyperlipidemia: QUALIFIERS: Hyperlipidemia type: unspecified Qualified Code(s): E78.5 - Hyperlipidemia, unspecified (14) Granulomatous disease, chronic: PLAN: Lungs, liver and Spleen (15) Cholelithiasis: QUALIFIERS: Cholelithiasis location: gallbladder Cholecystitis presence: without cholecystitis Biliary obstruction: without biliary obstruction Qualified Code(s): K80.20 - Calculus of gallbladder without cholecystitis without obstruction (16) Chronic renal failure, stage 3a: (17) Bacteriuria: (18) Parkinsons disease: QUALIFIERS: Dyskinesia presence: unspecified whether dyskinesia Fluctuating manifestations: unspecified whether manifestations fluctuate Qualified Code(s): G20.A1 - Parkinson's disease without dyskinesia, without mention of fluctuations (19) Normochromic normocytic anemia: (20) Orthostatic hypotension: (21) Hypoglycemia: PLAN: Plan PLAN PT for gait stability OT for ADL's ST for evaluation Analgesics as needed Bowel protocol Fall precautions Assess for Anxiety/Depression GI prophylaxis -Mylanta as needed for heartburn. If this is needed regularly will start a PPI. DVT prophylaxis with MIKO tovar and SCDs. Follow up with PCP, neurology, possibly orthopedics for scapula fracture following DC from IP Rehab AM lab including CMP, CBC, Mag and Phos Overnight trending pulse ox Iron studies Discontinue Paxil and continue Remeron 30 mg at at bedtime Discontinue doxazosin for orthostatic hypotension. Encourage increased fluid intake Adjust the insulin to prevent hypoglycemia. Has tolerated Metformin in the past with no adverse reactions. Suspect he is going to need a Kaplan catheter. If so will likely start Flomax.....tends to droop the BP less than Cardura. Continue gabapentin twice daily. Discontinue Requip. [facility] ECHO, most recent labs prior to the fall, PN's Hold GLucophage for now..........He is on 5 medications for DM II......will try and get the sugars under control with Glargine, schedule Lispro with meals and Jardiance. Hold Trulicity for now. Needs educated on the importance of diet in controlling DM. Continue carb consistent 1800-calorie diet. Continue the at low-salt and low-fat the current diet order. Overnight trending pulse ox I suspect he has Parkinsonism and that it is due to medication and possibly encephalomalacia. Falls are likely possibly related to orthostatic hypotension which may be med related. Recheck orthostatics in the AM 70 Minutes spent reviewing past diagnostic tests, lab results, vital sign trends, medical history, medications, all additional paperwork sent by the previous hospital, and ordering medications, examining the the patient and completing documentation. Charges/Coding Visit Charges Inpatient E&M: 62593 Init Hosp L3
[2024-07-20 12:04] LABS: Bedside Glucose 62 mg/dL (74-106)
--- NOTE | 2024-07-20 14:56 | PCM.RU.PYE ---
Admission Information Primary Diagnosis:: Debility due to multiple traumatic injuries Status Changes from Prescreening?: No changes Identified Actual Problem List:: Falls, Skin Intergrity, Pain, ALteration in Cmfrt, Bowel, Constipation, Alteration in Sleep, Mobility Impaired, Self Care Deficit, Diabetes, Hypoglycemia, Alteration/ Air Exchange, Fluid Change-Dehydration and Alteration-Leisure Activ. Potential Problem List:: DVT, Bleeding, Infection, UTI, Aspiration, Falls, Skin Integrity and Depression Risk of Complications DVT: MIKO Hose and Sequential Compression Device Bleeding: Monitor Lab Values, Nursing to Teach Precautions for anti-coagulation therapy., Wound, if applicable, to be assessed every shift. and Stroke patients assessed for lethargy or change in status. Infection: Clinical Staff to Monitor for S/S of infection: and S/S of infection include fever, redness, warmth, etc. Urinary Tract Infection: Monitor for frequency, burning, discomfort, or incontinence. and Nursing will obtain urine sample for urinalysis and C&S when ordered. Aspiration: Clinical staff will monitor for coughing, drooling, congestion., Speech will evaluate swallowing and dsyphasia. and Nursing will monitor patient swallowing during meals. Falls: Patient will be evaluated for Fall Precautions and Patient will be placed on Fall Precautions as indicated per protocol. Skin Breakdown: Nursing will assess skin daily using assessment tool. and Nursing will place on Skin Breakdown Precautions as indicated. Pain: Clinical staff will assess patient's pain level per protocol., Medications will be given, if needed, and the pain level reassessed. and Other methods: Massage, distraction, decrease stimulus, etc. used PRN. Plan of Care Patient requires physician specializing in physical medicine and rehab oversight to provide close medical supervision of rehab issues including: Pain Management, Sleep Problems, Bowel and Bladder, Medical and co-morbidity Management, DVT prophylaxis, Rehabilitation Leadership and Coordination of treatment team Patient needs Physical Therapy: For a minimum of 1 hour and At least 5 out of 7 days Patient needs Physical Therapy to improve:: Mobility, Strengthening, Transfers, Stretching, ROM, Endurance, Stairs, Gait and Balance Patient needs Occupational Therapy: For a minimum of 1 hour and At least 5 out of 7 days Patient needs Occupational Therapy to improve ADL's incl.: Eating, Grooming, Bathing, Dressing, Toileting, Toilet transfers, Community Reintegration, Higher functioning activities, Household tasks, Adaptive Equipment, Splinting and Other activities as determined Patient requires speech therapy: For a minimum of 1 hour and At least 5 out of 7 days Patient requires speech therapy for: Swallowing, Cognition, Language Skills and Compensatory Strategies Patient requires 24/ Rehabilitation Nursing for: Pain Issues, Identifying and preventing risk factors, Monitoring and reporting current medical conditions, Assisting with ambulation, transfer, and all ADL's, Teaching patients about disease process and medications, Family teaching, Providing safe environment, Bowel and Bladder Issues, Skin integrity and Medication Management Patient needs Ginseng Farmer/ Case Management for: Discharge Planning, Arranging Home Equipment or Services and Family Interventions Patient needs Dietary and Nutrition Services for: Adequate Nutrition, Nutritional Supplements and Nutritional Education Goals Goals Patient will remain: free from falls Patient will perform eating at: MOD I level of assist. Patient will perform bed mobility at: MOD I level of assist. Patient will complete transfers from bed to chair at: MOD I level of assist. Patient will ambulate: - (350 feet with least restrictive device) Patient will complete upper body dressing at: MOD I level of assist. Patient will complete lower body dressing at: MOD I level of assist. (With adaptive equipment as needed) Patient will complete toilet transfer at: MOD I level of assist. Patient will complete toileting at: MOD I level of assist. Patient will perform bathing at: MOD I level of assist. Patient will perform Tub/Shower transfer at: - (Supervision) Patient will complete grooming at: MOD I level of assist. (While standing at the sink) Patient will achieve: - (5 steps with 2 handrails at standby assist) Patient will have pain level of: of 3 or less Patient's skin will: remain intact Patient will receive: adequate nutrition. Discharge Planning Pt Prognosis for Sig. Practical Improv. w/in Reasonable Time: Good Estimated Length of stay (days): 21 Anticipated D/C Destination: Home with Outpt Therapy Was Preadmission Assessment Accurate?: Yes
[2024-07-20] MEDS: Juven (unflavored) Packet 1 PACKET PO (16:46)
[2024-07-20] MEDS: Insulin Lispro 100 UNIT/ML INSULN.PEN SC (16:48)
[2024-07-20] MEDS: Insulin Lispro 100 UNIT/ML INSULN.PEN 10 UNIT SC (16:48)
[2024-07-20 16:59] LABS: Ferritin 587 ng/mL (37-417); Iron 62 ug/dL (65-175); Iron Binding Capacity,Unsat 162 ug/dL (228-428)
[2024-07-20 17:30] LABS: Bedside Glucose 239 mg/dL (74-106)
[2024-07-20 18:33] LABS: Iron Binding Capacity,Total 224 ug/dL (250-450)
[2024-07-20] MEDS: guaiFENesin 600 MG Tablet PO (20:53)
[2024-07-20] MEDS: Atorvastatin Calcium 80 MG Tablet PO (20:53)
[2024-07-20] MEDS: Insulin Glargine-YFGN 100 UNIT/ML Pen 18 UNIT SC (20:54)
[2024-07-20] MEDS: Mirtazapine 30 MG Tablet PO (20:54)
[2024-07-20 23:22] LABS: Bedside Glucose 121 mg/dL (74-106)
[2024-07-21] MEDS: Acetaminophen 500 MG Tablet 1000 MG PO ×3 (05:47→20:45)
[2024-07-21 06:00] VITALS: BP 128/61; PULSE 79; RESP 17; TEMP 37.2; O2SAT 92
[2024-07-21 06:35] LABS: Bedside Glucose 110 mg/dL (74-106)
[2024-07-21 08:00] VITALS: BP 118/48; BP 118/49; BP 133/52; PULSE 79; PULSE 94
[2024-07-21] MEDS: Juven (unflavored) Packet 1 PACKET PO (08:06)
[2024-07-21] MEDS: guaiFENesin 600 MG Tablet PO ×2 (08:07→20:46)
[2024-07-21] MEDS: amLODIPine 5 MG Tablet PO (08:07)
[2024-07-21] MEDS: Senna/Docusate Sodium 1 Tablet 2 TABLET PO ×2 (08:07→20:44)
[2024-07-21] MEDS: Ezetimibe 10 MG Tablet PO (08:07)
[2024-07-21] MEDS: Carvedilol 3.125 MG TABLET PO ×2 (08:07→16:32)
[2024-07-21] MEDS: Calcium (Elemental) 500 MG Tablet PO (08:07)
[2024-07-21] MEDS: Niacin SA 500 MG Tablet PO ×2 (08:08→20:46)
[2024-07-21] MEDS: Empagliflozin 10 MG Tablet PO (08:08)
[2024-07-21] MEDS: Insulin Lispro 100 UNIT/ML INSULN.PEN 10 UNIT SC ×3 (08:10→16:45)
[2024-07-21] MEDS: Gabapentin 100 MG Capsule PO ×2 (08:28→20:44)
--- NOTE | 2024-07-21 11:21 | PN_ITS ---
Subjective Subjective Afebrile VSS -orthostatics are negative today. Heart rate is within normal limits. Blood pressure is 118/48 today. The range of blood pressure over the past 24 hours has been from 118/48 to 165/63. Maintaining appropriate oxygen saturation on RA Oral intake - FOOD good FLUIDS fair The blood sugar record was reviewed. Blood sugar yesterday prior to supper was 239 however he was hypoglycemic at lunch and got no insulin. The at bedtime blood sugar was 121 and the fasting today is 110. Lunch BS is 121. Discussed with nursing -Kaplan catheter was placed last evening for urine retention. No seizure activity noted with discontinuation of Keppra. Reviewed the THERAPY notes - D/W PT and he did much better with them today. More alert, better endurance, talkative. He had OT early this AM and was not talking much and seemed tired........hangover from Remeron at HS? He tells me his pain is adequately controlled. Scored a 34 /50 on the BCAT Medication list reviewed. He had 1 dose of tramadol yesterday a.m. and is on scheduled Tylenol. Urine culture has 80-100,000 Enterococcus species.....susceptibilities are pending. Urine in the tubing an Kaplan bag is pale yellow and clear. He has been AF with a normal WBC and there were only 0-5 WBC's on the UA. NO treatment at this time.....asymptomatic bacteriuria. Percent iron saturation is 28. Denies lightheadedness, CP, SOB, palpitations, N/V/abd pain, dysuria and calf pain. Tells me he slept well last night. Feels more alert today. He feels as though he is constipated. He feels bloated. He had 1 small liquid diarrhea stool yesterday and a medium non-formed. Denies RLS last night. Overnight trending pulse ox was reviewed.......No desaturation events. Lowest O2 sat 88% for 8 sec. Was at 89% for 7 minutes and 10 seconds. Objective Data Objective Data Vital Signs: Vital Signs Temp Pulse Resp BP Pulse Ox O2 Del Method FiO2 98.9 F 79 17 118/48 L 92 Room Air 21 07/21/24 06:00 07/21/24 08:00 07/21/24 06:00 07/21/24 08:00 07/21/24 06:00 07/21/24 06:00 07/20/24 22:42 Oxygen Delivery Method Room Air Weight: 149 lb 11.102 oz Body Mass Index (BMI) 22.1 Intake & Output: Intake and Output for Last 24 Hours 07/19/24 07/20/24 07/21/24 23:59 23:59 23:59 Intake Total 120 / 320 1340 / 1340 250 / 250 Output Total 900 / 900 2400 / 2400 420 / 420 Balance -780 / -580 -1060 / -1060 -170 / -170 Lab / Micro Data 07/20/24 05:25 07/20/24 05:25 Labs: Laboratory Results - last 24 hr 07/20/24 05:25: Iron 62 L, TIBC 224 L, Iron Saturation 28.0, Unsaturated IBC 162 L, Ferritin 587 H 07/20/24 11:42: POC Glucose 62 L 07/20/24 16:48: POC Glucose 239 H 07/20/24 20:50: POC Glucose 121 H 07/21/24 06:15: POC Glucose 110 H Physical Exam Const alert, oriented x3 and no apparent distress Constitutional Narrative: pleasant General Appearance: cooperative HEENT HEENT Narrative: Left side laceration and bruising due to recent fall. Tongue protrudes on the midline. No thrush. No facial asymmetry. Better facial expression today. MM are more moist today. Resp Resp Narrative: CTA anterior and lateral. Not coughing. No conversational dyspnea. Cardio regular rate, regular rhythm and no rub Cardio Narrative: Occasional ectopic. He has a 1-2/6 JOSE at the second RICS. GI normal to inspection, nondistended, normoactive bowel sounds, soft to palpation and non-tender GI Narrative: mild tympany in the lower abd Extremity no calf tenderness and no pedal edema Extremity Narrative: Onychomycosis of fingernails. No clubbing Skin Rashes: no rashes Wound Narrative: Has a few small decubitus ulcers ( stage 1and 2) on his buttocks. Assessment & Plan Assessment/Plan (1) Debility: (2) Subdural hematoma, acute: (3) Multiple rib fractures involving four or more ribs: (4) Scalp laceration: QUALIFIERS: Encounter type: subsequent encounter Qualified Code(s): S01.01XD - Laceration without foreign body of scalp, subsequent encounter (5) Scapula fracture: QUALIFIERS: Encounter type: subsequent encounter Scapula location: unspecified part of scapula Fracture type: closed (6) RLS (restless legs syndrome): (7) Weight loss: (8) Dysphagia: QUALIFIERS: Dysphagia type: unspecified Qualified Code(s): R13.10 - Dysphagia, unspecified (9) Type 2 diabetes mellitus: QUALIFIERS: Diabetes mellitus complication status: with kidney complications Diabetes mellitus complication detail: with chronic kidney disease Diabetes mellitus superintendent container terminal insulin use: with custodial use Chronic kidney disease stage: stage 3 (moderate) Chronic kidney disease stage 3 subtype: stage 3a (GFR 45-59) Qualified Code(s): E11.22 - Type 2 diabetes mellitus with diabetic chronic kidney disease; N18.31 - Chronic kidney disease, stage 3a; Z79.4 - superintendent container terminal (current) use of insulin (10) Benign hypertension: (11) Essential hypertension: (12) Chronic renal failure, stage 3a: (13) Bacteriuria: (14) Parkinsons disease: QUALIFIERS: Dyskinesia presence: unspecified whether dyskinesia F luctuating manifestations: unspecified whether manifestations fluctuate Q ualified Code(s): G20.A1 - Parkinson's disease without dyskinesia, without mention of fluctuations (15) Normochromic normocytic anemia: (16) Orthostatic hypotension: (17) Hypoglycemia: PLAN: Plan 1. Continue therapy 2. Decrease glargine to 16 units at at bedtime. 3. KUB today 4. Paxil at at bedtime was stopped. Will continue Remeron at 30 mg for another 4 to 5 days and then consider decreasing to 15 mg if everything is going well. Would like to taper the Remeron to prevent withdrawal from SSRIs. 5. Start Flomax 0.4 mg daily -voiding trial after 5 or 6 doses. 6. I suspect he has asymptomatic bacteriuria on the urine culture. No antibiotics at this time but will continue to monitor closely, emerald since he now has a Kaplan for urine retention. 7. Recheck orthostatics after a few doses of Flomax. I suspect many of his issues are due to overmedication. will continue to adjust meds/doses every few days. Charges/Coding Visit Charges Inpatient E&M: 32600 Subs Hosp L1
--- NOTE | 2024-07-21 11:28 | SP.MBSS_ITS ---
Modified Barium Swallow Patient Information Study Date: 07/21/24 Study Time: 12:20 Direct Billable Minutes: 120 Total Minutes procedure & reportin Diagnosis: dysphagia Referring Physician: Emily Hawkins Reason for Referral: MBSS recommended following clinical bedside swallow evaluation to objectively assess swallow function d/t report of baseline cough w/ PO intake, cough w/ Kendra Swallow Assessment and suspicion for Parkinsonism. Medical History: Ace White is a 78-year-old male with a medical history including coronary artery disease (CABG in 1998), hypothyroidism, right carotid stenosis (carotid endarterectomy), CVA (2018), GERD, type 2 diabetes, hyperlipidemia, BPH, depression, and PTSD. On 07/10/2024, he fell down 4 steps onto concrete, resulting in a head laceration, left shoulder and rib pain, and a possible syncopal episode. Imaging revealed a trace extra-axial hemorrhage, left scapula and rib fractures, and a solid pulmonary nodule. He was transferred to [facility] for trauma care, where he was diagnosed with mild acute subdural bleeds, left upper extremity fractures, and respiratory failure. He was started on treatment for mucous plugging and seen by speech therapy for dysphagia and cognitive dysfunction. Acute inpatient rehabilitation was recommended at discharge. Pt admitted to [facility] Inpatient Rehab Unit on 07/19/24. Current Diet Ordered: regular/thin Dentition: Upper Dentures and Lower Dentures Mental Status: WNL Respiratory Status: Oxygenating on Room Air Penetration-Aspiration Scale Penetration-Aspiration Scale: OBJECTIVE ASSESSMENT OF SWALLOW FUNCTION (QUANTITATIVE ? PER TRIAL): PENETRATION / ASPIRATION SCALE (CAMACHO): 1 = does not enter airway 2 = enters airway/above vocal folds/ejected 3 = enters airway/above vocal folds/not ejected 4 = enters airway/contacts vocal folds/ejected 5 = enters airway/contacts vocal folds/not ejected 6 = enters airway/below vocal folds/ejected 7 = enters airway/below vocal folds/not ejected despite effort 8 = enters airway/below vocal folds/no effort Penetration-Aspiration Scale Score Thin Liquid via teaspoon: Result: 1= does not enter airway Thin Liquid via teaspoon Trial 2: Result: 1= does not enter airway Thin Liquid via small single sip: cup: Result: 8= enters airway/below vocal folds/no effort Thin Liquid via small single sip: cup Chin tuck: Result: 8= enters airway/below vocal folds/no effort Thin Liquid via small single sip: cup Supraglottic swallow: Result: 5= enters airways/contacts vocal folds/not ejected [place] Thick Liquid via small single sip: cup: Result: 3= enters airways/above vocal folds/not ejected [place] Thick Liquid via small single sip: cup Effortful swallow: Result: 3= enters airways/above vocal folds/not ejected [place] Thick Liquid via small single sip: cup Effortful swallow: Result: 3= enters airways/above vocal folds/not ejected Pudding: Result: 1= does not enter airway Cookie: Result: 1= does not enter airway Thin Liquid via single sip: straw: Result: 8= enters airway/below vocal folds/no effort [place] Thick Liquid via small single sip: cup: Result: 1= does not enter airway Oral Phase Labial Seal: No Labial Escape Tongue Control During Bolus Hold: Cohesive bolus between tongue to palatal seal Bolus Preparation/Mastication: Slow prolonged chewing/mashing with complete recollection Bolus Transport/Lingual Motion: Repetitive/disorganized tongue motion Oral Residue: Trace residue lining oral structures Pharyngeal Phase Initiation of Pharyngeal Swallow: Bolus head in valleculae Soft Palate Elevation: No bolus between soft palate and pharyngeal wall Laryngeal Elevation: Partial superior movement thyroid cart/partial apprx aryt- epig petiole Anterior Hyoid Excursion: Partial anterior movement Epiglottic Movement: Complete inversion Laryngeal Vestibule Closure at Height of Swallow: Incomplete; narrow column of air/contrast in laryngeal vestibule Pharyngeal Stripping Wave: Present - diminished Pharyngoesophageal Segment Opening: Parital distension and partial duration; parital obstruction of flow Tongue Base Retraction: Narrow column of contrast between tongue base & post. pharyngeal wall Pharyngeal Residue: Collection of residue within or on pharyngeal structures Esophageal Phase Esophageal Clearance: Esophageal retention w/ retrograde flow below pharyngoesophageal seg. Treatment Strategies Effects of treatment strategies attemped:: * Effortful Swallow - not effective * Supraglottic Swallow - somewhat effective, reduces amount penetrated * Chin Tuck - not effective * Cough and reswallow - somewhat effective to reduce tracheal aspirate/laryngeal vestibule penetration * Double Swallow - somewhat effective to clear post prandial pharyngeal residue Diagnosis/Impression Diagnosis: moderate oropharyngeal dysphagia Impression: The oral phase is characterized by... * adequate oral containment w/out anterior bolus leakage * good tongue to palate seal for containment of bolus prior to swallow onset * repetitive rocking lingual motion w/ AP bolus transportation The pharyngeal phase is characterized by... * incomplete hyolaryngeal excursion w/ penetration/aspiration of thin, penetrat ion w/ mildly thick and intermittent penetration w/ moderately thick liquids * penetration/aspiration was silent in nature w/ delayed cough occurring w/ larger volume of aspirate * mildly reduced tongue base retraction and pharyngeal contraction * reduced pharyngoesophageal segment distention and duration * residue collection w/in the vallecula, pyriforms and lining the aryepiglottic folds, a double swallow was effective to partially clear the residuals The esophageal phase is characterized by... * poor esophageal bolus clearance w/ esophageal retention and retrograde bolus flow below the pharyngoesophageal segment, GI referral recommended Recommendations Diet: Regular Textures and Thin Liquids Comment: * Use provale cup to limit liquid boluses to 5cc during meals * If still coughing w/ thin intake via provale cup, discontinue use and instead limit liquid intake w/ meals to consumption from a teaspoon only * OK to have water between meals via regular sips from a cup long as thorough oral hygiene is completed prior to intake & is separate from meals * small bites/sips * double swallow to clear pharyngeal residue * cough and reswallow as needed Supervision: Distant Supervision (provide verbal cues/reminders for use of aspiration precautions when passing meals/meds) Recommend Repeat Modified Barium Swallow: Yes Need for Skilled Speech Therapy Services: Yes Comment: ST for oropharyngeal strengthening, education re: aspiration precautions/compensatory strategies, education re: [place] Water Protocol Recommended Referrals: GI Consult Education Completed: 1. Described result of evaluation. (images were reviewed w/ the patient to improve understanding of silent aspiration) and 2. Pt understands evaluation & agrees with goals and treatment plan. (educated re: MBSS findings, [place] Water Protocol and compensatory strategy use to reduce risk for aspiration, signage posted at HOB and tray table to reinforce) Status Active ST Patient: Active Contact Information [facility] Speech Therapy:: Deidra Carrion M.A. ICE CUTTER Speech-Language Pathologist [place] [address] [phone] [email or web address]
[2024-07-21 11:47] LABS: Bedside Glucose 121 mg/dL (74-106)
--- NOTE | 2024-07-21 12:09 | RAD_ITS ---
EXAM: XR Abdomen, 1 View CLINICAL INDICATION: BLOATING AND CONSTIPATION TECHNIQUE: Frontal supine view of the abdomen/pelvis. COMPARISON: No relevant prior studies available. FINDINGS: GASTROINTESTINAL TRACT: Fecal retention in the colon consistent with constipation. No dilation. BONES/JOINTS: Unremarkable. No acute fracture. RAD/Abdomen Single View IMPRESSION: Fecal retention in the colon consistent with constipation. Reading Location: [facility]
[2024-07-21 13:10] VITALS: PULSE 75; RESP 16; O2SAT 93
[2024-07-21] MEDS: Ipratropium/Albuterol Sulfate 3 ML AMPUL.NEB INHALATION (13:10)
[2024-07-21] MEDS: Acetylcysteine 800 MG/4 ML VIAL.NEB. 200 MG INHALATION (13:10)
[2024-07-21] MEDS: Magnesium Citrate 300 ML PO (16:32)
[2024-07-21] MEDS: Tamsulosin HCl 0.4 MG Capsule PO (16:33)
[2024-07-21] MEDS: Insulin Lispro 100 UNIT/ML INSULN.PEN SC (16:45)
[2024-07-21 17:45] LABS: Bedside Glucose 194 mg/dL (74-106)
[2024-07-21 18:00] VITALS: BP 118/60; PULSE 74; RESP 17; TEMP 36.8; O2SAT 96
[2024-07-21 19:35] VITALS: PULSE 71; RESP 17; O2SAT 96
[2024-07-21] MEDS: Mirtazapine 30 MG Tablet PO (20:45)
[2024-07-21] MEDS: Atorvastatin Calcium 80 MG Tablet PO (20:46)
[2024-07-21] MEDS: Insulin Glargine-YFGN 100 UNIT/ML Pen 16 UNIT SC (20:47)
[2024-07-21 22:25] LABS: Bedside Glucose 170 mg/dL (74-106)
[2024-07-22] MEDS: Levothyroxine 75 MCG Tablet PO (05:53)
[2024-07-22] MEDS: Acetaminophen 500 MG Tablet 1000 MG PO ×3 (05:53→20:07)
[2024-07-22 06:00] VITALS: BP 134/60; PULSE 84; RESP 14; TEMP 36.6; O2SAT 95
[2024-07-22 06:22] LABS: Bedside Glucose 149 mg/dL (74-106)
[2024-07-22] MEDS: Bisacodyl 10 MG Suppository RC (06:47)
[2024-07-22] MEDS: Insulin Lispro 100 UNIT/ML INSULN.PEN 10 UNIT SC ×3 (08:13→17:23)
[2024-07-22] MEDS: Niacin SA 500 MG Tablet PO ×2 (08:17→20:07)
[2024-07-22] MEDS: Senna/Docusate Sodium 1 Tablet 2 TABLET PO ×2 (08:17→20:06)
[2024-07-22] MEDS: Polyethylene Glycol 3350 17 GM PACKET PO (08:18)
[2024-07-22] MEDS: guaiFENesin 600 MG Tablet PO ×2 (08:18→20:07)
[2024-07-22] MEDS: Ezetimibe 10 MG Tablet PO (08:18)
[2024-07-22] MEDS: Gabapentin 100 MG Capsule PO ×2 (08:18→20:07)
[2024-07-22] MEDS: amLODIPine 5 MG Tablet PO (08:18)
[2024-07-22] MEDS: Calcium (Elemental) 500 MG Tablet PO (08:18)
[2024-07-22] MEDS: Carvedilol 3.125 MG TABLET PO ×2 (08:18→17:27)
[2024-07-22] MEDS: Juven (unflavored) Packet 1 PACKET PO ×2 (08:18→17:26)
[2024-07-22] MEDS: Empagliflozin 10 MG Tablet PO (08:18)
[2024-07-22 09:37] VITALS: PULSE 71; RESP 16; O2SAT 95
[2024-07-22 12:23] LABS: Bedside Glucose 146 mg/dL (74-106)
[2024-07-22 13:25] VITALS: PULSE 80; RESP 18; O2SAT 98
[2024-07-22] MEDS: Ipratropium/Albuterol Sulfate 3 ML AMPUL.NEB INHALATION ×2 (13:25→19:00)
[2024-07-22] MEDS: Insulin Lispro 100 UNIT/ML INSULN.PEN SC (17:23)
[2024-07-22] MEDS: Tamsulosin HCl 0.4 MG Capsule PO (17:27)
[2024-07-22 18:00] VITALS: BP 144/59; PULSE 72; RESP 16; TEMP 36.4; O2SAT 95
[2024-07-22 19:00] VITALS: PULSE 85; RESP 16; O2SAT 94
--- NOTE | 2024-07-22 19:55 | CPS ---
Patient refused mucomyst medication, only duoneb given at 1900 on 07/22/24
[2024-07-22] MEDS: Insulin Glargine-YFGN 100 UNIT/ML Pen 16 UNIT SC (20:03)
[2024-07-22] MEDS: Atorvastatin Calcium 80 MG Tablet PO (20:06)
[2024-07-22] MEDS: Mirtazapine 30 MG Tablet PO (20:06)
[2024-07-22 20:51] LABS: Bedside Glucose 281 mg/dL (74-106)
[2024-07-22 20:51] LABS: Bedside Glucose 231 mg/dL (74-106)
[2024-07-23] MEDS: Levothyroxine 75 MCG Tablet PO (05:38)
[2024-07-23] MEDS: Acetaminophen 500 MG Tablet 1000 MG PO ×3 (05:38→22:34)
[2024-07-23] MEDS: Insulin Lispro 100 UNIT/ML INSULN.PEN SC ×3 (05:41→16:14)
[2024-07-23 05:45] VITALS: BP 143/57; PULSE 70; RESP 18; TEMP 36.9; O2SAT 94
[2024-07-23 06:06] LABS: Bedside Glucose 241 mg/dL (74-106)
[2024-07-23 07:50] VITALS: PULSE 63; RESP 16; O2SAT 96
[2024-07-23] MEDS: Ipratropium/Albuterol Sulfate 3 ML AMPUL.NEB INHALATION ×2 (07:50→19:22)
[2024-07-23] MEDS: Insulin Lispro 100 UNIT/ML INSULN.PEN 10 UNIT SC ×3 (08:10→16:14)
[2024-07-23] MEDS: Juven (unflavored) Packet 1 PACKET PO ×2 (08:11→16:15)
[2024-07-23] MEDS: amLODIPine 5 MG Tablet PO (08:12)
[2024-07-23] MEDS: Polyethylene Glycol 3350 17 GM PACKET PO (08:12)
[2024-07-23] MEDS: Calcium (Elemental) 500 MG Tablet PO (08:12)
[2024-07-23] MEDS: Senna/Docusate Sodium 1 Tablet 2 TABLET PO ×2 (08:12→22:34)
[2024-07-23] MEDS: Carvedilol 3.125 MG TABLET PO ×2 (08:12→16:15)
[2024-07-23] MEDS: Empagliflozin 10 MG Tablet PO (08:16)
[2024-07-23] MEDS: guaiFENesin 600 MG Tablet PO ×2 (08:16→22:34)
[2024-07-23] MEDS: Niacin SA 500 MG Tablet PO ×2 (08:17→22:35)
[2024-07-23] MEDS: Ezetimibe 10 MG Tablet PO (08:17)
[2024-07-23] MEDS: Gabapentin 100 MG Capsule PO ×2 (08:19→20:29)
[2024-07-23 08:20] VITALS: BP 122/76; PULSE 76
[2024-07-23 12:00] LABS: Bedside Glucose 237 mg/dL (74-106)
[2024-07-23] MEDS: Tamsulosin HCl 0.4 MG Capsule PO (16:15)
[2024-07-23 16:53] LABS: Bedside Glucose 278 mg/dL (74-106)
[2024-07-23 17:34] VITALS: BP 119/57; PULSE 77; RESP 16; TEMP 36.3; O2SAT 97
[2024-07-23 19:22] VITALS: PULSE 82; RESP 12
[2024-07-23] MEDS: Atorvastatin Calcium 80 MG Tablet PO (22:35)
[2024-07-23] MEDS: Mirtazapine 30 MG Tablet PO (22:35)
[2024-07-23] MEDS: Insulin Glargine-YFGN 100 UNIT/ML Pen 16 UNIT SC (22:45)
[2024-07-23 23:07] LABS: Bedside Glucose 282 mg/dL (74-106)
[2024-07-24] MEDS: Acetaminophen 500 MG Tablet 1000 MG PO ×3 (05:04→21:18)
[2024-07-24] MEDS: Levothyroxine 75 MCG Tablet PO (05:04)
[2024-07-24 05:53] VITALS: BP 134/56; PULSE 69; RESP 16; TEMP 36.4; O2SAT 94
--- NOTE | 2024-07-24 06:03 | CPS ---
Patient refused mucomyst treatment, only duoneb given at this time
[2024-07-24] MEDS: Insulin Lispro 100 UNIT/ML INSULN.PEN SC ×2 (06:13→17:22)
[2024-07-24 07:07] LABS: Bedside Glucose 223 mg/dL (74-106)
[2024-07-24] MEDS: Juven (unflavored) Packet 1 PACKET PO ×2 (07:47→17:24)
[2024-07-24] MEDS: Ezetimibe 10 MG Tablet PO (07:49)
[2024-07-24] MEDS: amLODIPine 5 MG Tablet PO (07:49)
[2024-07-24] MEDS: Carvedilol 3.125 MG TABLET PO ×2 (07:49→17:23)
[2024-07-24] MEDS: guaiFENesin 600 MG Tablet PO ×2 (07:50→21:18)
[2024-07-24] MEDS: Empagliflozin 10 MG Tablet PO (07:50)
[2024-07-24] MEDS: Senna/Docusate Sodium 1 Tablet 2 TABLET PO ×2 (07:50→21:18)
[2024-07-24] MEDS: Calcium (Elemental) 500 MG Tablet PO (07:50)
[2024-07-24] MEDS: Niacin SA 500 MG Tablet PO ×2 (07:50→21:18)
[2024-07-24] MEDS: Polyethylene Glycol 3350 17 GM PACKET PO (07:50)
[2024-07-24] MEDS: Insulin Lispro 100 UNIT/ML INSULN.PEN 10 UNIT SC (07:52)
[2024-07-24] MEDS: Gabapentin 100 MG Capsule PO ×2 (07:54→21:17)
[2024-07-24 08:08] VITALS: BP 154/52; PULSE 65
--- NOTE | 2024-07-24 09:55 | PCM.PROGNOTE ---
Subjective Subjective Ace was seen on team rounds today. His was not available to participate. Afebrile VSS -blood pressures over the weekend have ranged from 119/57 to 154/52. Heart rate is within normal limits. Maintaining appropriate oxygen saturation on RA-94 to 97%. Oral intake - FOOD good FLUIDS fair Blood sugar record was reviewed and adjustments for made to the insulin regimen. Had multiple BM's on Wednesday after receiving MAG Citrate for constipation on Wednesday. Discussed with nursing - no problems that need addressed. Has been refusing Mucomyst. Reviewed the THERAPY notes Medication list reviewed. Echocardiogram done at the [facility] on February 26, 2022 showed normal left ventricular size and systolic function with an estimated EF of 55 to 60%. The right ventricle was grossly normal in size with mildly reduced ventricular systolic function. The left atrium was mildly dilated and the right atrium was of normal size. Mitral valve leaflets appeared thickened but there was no mitral valve stenosis. There was mild MR. There was mild TR. The right ventricular systolic function was mildly reduced and the right ventricular pressure was estimated at 23. There was mild aortic stenosis present. Having shaking chills this AM. Denies lightheadedness, cephalgia, chest pain, palpitations, shortness of breath, cough, abdominal pain, nausea suprapubic pain and calf pain. Objective Data Objective Data Vital Signs: Vital Signs Temp Pulse Resp BP Pulse Ox O2 Del Method O2 Flow Rate 97.5 F L 65 16 154/52 H 94 Room Air 2 07/24/24 05:53 07/24/24 08:08 07/24/24 05:53 07/24/24 08:08 07/24/24 05:53 07/24/24 05:53 07/22/24 06:00 FiO2 21 07/20/24 22:42 Oxygen Flow Rate (L/min) 2 Oxygen Delivery Method Room Air Weight: 149 lb 11.102 oz Body Mass Index (BMI) 22.1 Intake & Output: Intake and Output for Last 24 Hours 07/22/24 07/23/24 07/24/24 23:59 23:59 23:59 Intake Total 1070 / 1070 1120 / 1120 660 / 660 Output Total 1625 / 1625 1150 / 1150 1000 / 1000 Balance -555 / -555 -30 / -30 -340 / -340 Lab / Micro Data 07/25/24 05:19 07/25/24 05:19 Labs: Laboratory Results - last 24 hr 07/23/24 11:43: POC Glucose 237 H 07/23/24 16:13: POC Glucose 278 H 07/23/24 22:43: POC Glucose 282 H 07/24/24 06:11: POC Glucose 223 H Micro: Microbiology 07/19/24 18:10 Urine Catheter - Catheter Urine Culture - Final Enterococcus faecalis Physical Exam Const alert Constitutional Narrative: pleasant General Appearance: cooperative HEENT HEENT Narrative: Left side laceration and bruising due to recent fall. Tongue protrudes on the midline. No thrush. No facial asymmetry. Better facial expression today. MM are more moist today. Resp Resp Narrative: CTA anterior and lateral. Not coughing. No conversational dyspnea. Cardio regular rate, regular rhythm and no rub Cardio Narrative: Occasional ectopic. He has a 1-2/6 JOSE at the second RICS. GI normal to inspection, nondistended, normoactive bowel sounds, soft to palpation and non-tender GI Narrative: mild tympany in the lower abd Extremity no calf tenderness and no pedal edema Neuro Neuro Narrative: resting tremors and some iontention tremor also. Masked facies with decreased blink. Festinating gait with physical therapy for the time today. Overall his gait is better than it was at admission but he still has Parkinson's features. Some bradykinesia. Psych affect normal Psych Narrative: Sleeping well despite discontinuing PAxil. Slow to get moving in the AM. Does better in the afternoons. Hangover from Remeron? Assessment & Plan Assessment/Plan (1) Debility: (2) Subdural hematoma, acute: (3) Multiple rib fractures involving four or more ribs: (4) Scalp laceration: QUALIFIERS: Encounter type: subsequent encounter Qualified Code(s): S01.01XD - Laceration without foreign body of scalp, subsequent encounter (5) Scapula fracture: QUALIFIERS: Encounter type: subsequent encounter Scapula location: unspecified part of scapula Fracture type: closed (6) RLS (restless legs syndrome): (7) Weight loss: (8) Dysphagia: QUALIFIERS: Dysphagia type: unspecified Qualified Code(s): R13.10 - Dysphagia, unspecified (9) Type 2 diabetes mellitus: QUALIFIERS: Diabetes mellitus complication status: with kidney complications Diabetes mellitus complication detail: with chronic kidney disease Diabetes mellitus snf insulin use: with supervisor intermediates use Chronic kidney disease stage: stage 3 (moderate) Chronic kidney disease stage 3 subtype: stage 3a (GFR 45-59) Qualified Code(s): E11.22 - Type 2 diabetes mellitus with diabetic chronic kidney disease; N18.31 - Chronic kidney disease, stage 3a; Z79.4 - FDC (current) use of insulin (10) Benign hypertension: (11) Essential hypertension: (12) Chronic renal failure, stage 3a: (13) Bacteriuria: (14) Parkinsons disease: QUALIFIERS: Dyskinesia presence: unspecified whether dyskinesia Fluctuating manifestations: unspecified whether manifestations fluctuate Qualified Code(s): G20.A1 - Parkinson's disease without dyskinesia, without mention of fluctuations (15) Normochromic normocytic anemia: (16) Orthostatic hypotension: (17) Hypoglycemia: PLAN: Plan 1. Continue therapy 2. Adjustments were made to the insulin regimen and the SSI was increased to a medium scale. 3. Check a BMP in the AM. If creatinine and serum bicarb are stable will likely increase Jardiance to 25 mg daily for better blood sugar control. 4. Decrease Remeron to 15 mg p.o. nightly 5. I suspect he has PD that was made worse with medication. tells me that he has resting tremors of the hands for about a year now. Also has had a shuffling gait and difficulty with swallowing. ST feels the findings on the MBS are due to probable PD. He has not been on treatment. Will hold off on Sinemet for a few more days to let the Paxil and Remeron wash out and if he is still having Parkinson's sx will start Sinemet. 6. Will need to follow up with neurology following DC from rehab. 7. Plan voiding trial on Wednesday. Repeat orthostatics on Wed AM. 8. Repeat UA today showed 0-5 WBCs and no bacteria. There are a few red blood cells. He grew 80,000-100,000 colonies of Enterococcus faecalis on the urine culture but is asymptomatic, afebrile and there are only 0-5 WBCs. No indication to treat at this time. Charges/Coding Visit Charges Inpatient E&M: 17304 Subs Hosp L2
[2024-07-24 11:36] LABS: Bedside Glucose 202 mg/dL (74-106)
[2024-07-24 11:54] LABS: Bacteria 0 SEEN /hpf (None Seen); Mucous, Urine 0 SEEN /hpf (<or=2+); Squamous Epithelial Cells - UA 0 SEEN /hpf (0-5)
[2024-07-24 11:59] LABS: Color, Urine Yellow (Yellow); Glucose, Dipstick 1000 mg/dl (Normal); Ketone-Dipstick Negative (Negative); Leukocyte Esterase-Dipstick 25 /ul (Negative); Nitrite-Dipstick Negative (Negative); Occult Blood-Urine 150 /ul (Negative); Protein-Dipstick 30 mg/dl (Negative); Urine Bilirubin Dipstick Negative (Negative); Urine Clarity Clear (Clear); Urine Urobilinogen Normal (Normal)
[2024-07-24] MEDS: Insulin Lispro 100 UNIT/ML INSULN.PEN 14 UNIT SC (12:05)
[2024-07-24 12:15] VITALS: BP 128/59; BP 141/57; BP 142/67; PULSE 69; PULSE 71; PULSE 83
[2024-07-24 12:16] LABS: Red Blood Cells-Urine 5-10 SEEN /hpf (0-5)
[2024-07-24 12:17] LABS: White Blood Cells 0-5 SEEN /hpf (0-5)
--- NOTE | 2024-07-24 12:42 | CASEMGMT ---
Social Work IDT met with patient for Team meeting. Attempted to call , but call dropped. Pt denied calling again. Discussed patient's progress in PT/OT/SN/ST. Pt noticeably tired during meeting, staring off and less energetic. Dr to decrease Remeron dose tonight. discussed pt having some features of Parkinson's disease, which were exacerbated by medications pt was taking upon admission. Dr will continue to follow. Pt lives at home with his . Pt is ModA for tasks, has mild cognitive impairment, and swallowing precautions. SW to ensure to care for pt at DC. SW will continue to follow for DC planning and support. Will ReTeam weekly. Ruba Nicole AUTOMOTIVE FUEL INJECTION SERVICER MOTOR AND GENERATOR ASSEMBLER
[2024-07-24 17:00] LABS: Bedside Glucose 213 mg/dL (74-106)
[2024-07-24] MEDS: Insulin Lispro 100 UNIT/ML INSULN.PEN 16 UNIT SC (17:22)
[2024-07-24] MEDS: Tamsulosin HCl 0.4 MG Capsule PO (17:23)
[2024-07-24 18:00] VITALS: BP 115/66; PULSE 73; RESP 16; TEMP 36.8; O2SAT 99
[2024-07-24] MEDS: Atorvastatin Calcium 80 MG Tablet PO (21:18)
[2024-07-24] MEDS: Mirtazapine 15 MG Tablet PO (21:18)
[2024-07-24] MEDS: Insulin Glargine-YFGN 100 UNIT/ML Pen 16 UNIT SC (21:24)
[2024-07-24 22:02] LABS: Bedside Glucose 198 mg/dL (74-106)
[2024-07-25 05:47] LABS: Hematocrit 31.4 % (40-54); Hemoglobin 10.2 g/dL (13.0-16.5)
[2024-07-25 06:00] VITALS: BP 134/57; PULSE 77; RESP 15; TEMP 36.7; O2SAT 93
[2024-07-25] MEDS: Levothyroxine 75 MCG Tablet PO (06:19)
[2024-07-25] MEDS: Acetaminophen 500 MG Tablet 1000 MG PO ×3 (06:19→21:18)
[2024-07-25 06:27] LABS: Anion Gap 12 (5-15); BUN 34 mg/dL (4-19); BUN/Creat Ratio 22.8 RATIO (10-20); Calcium,Total 8.8 mg/dL (7.6-11.0); Carbon Dioxide 24.4 mmol/L (21.0-32.0); Chloride 106 mmol/L (98-108); Creatinine, Serum 1.47 mg/dL (0.70-1.20); EST Glomerular Filtration Rate 49 (>60); Estimated Creatinine Clearance 40.42 ml/min (50-250); Glucose 180 mg/dL (70-99); Potassium 4.4 mmol/L (3.3-5.1); Sodium Level 142 mmol/L (133-145)
[2024-07-25 06:50] VITALS: O2SAT 96
[2024-07-25] MEDS: Insulin Lispro 100 UNIT/ML INSULN.PEN SC ×3 (07:10→17:00)
[2024-07-25 07:35] LABS: Bedside Glucose 185 mg/dL (74-106)
[2024-07-25] MEDS: guaiFENesin 600 MG Tablet PO ×2 (08:36→21:18)
[2024-07-25] MEDS: Carvedilol 3.125 MG TABLET PO ×2 (08:36→16:59)
[2024-07-25] MEDS: Polyethylene Glycol 3350 17 GM PACKET PO (08:36)
[2024-07-25] MEDS: Senna/Docusate Sodium 1 Tablet 2 TABLET PO (08:36)
[2024-07-25] MEDS: Ezetimibe 10 MG Tablet PO (08:36)
[2024-07-25] MEDS: Niacin SA 500 MG Tablet PO ×2 (08:36→21:18)
[2024-07-25] MEDS: Juven (unflavored) Packet 1 PACKET PO ×2 (08:36→17:00)
[2024-07-25] MEDS: amLODIPine 5 MG Tablet PO (08:36)
[2024-07-25] MEDS: Empagliflozin 10 MG Tablet PO (08:36)
[2024-07-25] MEDS: Calcium (Elemental) 500 MG Tablet PO (08:36)
[2024-07-25] MEDS: Insulin Lispro 100 UNIT/ML INSULN.PEN 14 UNIT SC ×2 (08:37→12:11)
[2024-07-25] MEDS: Gabapentin 100 MG Capsule PO ×2 (08:40→21:18)
[2024-07-25 08:48] VITALS: BP 121/51; PULSE 75
--- NOTE | 2024-07-25 09:58 | PCM.PROGNOTE ---
Subjective Subjective Afebrile Blood pressure over the past 24 hours has ranged from 121/51 to 154/52. Heart rate is within normal limits. Maintaining appropriate oxygen saturation on room air while awake. Good appetite. Good fluid intake. Blood sugar record was reviewed. Hemoglobin today is 10.2, down from 11 on 07/20/2024. Sodium is 142 and the potassium is 4.4. BUN is stable at 34 and the creatinine is 1.47 which is within his baseline. Calcium is normal at 8.8. Serum bicarb is normal. Ace tells me that he did not sleep well last night. Had a hard time falling asleep......He wore the sling last night and this may have had something to do with it. He is more alert today than he usually is in the AM. PT still notes shuffle with walking. Ace denies lightheadedness, chest pain, shortness of breath, cough, abdominal pain, suprapubic pain and calf pain. Objective Data Objective Data Vital Signs: Vital Signs Temp Pulse Resp BP Pulse Ox O2 Del Method O2 Flow Rate 98.0 F 75 15 121/51 H 96 Room Air 2 07/25/24 06:00 07/25/24 08:48 07/25/24 06:00 07/25/24 08:48 07/25/24 06:50 07/25/24 06:50 07/22/24 06:00 FiO2 21 07/20/24 22:42 Oxygen Flow Rate (L/min) 2 Oxygen Delivery Method Room Air Weight: 149 lb 11.102 oz Body Mass Index (BMI) 22.1 Intake & Output: Intake and Output for Last 24 Hours 07/23/24 07/24/24 07/25/24 23:59 23:59 23:59 Intake Total 1120 / 1120 1620 / 1720 340 / 340 Output Total 1150 / 1150 2300 / 2700 700 / 700 Balance -30 / -30 -680 / -980 -360 / -360 Lab / Micro Data 07/25/24 05:19 07/25/24 05:19 Labs: Laboratory Results - last 24 hr 07/24/24 11:18: POC Glucose 202 H 07/24/24 11:45: Urine Color Yellow, Urine Clarity Clear, Urine pH 8.0, Ur Specific [place] 1.010, Urine Protein 30 H, Urine Glucose (UA) 1000 H, Urine Ketones Negative, Urine Occult Blood 150 H, Urine Nitrite Negative, Urine Bilirubin Negative, Urine Urobilinogen Normal, Ur Leukocyte Esterase 25 H, Urine RBC 5-10 SEEN, Urine WBC 0-5 SEEN, Ur Squamous Epith Cells 0 SEEN, Urine Bacteria 0 SEEN, Urine Mucus 0 SEEN 07/24/24 16:41: POC Glucose 213 H 07/24/24 21:11: POC Glucose 198 H 07/25/24 05:19: Hgb 10.2 L, Hct 31.4 L, Sodium 142, Potassium 4.4, Chloride 106, Carbon Dioxide 24.4, Anion Gap 12, BUN 34 H, Creatinine 1.47 H, Estim Creat Clear Calc 40.42 L, Est GFR (MDRD) Non-Af 49 L, BUN/Creatinine Ratio 22.8 H, Glucose 180 H, Calcium 8.8 07/25/24 07:08: POC Glucose 185 H Micro: Microbiology 07/19/24 18:10 Urine Catheter - Catheter Urine Culture - Final Enterococcus faecalis Physical Exam Const alert Constitutional Narrative: pleasant General Appearance: cooperative Resp Resp Narrative: CTA anterior and lateral. Not coughing. No conversational dyspnea. Cardio regular rate, regular rhythm and no rub Cardio Narrative: Occasional ectopic. He has a 1-2/6 JOSE at the second RICS. GI normal to inspection, nondistended, normoactive bowel sounds, soft to palpation and non-tender GI Narrative: mild tympany in the lower abd Extremity no calf tenderness and no pedal edema Assessment & Plan Assessment/Plan (1) Debility: (2) Subdural hematoma, acute: (3) Multiple rib fractures involving four or more ribs: (4) Scalp laceration: QUALIFIERS: Encounter type: subsequent encounter Qualified Code(s): S01.01XD - Laceration without foreign body of scalp, subsequent encounter (5) Scapula fracture: QUALIFIERS: Encounter type: subsequent encounter Scapula location: unspecified part of scapula Fracture type: closed (6) RLS (restless legs syndrome): (7) Weight loss: (8) Dysphagia: QUALIFIERS: Dysphagia type: unspecified Qualified Code(s): R13.10 - Dysphagia, unspecified (9) Type 2 diabetes mellitus: QUALIFIERS: Diabetes mellitus complication status: with kidney complications Diabetes mellitus complication detail: with chronic kidney disease Diabetes mellitus buttermaker helper insulin use: with alf use Chronic kidney disease stage: stage 3 (moderate) Chronic kidney disease stage 3 subtype: stage 3a (GFR 45-59) Qualified Code(s): E11.22 - Type 2 diabetes mellitus with diabetic chronic kidney disease; N18.31 - Chronic kidney disease, stage 3a; Z79.4 - USP (current) use of insulin (10) Benign hypertension: (11) Essential hypertension: (12) Chronic renal failure, stage 3a: (13) Parkinsons disease: QUALIFIERS: Dyskinesia presence: unspecified whether dyskinesia Fluctuating manifestations: unspecified whether manifestations fluctuate Qualified Code(s): G20.A1 - Parkinson's disease without dyskinesia, without mention of fluctuations (14) Normochromic normocytic anemia: (15) Urinary retention: PLAN: Plan 1. Continue therapy 2. Increase Jardiance to 25 mg p.o. daily. No change in the insulin regimen today as I expect the increase in Jardiance will drop the blood sugar somewhat. 3. Increase Remeron to 22.5 mg at HS. 4. Start Sinemet 100/10 TID AC and HS 5. Recheck orthostatics in the AM 6. Voiding trial tomorrow Charges/Coding Visit Charges Inpatient E&M: 19235 Subs Hosp L1
[2024-07-25] MEDS: Carbidopa/Levodopa 10/100 Tablet PO ×3 (12:11→21:18)
[2024-07-25 12:21] LABS: Bedside Glucose 197 mg/dL (74-106)
[2024-07-25 16:36] LABS: Bedside Glucose 186 mg/dL (74-106)
[2024-07-25] MEDS: Tamsulosin HCl 0.4 MG Capsule PO (16:59)
[2024-07-25] MEDS: Insulin Lispro 100 UNIT/ML INSULN.PEN 16 UNIT SC (17:00)
[2024-07-25 17:26] VITALS: BP 134/60; PULSE 71; RESP 17; TEMP 36.8; O2SAT 94
[2024-07-25] MEDS: Mirtazapine 15 MG Tablet 22.5 MG PO (21:18)
[2024-07-25] MEDS: Atorvastatin Calcium 80 MG Tablet PO (21:18)
[2024-07-25] MEDS: Insulin Glargine-YFGN 100 UNIT/ML Pen 16 UNIT SC (21:21)
[2024-07-25 21:52] LABS: Bedside Glucose 133 mg/dL (74-106)
[2024-07-26] MEDS: Acetaminophen 500 MG Tablet 1000 MG PO ×3 (05:20→21:44)
[2024-07-26] MEDS: Levothyroxine 75 MCG Tablet PO (05:20)
[2024-07-26 06:00] VITALS: BP 122/56; BP 133/55; BP 147/62; BP 82/55; PULSE 68; PULSE 72; RESP 18; TEMP 36.8; O2SAT 95; BMI 22.0
[2024-07-26] MEDS: Carbidopa/Levodopa 10/100 Tablet PO ×4 (06:41→21:46)
[2024-07-26 07:26] LABS: Bedside Glucose 136 mg/dL (74-106)
[2024-07-26] MEDS: Niacin SA 500 MG Tablet PO ×2 (07:58→21:45)
[2024-07-26] MEDS: Polyethylene Glycol 3350 17 GM PACKET PO (07:58)
[2024-07-26] MEDS: Senna/Docusate Sodium 1 Tablet 2 TABLET PO ×2 (07:58→21:45)
[2024-07-26] MEDS: Ezetimibe 10 MG Tablet PO (07:58)
[2024-07-26] MEDS: guaiFENesin 600 MG Tablet PO ×2 (07:58→21:45)
[2024-07-26] MEDS: Carvedilol 3.125 MG TABLET PO ×2 (07:58→16:46)
[2024-07-26] MEDS: Calcium (Elemental) 500 MG Tablet PO (07:58)
[2024-07-26] MEDS: Juven (unflavored) Packet 1 PACKET PO ×2 (07:58→16:45)
[2024-07-26] MEDS: Empagliflozin 25 MG Tablet PO (07:58)
[2024-07-26] MEDS: amLODIPine 5 MG Tablet PO (07:58)
[2024-07-26] MEDS: Insulin Lispro 100 UNIT/ML INSULN.PEN 14 UNIT SC ×2 (07:59→12:04)
[2024-07-26] MEDS: Gabapentin 100 MG Capsule PO ×2 (08:01→21:45)
[2024-07-26 12:20] LABS: Bedside Glucose 146 mg/dL (74-106)
[2024-07-26] MEDS: Tamsulosin HCl 0.4 MG Capsule PO (16:45)
[2024-07-26] MEDS: Insulin Lispro 100 UNIT/ML INSULN.PEN 16 UNIT SC (16:46)
[2024-07-26] MEDS: Insulin Lispro 100 UNIT/ML INSULN.PEN SC (16:48)
[2024-07-26 17:07] LABS: Bedside Glucose 182 mg/dL (74-106)
[2024-07-26 17:32] VITALS: BP 144/60; PULSE 69; RESP 18; TEMP 36.8; O2SAT 97
[2024-07-26] MEDS: Insulin Glargine-YFGN 100 UNIT/ML Pen 16 UNIT SC (21:44)
[2024-07-26] MEDS: Atorvastatin Calcium 80 MG Tablet PO (21:46)
[2024-07-26] MEDS: Mirtazapine 15 MG Tablet 22.5 MG PO (21:46)
[2024-07-26 22:22] LABS: Bedside Glucose 124 mg/dL (74-106)
[2024-07-27 05:28] LABS: Mucous, Urine 0 SEEN /hpf (<or=2+); Red Blood Cells-Urine 0 SEEN /hpf (0-5); Squamous Epithelial Cells - UA 0 SEEN /hpf (0-5); White Blood Cells 0 SEEN /hpf (0-5)
[2024-07-27 06:00] VITALS: BP 129/64; PULSE 82; RESP 15; TEMP 36.6; O2SAT 95
[2024-07-27 06:43] LABS: Color, Urine Yellow (Yellow); Glucose, Dipstick 1000 mg/dl (Normal); Leukocyte Esterase-Dipstick Negative /ul (Negative); Nitrite-Dipstick Negative (Negative); Occult Blood-Urine Negative /ul (Negative); Urine Bilirubin Dipstick Negative (Negative); Urine Clarity Clear (Clear); Urine Urobilinogen Normal (Normal); Urine pH 6.5 (5.0 - 8.0)
[2024-07-27] MEDS: Carbidopa/Levodopa 10/100 Tablet PO ×4 (06:43→20:33)
[2024-07-27] MEDS: Acetaminophen 500 MG Tablet 1000 MG PO ×3 (06:43→20:33)
[2024-07-27] MEDS: Levothyroxine 75 MCG Tablet PO (06:43)
[2024-07-27 07:14] LABS: Bedside Glucose 120 mg/dL (74-106)
[2024-07-27] MEDS: guaiFENesin 600 MG Tablet PO ×2 (07:57→20:33)
[2024-07-27] MEDS: Empagliflozin 25 MG Tablet PO (07:57)
[2024-07-27] MEDS: Polyethylene Glycol 3350 17 GM PACKET PO (07:57)
[2024-07-27] MEDS: Carvedilol 3.125 MG TABLET PO ×2 (07:57→16:48)
[2024-07-27] MEDS: Senna/Docusate Sodium 1 Tablet 2 TABLET PO ×2 (07:57→20:33)
[2024-07-27] MEDS: amLODIPine 5 MG Tablet PO (07:57)
[2024-07-27] MEDS: Niacin SA 500 MG Tablet PO ×2 (07:57→20:33)
[2024-07-27] MEDS: Calcium (Elemental) 500 MG Tablet PO (07:57)
[2024-07-27] MEDS: Ezetimibe 10 MG Tablet PO (07:57)
[2024-07-27] MEDS: Juven (unflavored) Packet 1 PACKET PO ×2 (07:58→16:50)
[2024-07-27] MEDS: Gabapentin 100 MG Capsule PO ×2 (08:00→20:33)
[2024-07-27] MEDS: Insulin Lispro 100 UNIT/ML INSULN.PEN 14 UNIT SC (08:06)
[2024-07-27 08:27] LABS: Ketone-Dipstick 5 mg/dl (Negative); Protein-Dipstick 30 mg/dl (Negative)
[2024-07-27 08:47] LABS: Bacteria 2+ /hpf (None Seen)
--- NOTE | 2024-07-27 10:09 | PN_ITS ---
Subjective Subjective Afebrile VSS - orthostatics + yesterday. The blood pressure dropped from 133/55 with a heart rate of 68 lying down to 150 22/56 with a heart rate of 72 sitting up to 82/55 standing. Maintaining appropriate oxygen saturation on RA Oral intake - FOOD good FLUIDS fair to good Weight has been stable over the past week on rehab. ? the wt of 164 on 07/10/24. Stable at 149 currently. The blood sugar record was reviewed. Blood sugars are well-controlled with the exception of the blood sugar at suppertime which is elevated into the 180s. No hypoglycemia Discussed with nursing - not able to void on his own and PVR's are very increased. Kaplan reinserted last night. Impulsive, not always using the call light and has been up to the BR without calling the nurse. Reviewed the THERAPY notes Medication list reviewed. Did not sleep well last night due to being up for urine retention and straight cath's. He had no urge to go and bladder scans were 479, 601 ane 802. Foely was re-inserted. Denies lightheadedness, cephalgia, shortness of breath, chest pain, palpitations, abdominal pain, suprapubic pain and calf pain. He is frustrated as having to have the catheter replaced. Objective Data Objective Data Vital Signs: Vital Signs Temp Pulse Resp BP Pulse Ox O2 Del Method O2 Flow Rate 97.8 F 82 15 129/64 H 95 Room Air 2 07/27/24 06:00 07/27/24 06:00 07/27/24 06:00 07/27/24 06:00 07/27/24 06:00 07/27/24 06:00 07/22/24 06:00 FiO2 21 07/20/24 22:42 Oxygen Flow Rate (L/min) 2 Oxygen Delivery Method Room Air Weight: 149 lb 2 oz Body Mass Index (BMI) 22.0 Intake & Output: Intake and Output for Last 24 Hours 07/25/24 07/26/24 07/27/24 23:59 23:59 23:59 Intake Total 1620 / 1860 1120 / 1120 Output Total 1700 / 1700 1550 / 1550 500 / 500 Balance -80 / 160 -430 / -430 -500 / -500 Lab / Micro Data 07/28/24 05:28 07/28/24 05:28 Labs: Laboratory Results - last 24 hr 07/26/24 12:02: POC Glucose 146 H 07/26/24 16:43: POC Glucose 182 H 07/26/24 21:43: POC Glucose 124 H 07/27/24 05:20: Urine Color Yellow, Urine Clarity Clear, Urine pH 6.5, Ur Specific [place] 1.010, Urine Protein 30 H, Urine Glucose (UA) 1000 H, Urine Ketones 5 H, Urine Occult Blood Negative, Urine Nitrite Negative, Urine Bilirubin Negative, Urine Urobilinogen Normal, Ur Leukocyte Esterase Negative, Urine RBC 0 SEEN, Urine WBC 0 SEEN, Ur Squamous Epith Cells 0 SEEN, Urine Bacteria 2+, Urine Mucus 0 SEEN 07/27/24 06:46: POC Glucose 120 H Micro: Microbiology 07/25/24 12:30 Stool Stool Occult Blood (LEXI) - Final 07/19/24 18:10 Urine Catheter - Catheter Urine Culture - Final Enterococcus faecalis Physical Exam Const Constitutional Narrative: A little drowsy today. Resp Resp Narrative: CTA anterior and lateral. Not coughing. No conversational dyspnea. Cardio regular rate, regular rhythm and no rub Cardio Narrative: Occasional ectopic. He has a 1-2/6 JOSE at the second RICS. GI normal to inspection, nondistended, normoactive bowel sounds, soft to palpation and non-tender Extremity no calf tenderness and no pedal edema Assessment & Plan Assessment/Plan (1) Debility: (2) Subdural hematoma, acute: (3) Multiple rib fractures involving four or more ribs: (4) Scalp laceration: QUALIFIERS: Encounter type: subsequent encounter Qualified Code(s): S01.01XD - Laceration without foreign body of scalp, subsequent encounter (5) Scapula fracture: QUALIFIERS: Encounter type: subsequent encounter Scapula location: unspecified part of scapula Fracture type: closed (6) RLS (restless legs syndrome): (7) Weight loss: (8) Dysphagia: QUALIFIERS: Dysphagia type: unspecified Qualified Code(s): R13.10 - Dysphagia, unspecified (9) Type 2 diabetes mellitus: QUALIFIERS: Diabetes mellitus complication status: with kidney complications Diabetes mellitus complication detail: with chronic kidney disease Diabetes mellitus skilled nursing insulin use: with skilled nursing use Chronic kidney disease stage: stage 3 (moderate) Chronic kidney disease stage 3 subtype: stage 3a (GFR 45-59) Qualified Code(s): E11.22 - Type 2 diabetes mellitus with diabetic chronic kidney disease; N18.31 - Chronic kidney disease, stage 3a; Z79.4 - halfway (current) use of insulin (10) Benign hypertension: (11) Essential hypertension: (12) Chronic renal failure, stage 3a: (13) Parkinsons disease: QUALIFIERS: Dyskinesia presence: unspecified whether dyskinesia F luctuating manifestations: unspecified whether manifestations fluctuate Q ualified Code(s): G20.A1 - Parkinson's disease without dyskinesia, without mention of fluctuations (14) Normochromic normocytic anemia: (15) Urinary retention: PLAN: Plan 1. Continue therapy 2. Check a CBC with differential and BMP in the a.m. 3. Discontinue tamsulosin secondary to severe orthostatic hypotension. Will need to follow up with urology. Orthostatic hypotension is likely related to autonomic neuropathy due to PD. Suspect this is the reason for the urine retention as well. 4. Pain is adequately controlled with scheduled Tylenol. Has not had a tramadol since 07/20/2024. Charges/Coding Visit Charges Inpatient E&M: 37457 Subs Hosp L1
[2024-07-27 12:00] LABS: Bedside Glucose 171 mg/dL (74-106)
[2024-07-27] MEDS: Insulin Lispro 100 UNIT/ML INSULN.PEN 16 UNIT SC ×2 (12:34→16:49)
[2024-07-27 17:21] LABS: Bedside Glucose 179 mg/dL (74-106)
[2024-07-27 17:42] VITALS: BP 121/58; PULSE 70; RESP 16; TEMP 36.8; O2SAT 97
[2024-07-27] MEDS: Mirtazapine 15 MG Tablet 22.5 MG PO (20:33)
[2024-07-27] MEDS: Atorvastatin Calcium 80 MG Tablet PO (20:33)
[2024-07-27] MEDS: Insulin Glargine-YFGN 100 UNIT/ML Pen 16 UNIT SC (21:46)
[2024-07-27 22:10] LABS: Bedside Glucose 185 mg/dL (74-106)
[2024-07-28 05:54] LABS: Absolute Neutrophil Count 3.8 X10^3/uL (2.0-7.7); Basophil# 0.03 X10^3/uL; Basophil% 0.5 % (0-1); Eosinophil# 0.23 X10^3/uL; Eosinophils% 3.9 % (0-5); Hemoglobin 10.8 g/dL (13.0-16.5); Lymphocyte % 21.8 % (19-41); Mean Corp Hgb Conc 32.7 g/dL (32-36); Mean Corpuscular Hgb 32.3 pg (27.0-32.0); Mean Corpuscular Volume 98.8 fL (80-94); Mean Platelet Vol. 9.7 fl (6.2-12.0); Monocyte% 10.1 % (0-10); NRBC Flagged by Analyzer 0 % (0-5); Neutrophil # 3.76 X10^3/uL (2.7-7.7); Neutrophil % 63.2 % (47-70); Platelet Count 332 K/mm3 (150-450); RBC Distribution Width CV 13.2 % (11.6-14.6); Red Blood Count 3.34 M/mm3 (4.6-6.2)
[2024-07-28 06:14] VITALS: BP 113/59; PULSE 79; RESP 16; TEMP 36.9; O2SAT 94
[2024-07-28 06:20] LABS: Anion Gap 11 (5-15); BUN 40 mg/dL (4-19); BUN/Creat Ratio 28.4 RATIO (10-20); Calcium,Total 8.8 mg/dL (7.6-11.0); Chloride 107 mmol/L (98-108); EST Glomerular Filtration Rate 52 (>60); Estimated Creatinine Clearance 42.28 ml/min (50-250); Glucose 153 mg/dL (70-99); Potassium 4.4 mmol/L (3.3-5.1); Sodium Level 140 mmol/L (133-145)
[2024-07-28] MEDS: Carbidopa/Levodopa 10/100 Tablet PO ×3 (06:21→16:25)
[2024-07-28] MEDS: Acetaminophen 500 MG Tablet 1000 MG PO ×3 (06:21→20:39)
[2024-07-28 06:49] LABS: Bedside Glucose 162 mg/dL (74-106)
[2024-07-28] MEDS: Calcium (Elemental) 500 MG Tablet PO (07:50)
[2024-07-28] MEDS: Senna/Docusate Sodium 1 Tablet 2 TABLET PO ×2 (07:50→20:39)
[2024-07-28] MEDS: Ezetimibe 10 MG Tablet PO (07:50)
[2024-07-28] MEDS: Juven (unflavored) Packet 1 PACKET PO ×2 (07:50→16:27)
[2024-07-28] MEDS: Carvedilol 3.125 MG TABLET PO ×2 (07:50→16:25)
[2024-07-28] MEDS: Empagliflozin 25 MG Tablet PO (07:50)
[2024-07-28] MEDS: Polyethylene Glycol 3350 17 GM PACKET PO (07:50)
[2024-07-28] MEDS: guaiFENesin 600 MG Tablet PO ×2 (07:50→20:38)
[2024-07-28] MEDS: Niacin SA 500 MG Tablet PO ×2 (07:50→20:38)
[2024-07-28] MEDS: Insulin Lispro 100 UNIT/ML INSULN.PEN 14 UNIT SC (07:51)
[2024-07-28] MEDS: amLODIPine 5 MG Tablet PO (07:51)
[2024-07-28] MEDS: Gabapentin 100 MG Capsule PO ×2 (07:52→20:39)
--- NOTE | 2024-07-28 09:19 | PCM.PROGNOTE ---
Subjective Subjective Afebrile Heart rate is within normal limits Blood pressure is well-controlled. Maintaining appropriate oxygen saturation on room air. Repeat orthostatics ordered but, no done yet. The blood sugar record was reviewed. Fasting blood sugar today is 162. The at bedtime blood sugar was 185. All blood sugars for the past 24 hours have been less than 200 with no hypoglycemia. All lab drawn this morning was personally reviewed. The white blood cell count is normal at 6.0 with an unremarkable differential.. Hemoglobin is stable at 10.8. Platelets are within normal limits. Sodium is 140 and the potassium is stable at 4.4. Serum bicarbonate is normal at 22 and he is tolerating the increased dose of Jardiance with no metabolic acidosis. Creatinine is stable and is 1.4 today. Tolerating Sinemet with no dyskinetic movements. Denies feeling lightheaded today and also denies CP, SOB, Palpitations, N/V/abd pain. Tells me the tremors are less. Got up once last night to use RR and then was able to go back to sleep. Feels rested today. Tells me his swallowing is better and he denies cough. Objective Data Objective Data Vital Signs: Vital Signs Temp Pulse Resp BP Pulse Ox O2 Del Method O2 Flow Rate 98.4 F 79 16 113/59 L 94 Room Air 2 07/28/24 06:14 07/28/24 06:14 07/28/24 06:14 07/28/24 06:14 07/28/24 06:14 07/28/24 06:14 07/22/24 06:00 FiO2 21 07/20/24 22:42 Oxygen Flow Rate (L/min) 2 Oxygen Delivery Method Room Air Weight: 149 lb 2 oz Body Mass Index (BMI) 22.0 Intake & Output: Intake and Output for Last 24 Hours 07/26/24 07/27/24 07/28/24 23:59 23:59 23:59 Intake Total 1120 / 1120 1320 / 1320 300 / 300 Output Total 1550 / 1550 1375 / 1375 900 / 900 Balance -430 / -430 -55 / -55 -600 / -600 Lab / Micro Data 07/28/24 05:28 07/28/24 05:28 Labs: Laboratory Results - last 24 hr 07/27/24 11:43: POC Glucose 171 H 07/27/24 16:46: POC Glucose 179 H 07/27/24 21:46: POC Glucose 185 H 07/28/24 05:28: WBC 6.0, RBC 3.34 L, Hgb 10.8 L, Hct 33.0 L, MCV 98.8 H, MCH 32.3 H, MCHC 32.7, RDW Std Deviation 47.0 H, RDW Coeff of Cy 13.2, Plt Count 332, MPV 9.7, Immature Gran % (Auto) 0.500, Neut % (Auto) 63.2, Lymph % (Auto) 21.8, [place] % (Auto) 10.1 H, Eos % (Auto) 3.9, Baso % (Auto) 0.5, Absolute Neuts (auto) 3.8, Absolute Lymphs (auto) 1.30, Nucleated RBC % 0, Sodium 140, Potassium 4.4, Chloride 107, Carbon Dioxide 22.0, Anion Gap 11, BUN 40 H, Creatinine 1.40 H, Estim Creat Clear Calc 42.28 L, Est GFR (MDRD) Non-Af 52 L, BUN/Creatinine Ratio 28.4 H, Glucose 153 H, Calcium 8.8 07/28/24 06:28: POC Glucose 162 H Micro: Microbiology 07/25/24 12:30 Stool Stool Occult Blood (LEXI) - Final 07/19/24 18:10 Urine Catheter - Catheter Urine Culture - Final Enterococcus faecalis Physical Exam Const Constitutional Narrative: Very alert today....slept better last night General Appearance: cooperative Eyes Eyes Narrative: blinking more oftent now Neck supple Neck Narrative: able to hold his head up well now and is not as slouched. Resp Resp Narrative: CTA anterior and lateral. Not coughing. No conversational dyspnea. Cardio regular rate, regular rhythm and no rub Cardio Narrative: Occasional ectopic. He has a 1-2/6 JOSE at the second RICS. GI normal to inspection, nondistended, normoactive bowel sounds, soft to palpation and non-tender GI Narrative: Having regular BM's and no longer is c/o constipation. Extremity no calf tenderness and no pedal edema Skin Rashes: no rashes Neuro Neuro Narrative: Speech is more crisp, more facial expression, tremor is significantly decreased. Doing better with ambulation with the quad cane. Alert during the day. Urine retention and orthostatic hypotension are more likely than not due to autonomic neuropathy due to PD. Psych cooperative Psych Narrative: Denies feeling depressed. Sleeping well at night. Good appetite. Motivated to get better and get home. Always pleasant and cooperative. Calm and making good eye contact with me. engaged in the conversation. Appearance: appropriate Assessment & Plan Assessment/Plan (1) Debility: (2) Subdural hematoma, acute: (3) Multiple rib fractures involving four or more ribs: (4) Scalp laceration: QUALIFIERS: Encounter type: subsequent encounter Qualified Code(s): S01.01XD - Laceration without foreign body of scalp, subsequent encounter (5) Scapula fracture: QUALIFIERS: Encounter type: subsequent encounter Scapula location: unspecified part of scapula Fracture type: closed (6) RLS (restless legs syndrome): (7) Weight loss: (8) Dysphagia: QUALIFIERS: Dysphagia type: unspecified Qualified Code(s): R13.10 - Dysphagia, unspecified (9) Type 2 diabetes mellitus: QUALIFIERS: Diabetes mellitus complication status: with kidney complications Diabetes mellitus complication detail: with chronic kidney disease Diabetes mellitus terminal clerk insulin use: with terminal clerk use Chronic kidney disease stage: stage 3 (moderate) Chronic kidney disease stage 3 subtype: stage 3a (GFR 45-59) Qualified Code(s): E11.22 - Type 2 diabetes mellitus with diabetic chronic kidney disease; N18.31 - Chronic kidney disease, stage 3a; Z79.4 - watermelon harvesting supervisor (current) use of insulin (10) Benign hypertension: (11) Essential hypertension: (12) Chronic renal failure, stage 3a: (13) Parkinsons disease: QUALIFIERS: Dyskinesia presence: unspecified whether dyskinesia Fluctuating manifestations: unspecified whether manifestations fluctuate Qualified Code(s): G20.A1 - Parkinson's disease without dyskinesia, without mention of fluctuations (14) Normochromic normocytic anemia: (15) Urinary retention: (16) Autonomic neuropathy: (17) Orthostatic hypotension: PLAN: Plan 1. Continue therapy 2. I explained to him what is likely causing the urine retention and he understood. He is willing to follow up with urology but, I think the urine retention is due to autonomic neuropathy and there is little that can be done. He did not respond to Flomax and had no urge to urinate. He has orthostatic hypotension and the FLomax and Cardura made it much worse. 3. Agreeable to following up with Dr. Arndt as an OP for management of PD. Charges/Coding Visit Charges Inpatient E&M: 18373 Subs Hosp L1
[2024-07-28 10:14] VITALS: BP 122/60; BP 144/63; BP 99/55; PULSE 72; PULSE 85
[2024-07-28] MEDS: Insulin Lispro 100 UNIT/ML INSULN.PEN 16 UNIT SC ×2 (12:29→16:25)
[2024-07-28 12:53] LABS: Bedside Glucose 155 mg/dL (74-106)
[2024-07-28 16:49] LABS: Bedside Glucose 255 mg/dL (74-106)
[2024-07-28 17:07] VITALS: BP 156/62; PULSE 74; RESP 17; TEMP 36.9; O2SAT 100
[2024-07-28] MEDS: Insulin Glargine-YFGN 100 UNIT/ML Pen 16 UNIT SC (20:35)
[2024-07-28] MEDS: Mirtazapine 15 MG Tablet 22.5 MG PO (20:38)
[2024-07-28] MEDS: Atorvastatin Calcium 80 MG Tablet PO (20:39)
[2024-07-28 21:18] LABS: Bedside Glucose 325 mg/dL (74-106)
[2024-07-29] MEDS: Acetaminophen 500 MG Tablet 1000 MG PO ×3 (05:14→22:04)
[2024-07-29] MEDS: Carbidopa/Levodopa 10/100 Tablet PO ×3 (05:14→16:47)
[2024-07-29] MEDS: Levothyroxine 75 MCG Tablet PO (05:14)
[2024-07-29 05:23] VITALS: BP 128/72; PULSE 77; RESP 18; TEMP 36.8; O2SAT 95
[2024-07-29 06:39] LABS: Bedside Glucose 145 mg/dL (74-106)
[2024-07-29 07:49] VITALS: BP 126/51; PULSE 79
[2024-07-29] MEDS: Calcium (Elemental) 500 MG Tablet PO (07:49)
[2024-07-29] MEDS: amLODIPine 5 MG Tablet PO (07:49)
[2024-07-29] MEDS: Empagliflozin 25 MG Tablet PO (07:49)
[2024-07-29] MEDS: Senna/Docusate Sodium 1 Tablet 2 TABLET PO (07:49)
[2024-07-29] MEDS: Ezetimibe 10 MG Tablet PO (07:49)
[2024-07-29] MEDS: guaiFENesin 600 MG Tablet PO ×2 (07:49→22:05)
[2024-07-29] MEDS: Juven (unflavored) Packet 1 PACKET PO ×2 (07:49→16:47)
[2024-07-29] MEDS: Niacin SA 500 MG Tablet PO ×2 (07:50→22:05)
[2024-07-29] MEDS: Carvedilol 3.125 MG TABLET PO ×2 (07:50→16:47)
[2024-07-29] MEDS: Polyethylene Glycol 3350 17 GM PACKET PO (07:50)
[2024-07-29] MEDS: Gabapentin 100 MG Capsule PO ×2 (07:52→22:00)
[2024-07-29] MEDS: Insulin Lispro 100 UNIT/ML INSULN.PEN 14 UNIT SC (07:55)
[2024-07-29 11:53] LABS: Bedside Glucose 160 mg/dL (74-106)
[2024-07-29] MEDS: Insulin Lispro 100 UNIT/ML INSULN.PEN 16 UNIT SC ×2 (12:13→16:47)
[2024-07-29 17:55] VITALS: BP 143/64; PULSE 74; RESP 16; TEMP 36.7; O2SAT 99
[2024-07-29 18:11] LABS: Bedside Glucose 225 mg/dL (74-106)
[2024-07-29 21:40] LABS: Bedside Glucose 182 mg/dL (74-106)
[2024-07-29] MEDS: Insulin Glargine-YFGN 100 UNIT/ML Pen 16 UNIT SC (22:00)
[2024-07-29] MEDS: Mirtazapine 15 MG Tablet 22.5 MG PO (22:04)
[2024-07-29] MEDS: Atorvastatin Calcium 80 MG Tablet PO (22:05)
[2024-07-30] MEDS: Acetaminophen 500 MG Tablet 1000 MG PO ×3 (05:08→21:55)
[2024-07-30] MEDS: Levothyroxine 75 MCG Tablet PO (05:09)
[2024-07-30 05:12] VITALS: BP 141/60; PULSE 71; RESP 18; TEMP 36.8; O2SAT 96
[2024-07-30] MEDS: Carbidopa/Levodopa 10/100 Tablet PO ×3 (06:54→16:54)
[2024-07-30 07:07] LABS: Bedside Glucose 136 mg/dL (74-106)
[2024-07-30] MEDS: Juven (unflavored) Packet 1 PACKET PO ×2 (08:08→16:55)
[2024-07-30] MEDS: Insulin Lispro 100 UNIT/ML INSULN.PEN 14 UNIT SC (08:08)
[2024-07-30] MEDS: amLODIPine 5 MG Tablet PO (08:09)
[2024-07-30] MEDS: Empagliflozin 25 MG Tablet PO (08:09)
[2024-07-30] MEDS: Carvedilol 3.125 MG TABLET PO ×2 (08:09→16:54)
[2024-07-30] MEDS: Niacin SA 500 MG Tablet PO ×2 (08:09→21:55)
[2024-07-30] MEDS: Ezetimibe 10 MG Tablet PO (08:09)
[2024-07-30] MEDS: Calcium (Elemental) 500 MG Tablet PO (08:09)
[2024-07-30] MEDS: guaiFENesin 600 MG Tablet PO ×2 (08:09→21:55)
[2024-07-30] MEDS: Polyethylene Glycol 3350 17 GM PACKET PO (08:13)
[2024-07-30] MEDS: Gabapentin 100 MG Capsule PO ×2 (10:59→19:59)
[2024-07-30 11:24] LABS: Bedside Glucose 161 mg/dL (74-106)
[2024-07-30] MEDS: Insulin Lispro 100 UNIT/ML INSULN.PEN 16 UNIT SC ×2 (12:14→16:54)
[2024-07-30 13:14] VITALS: BP 123/51; PULSE 72
[2024-07-30 17:01] LABS: Bedside Glucose 181 mg/dL (74-106)
[2024-07-30 17:05] VITALS: BP 115/59; PULSE 69; RESP 17; TEMP 36.8; O2SAT 96
[2024-07-30 21:51] LABS: Bedside Glucose 118 mg/dL (74-106)
[2024-07-30] MEDS: Atorvastatin Calcium 80 MG Tablet PO (21:54)
[2024-07-30] MEDS: Senna/Docusate Sodium 1 Tablet 2 TABLET PO (21:55)
[2024-07-30] MEDS: Mirtazapine 15 MG Tablet 22.5 MG PO (21:56)
[2024-07-30] MEDS: Insulin Glargine-YFGN 100 UNIT/ML Pen 16 UNIT SC (21:57)
[2024-07-30 23:56] VITALS: BMI 22.0
[2024-07-31 06:00] VITALS: BP 156/69; PULSE 82; RESP 14; TEMP 36.9; O2SAT 96
[2024-07-31] MEDS: Acetaminophen 500 MG Tablet 1000 MG PO ×3 (06:35→20:32)
[2024-07-31] MEDS: Levothyroxine 75 MCG Tablet PO (06:35)
[2024-07-31] MEDS: Carbidopa/Levodopa 10/100 Tablet PO ×3 (06:35→16:21)
[2024-07-31 07:05] LABS: Bedside Glucose 139 mg/dL (74-106)
[2024-07-31] MEDS: guaiFENesin 600 MG Tablet PO ×2 (07:43→20:33)
[2024-07-31] MEDS: Ezetimibe 10 MG Tablet PO (07:44)
[2024-07-31] MEDS: Calcium (Elemental) 500 MG Tablet PO (07:44)
[2024-07-31] MEDS: Empagliflozin 25 MG Tablet PO (07:44)
[2024-07-31] MEDS: Polyethylene Glycol 3350 17 GM PACKET PO (07:44)
[2024-07-31] MEDS: Senna/Docusate Sodium 1 Tablet 2 TABLET PO ×2 (07:44→20:32)
[2024-07-31] MEDS: amLODIPine 5 MG Tablet PO (07:44)
[2024-07-31] MEDS: Gabapentin 100 MG Capsule PO ×2 (07:44→19:48)
[2024-07-31] MEDS: Carvedilol 3.125 MG TABLET PO ×2 (07:44→16:21)
[2024-07-31] MEDS: Niacin SA 500 MG Tablet PO ×2 (07:44→20:34)
[2024-07-31] MEDS: Insulin Lispro 100 UNIT/ML INSULN.PEN 14 UNIT SC (07:45)
--- NOTE | 2024-07-31 08:48 | PCM.PROGNOTE ---
Subjective Subjective Ace was seen on team rounds today. His Janessa was present in the room for rounds. They both had many questions about why the Kaplan catheter is necessary and why he cannot swallow well and these were answered to their satisfaction. Ace scored a 34/50 on the BCAT at admission to rehab and it was repeated today and is 36/50.....this seems to be his baseline. His manages the finances and his medications. Afebrile VSS -blood pressures over the weekend ranged from 115/59 to 143/64. The blood pressure this a.m. was 156/69. Heart rate is within normal limits. Maintaining appropriate oxygen saturation on RA Oral intake - FOOD good FLUIDS good The blood sugar record was reviewed. Blood sugars are under good control with no hypoglycemia. Supper blood sugar tends to be a little on the high side, but still less than 200. Discussed with nursing - no problems that need addressed Reviewed the THERAPY notes Medication list reviewed. He has no complaints today. Denies lightheadedness, CP, SOB, cough, N/V/Abd pain, suprapubic pain, calf pain. REcognizes that he has much less tremor and than he is ambulating better with no LOB. I explained to Ace about why the Kaplan is needed and gave him a handout about PD and the sx. He shared this with Janessa and neither one of them is able to connect why he has trouble swallowing, trouble with urine retention and difficulty walking. I suspect he had had PD for at least 1-2 years. I explained the sx again and why the Kaplan will likely always be needed.......I did offer to refer to a urologist. Had no improvement with Flomax and theb orthostatic hypotension got much worse. Objective Data Objective Data Vital Signs: Vital Signs Temp Pulse Resp BP Pulse Ox O2 Del Method O2 Flow Rate 98.4 F 82 14 156/69 H 96 Room Air 2 07/31/24 06:00 07/31/24 06:00 07/31/24 06:00 07/31/24 06:00 07/31/24 06:00 07/31/24 06:00 07/22/24 06:00 FiO2 21 07/20/24 22:42 Oxygen Flow Rate (L/min) 2 Oxygen Delivery Method Room Air Weight: 149 lb 2 oz Body Mass Index (BMI) 22.0 Intake & Output: Intake and Output for Last 24 Hours 07/29/24 07/30/24 07/31/24 23:59 23:59 23:59 Intake Total 1250 / 1250 1155 / 1155 540 / 540 Output Total 0 / 0 2250 / 2250 700 / 700 Balance -800 / -800 -1095 / -1095 -160 / -160 Lab / Micro Data 07/28/24 05:28 07/28/24 05:28 Labs: Laboratory Results - last 24 hr 07/30/24 11:01: POC Glucose 161 H 07/30/24 16:42: POC Glucose 181 H 07/30/24 21:29: POC Glucose 118 H 07/31/24 06:44: POC Glucose 139 H Micro: Microbiology 07/25/24 12:30 Stool Stool Occult Blood (LEXI) - Final 07/19/24 18:10 Urine Catheter - Catheter Urine Culture - Final Enterococcus faecalis Physical Exam Const alert and no apparent distress Constitutional Narrative: Sitting in the recliner at the bedside. Pleasant and making good eye contact with me. General Appearance: cooperative Resp normal respiratory effort and clear to auscultation bilaterally Effort and Inspection: Negative for tachypneic Cardio regular rate, regular rhythm and no gallops Cardio Narrative: occasional ectopic. GI normal to inspection, nondistended, normoactive bowel sounds and soft to palpation Extremity no calf tenderness General Extremity: Negative for edema Skin Rashes: no rashes Neuro Neuro Narrative: no tremor today at rest. More facial expression. Still with decreased blink. Ambulating better and was able to do 8 steps today. Psych cooperative and affect normal Appearance: appropriate Assessment & Plan Assessment/Plan (1) Debility: (2) Subdural hematoma, acute: (3) Multiple rib fractures involving four or more ribs: (4) Scalp laceration: QUALIFIERS: Encounter type: subsequent encounter Qualified Code(s): S01.01XD - Laceration without foreign body of scalp, subsequent encounter (5) Scapula fracture: QUALIFIERS: Encounter type: subsequent encounter Scapula location: unspecified part of scapula Fracture type: closed (6) RLS (restless legs syndrome): (7) Weight loss: (8) Dysphagia: QUALIFIERS: Dysphagia type: unspecified Qualified Code(s): R13.10 - Dysphagia, unspecified (9) Type 2 diabetes mellitus: QUALIFIERS: Diabetes mellitus complication status: with kidney complications Diabetes mellitus complication detail: with chronic kidney disease Diabetes mellitus roasterman insulin use: with roasterman use Chronic kidney disease stage: stage 3 (moderate) Chronic kidney disease stage 3 subtype: stage 3a (GFR 45-59) Qualified Code(s): E11.22 - Type 2 diabetes mellitus with diabetic chronic kidney disease; N18.31 - Chronic kidney disease, stage 3a; Z79.4 - intermodal dispatcher (current) use of insulin (10) Benign hypertension: (11) Essential hypertension: (12) Chronic renal failure, stage 3a: (13) Parkinsons disease: QUALIFIERS: Dyskinesia presence: unspecified whether dyskinesia Fluctuating manifestations: unspecified whether manifestations fluctuate Qualified Code(s): G20.A1 - Parkinson's disease without dyskinesia, without mention of fluctuations (14) Normochromic normocytic anemia: (15) Urinary retention: (16) Autonomic neuropathy: (17) Orthostatic hypotension: (18) Cognitive dysfunction: PLAN: Plan 1. Continue therapy 2. Add lisinopril 2.5 mg daily to the current drug regimen for chronic renal failure to prevent progression. 3. BMP, phosphorus, CBC on Wednesday 4. Follow up with Dr. Arndt for tx of PD post DC. He would like to establish with Dr. Marcus for his new PCP. Would also like to talk with a urologist. Will make a referral. 5. Sleeping well at night. Continue Remeron at 22.5 mg nightly and consider decreasing to 15 mg in another 2 to 4 weeks. 6. Plan DC on 08/03/24 so that he may attend his appt with ortho on 08/04/24. Janessa will be coming in for shared care with the therapists tomorrow. Will need ongoing therapy as OP. [facility] for SN to help with the catheter. Nursing will teach Janessa and Ace how to manage the Kaplan. Charges/Coding Visit Charges Inpatient E&M: 13080 Subs Hosp L2
[2024-07-31 09:52] VITALS: BP 140/62
[2024-07-31] MEDS: Lisinopril 2.5 MG Tablet PO (11:06)
[2024-07-31] MEDS: Insulin Lispro 100 UNIT/ML INSULN.PEN 18 UNIT SC (11:45)
[2024-07-31 12:06] LABS: Bedside Glucose 157 mg/dL (74-106)
[2024-07-31 12:41] VITALS: BMI 22.0
--- NOTE | 2024-07-31 12:43 | CASEMGMT ---
Addendum entered by Ruba Nicole 08/01/24 14:18: MILTON phoned to follow up on HHC choice. prefers [facility]. - MILTON phoned referral to [facility] for PT/OT/ST/SN Original Note: Social Work IDT met with patient and for Team meeting. Discussed patient's progress in PT/OT/ST/SN. Educated to [facility] insurance with NRD 08/03 and continued stay is not guaranteed with each review and advanced notice is not required. IDT states pt is ready to DC home with , but would like to attend therapy training and man training. agreed and set for 08/01 at 1100. educated pt and to new dx of Parkinson's complicating the need for man. expressed apprehension with man and questioning the dx of Parkinson's. Pt is ordered to f/u with neurologist. SW provided resources on Parkinson's support groups and exercises programs. SW provided emotional support. Pt has CT scan scheduled already for 08/04. Offered to set DC for 08/03. Pt/ agreeable. [facility] offered skilled HHC. MILTON provided list of skilled HHC agencies within geographical area, INN with insurance, that include quality and resource data via [employer] guide. to review and notify this worker. SW educated HHC agency will contact pt for SOC date date, but typically 2-3 days after DC, pending PCP signing orders. Pt denied DME needs. SW will continue to follow. 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
[2024-07-31] MEDS: Insulin Lispro 100 UNIT/ML INSULN.PEN 16 UNIT SC (16:23)
[2024-07-31 16:57] LABS: Bedside Glucose 157 mg/dL (74-106)
[2024-07-31 18:00] VITALS: BP 125/56; PULSE 67; RESP 16; TEMP 36.6; O2SAT 97
[2024-07-31] MEDS: Insulin Glargine-YFGN 100 UNIT/ML Pen 16 UNIT SC (20:30)
[2024-07-31] MEDS: Mirtazapine 15 MG Tablet 22.5 MG PO (20:33)
[2024-07-31] MEDS: Atorvastatin Calcium 80 MG Tablet PO (20:33)
[2024-07-31 20:40] VITALS: BMI 22.0
[2024-07-31 20:46] LABS: Bedside Glucose 175 mg/dL (74-106)
[2024-08-01] MEDS: Acetaminophen 500 MG Tablet 1000 MG PO ×2 (05:47→20:59)
[2024-08-01] MEDS: Levothyroxine 75 MCG Tablet PO (05:48)
[2024-08-01] MEDS: Carbidopa/Levodopa 10/100 Tablet PO ×3 (05:48→16:59)
[2024-08-01 06:00] VITALS: BP 144/74; PULSE 75; RESP 16; TEMP 36.5; O2SAT 97
[2024-08-01 07:14] LABS: Bedside Glucose 118 mg/dL (74-106)
[2024-08-01] MEDS: Niacin SA 500 MG Tablet PO ×2 (08:10→20:59)
[2024-08-01] MEDS: guaiFENesin 600 MG Tablet PO ×2 (08:10→20:59)
[2024-08-01] MEDS: amLODIPine 5 MG Tablet PO (08:10)
[2024-08-01] MEDS: Calcium (Elemental) 500 MG Tablet PO (08:10)
[2024-08-01] MEDS: Ezetimibe 10 MG Tablet PO (08:10)
[2024-08-01] MEDS: Lisinopril 2.5 MG Tablet PO (08:10)
[2024-08-01] MEDS: Empagliflozin 25 MG Tablet PO (08:10)
[2024-08-01] MEDS: Insulin Lispro 100 UNIT/ML INSULN.PEN 14 UNIT SC (08:11)
[2024-08-01] MEDS: Carvedilol 3.125 MG TABLET PO ×2 (08:11→16:59)
[2024-08-01] MEDS: Polyethylene Glycol 3350 17 GM PACKET PO (08:11)
[2024-08-01] MEDS: Gabapentin 100 MG Capsule PO ×2 (08:14→20:59)
[2024-08-01 09:29] VITALS: BP 107/46; BP 113/62; BP 122/59; PULSE 75; PULSE 82; PULSE 97
--- NOTE | 2024-08-01 11:05 | PN_ITS ---
Subjective Subjective Afebrile VSS -blood pressures over the past 16 hours have ranged from 107/46 to 141/74. Heart rate is within normal limits. Blood pressure lying down this morning was 107/46 with a heart rate of 75. Sitting up the blood pressure was 122/59 with a heart rate of 82 and standing the blood pressure is 113/62 with a heart rate of 97. Maintaining appropriate oxygen saturation on RA Oral intake - FOOD good FLUIDS fair to good The blood sugar record was reviewed. Blood sugars are under excellent control with no hypoglycemia. No blood sugars over 180. Discussed with nursing - no problems that need addressed Reviewed the THERAPY notes Medication list reviewed. Janessa forgot to come in for shared care today......it was rescheduled for tomorrow. Ace denies lightheadedness, CP, SOB, N/V/abd apin, calf pain and suprapubic pain. Objective Data Objective Data Vital Signs: Vital Signs Temp Pulse Resp BP Pulse Ox O2 Del Method O2 Flow Rate 97.7 F L 75 16 107/46 L 97 Room Air 2 08/01/24 06:00 08/01/24 09:29 08/01/24 06:00 08/01/24 09:29 08/01/24 06:00 08/01/24 06:00 07/22/24 06:00 FiO2 21 07/20/24 22:42 Oxygen Flow Rate (L/min) 2 Oxygen Delivery Method Room Air Weight: 149 lb 2 oz Body Mass Index (BMI) 22.0 Intake & Output: Intake and Output for Last 24 Hours 07/30/24 07/31/24 08/01/24 23:59 23:59 23:59 Intake Total 1155 / 1155 1450 / 1450 200 / 200 Output Total 2250 / 2250 1200 / 1200 600 / 600 Balance -1095 / -1095 250 / 250 -400 / -400 Lab / Micro Data 08/01/24 13:46 08/01/24 13:46 Labs: Laboratory Results - last 24 hr 07/31/24 11:44: POC Glucose 157 H 07/31/24 16:22: POC Glucose 157 H 07/31/24 20:23: POC Glucose 175 H 08/01/24 06:33: POC Glucose 118 H Micro: Microbiology 07/25/24 12:30 Stool Stool Occult Blood (LEXI) - Final 07/19/24 18:10 Urine Catheter - Catheter Urine Culture - Final Enterococcus faecalis Physical Exam Const alert and no apparent distress General Appearance: cooperative Resp normal respiratory effort and clear to auscultation bilaterally Effort and Inspection: Negative for tachypneic Cardio regular rate, regular rhythm and no gallops Cardio Narrative: occasional ectopic. GI normal to inspection, nondistended, normoactive bowel sounds and soft to palpation Extremity no calf tenderness General Extremity: Negative for edema Skin Rashes: no rashes Psych cooperative and affect normal Appearance: appropriate Assessment & Plan Assessment/Plan (1) Debility: (2) Subdural hematoma, acute: (3) Multiple rib fractures involving four or more ribs: (4) Scalp laceration: QUALIFIERS: Encounter type: subsequent encounter Qualified Code(s): S01.01XD - Laceration without foreign body of scalp, subsequent encounter (5) Scapula fracture: QUALIFIERS: Encounter type: subsequent encounter Scapula location: unspecified part of scapula Fracture type: closed (6) RLS (restless legs syndrome): (7) Weight loss: (8) Dysphagia: QUALIFIERS: Dysphagia type: unspecified Qualified Code(s): R13.10 - Dysphagia, unspecified (9) Type 2 diabetes mellitus: QUALIFIERS: Diabetes mellitus complication status: with kidney complications Diabetes mellitus complication detail: with chronic kidney disease Diabetes mellitus detention insulin use: with technician terminal and repeater use Chronic kidney disease stage: stage 3 (moderate) Chronic kidney disease stage 3 subtype: stage 3a (GFR 45-59) Qualified Code(s): E11.22 - Type 2 diabetes mellitus with diabetic chronic kidney disease; N18.31 - Chronic kidney disease, stage 3a; Z79.4 - technician terminal and repeater (current) use of insulin (10) Benign hypertension: (11) Essential hypertension: (12) Chronic renal failure, stage 3a: (13) Parkinsons disease: QUALIFIERS: Dyskinesia presence: unspecified whether dyskinesia F luctuating manifestations: unspecified whether manifestations fluctuate Q ualified Code(s): G20.A1 - Parkinson's disease without dyskinesia, without mention of fluctuations (14) Normochromic normocytic anemia: (15) Urinary retention: (16) Autonomic neuropathy: (17) Orthostatic hypotension: (18) Cognitive dysfunction: PLAN: Plan 1. Continue therapy 2. HH and BMP now. If the BUN and creatinine are elevated will hydrate and recheck orthostatics in the AM X 3 days. If the BUN and CREAT are stable will need to DC Lisinopril because of orthostatic hypotension OR DC the amlodipine and continue Lisinopril.......which would be of more benefit to preserve kidney function. 3. Dc home . 4. [facility]. 5. Janessa will come in tomorrow for shared care and therapist will call her 1 hour prior to when she is supposed to be on rehab for training. 6. HHC at [place] Charges/Coding Visit Charges Inpatient E&M: 70125 Subs Hosp L1
[2024-08-01] MEDS: Insulin Lispro 100 UNIT/ML INSULN.PEN 18 UNIT SC (11:59)
[2024-08-01 12:25] LABS: Bedside Glucose 112 mg/dL (74-106)
[2024-08-01 13:56] LABS: Hematocrit 33.1 % (40-54); Hemoglobin 10.7 g/dL (13.0-16.5)
[2024-08-01 14:25] LABS: Anion Gap 11 (5-15); BUN 30 mg/dL (4-19); BUN/Creat Ratio 17.8 RATIO (10-20); Carbon Dioxide 22.6 mmol/L (21.0-32.0); Chloride 106 mmol/L (98-108); EST Glomerular Filtration Rate 41 (>60); Estimated Creatinine Clearance 34.82 ml/min (50-250); Glucose 148 mg/dL (70-99); Magnesium 2.3 mg/dL (1.5-2.2); Potassium 4.3 mmol/L (3.3-5.1); Sodium Level 139 mmol/L (133-145)
--- NOTE | 2024-08-01 14:40 | NURSING ---
Message left x2 for [facility] to schedule f/u appt with Dr Toure and referral sent to request appt with neurology and urology. No return call thus far. will attempt again tomorrow.
[2024-08-01 15:11] VITALS: BMI 22.0
[2024-08-01] MEDS: Insulin Lispro 100 UNIT/ML INSULN.PEN 16 UNIT SC (16:59)
[2024-08-01 17:28] VITALS: BP 134/57; PULSE 75; RESP 16; TEMP 36.6; O2SAT 99
[2024-08-01 17:37] LABS: Bedside Glucose 248 mg/dL (74-106)
[2024-08-01] MEDS: Atorvastatin Calcium 80 MG Tablet PO (20:59)
[2024-08-01] MEDS: Senna/Docusate Sodium 1 Tablet 2 TABLET PO (20:59)
[2024-08-01] MEDS: Mirtazapine 15 MG Tablet 22.5 MG PO (20:59)
[2024-08-01] MEDS: Insulin Glargine-YFGN 100 UNIT/ML Pen 16 UNIT SC (21:03)
[2024-08-01 22:05] LABS: Bedside Glucose 173 mg/dL (74-106)
[2024-08-02 04:34] VITALS: BMI 22.0
[2024-08-02 06:00] VITALS: BP 133/62; PULSE 83; RESP 16; TEMP 37.1; O2SAT 96; BMI 20.7
[2024-08-02] MEDS: Carbidopa/Levodopa 10/100 Tablet PO ×3 (06:48→16:37)
[2024-08-02] MEDS: Levothyroxine 75 MCG Tablet PO (06:49)
[2024-08-02 07:08] VITALS: BP 110/56; BP 133/62; BP 133/65; PULSE 100; PULSE 83; PULSE 92
[2024-08-02 07:37] LABS: Bedside Glucose 191 mg/dL (74-106)
[2024-08-02] MEDS: Gabapentin 100 MG Capsule PO ×2 (08:06→21:40)
[2024-08-02] MEDS: Carvedilol 3.125 MG TABLET PO ×2 (08:06→16:37)
[2024-08-02] MEDS: Niacin SA 500 MG Tablet PO ×2 (08:06→21:40)
[2024-08-02] MEDS: Ezetimibe 10 MG Tablet PO (08:06)
[2024-08-02] MEDS: Calcium (Elemental) 500 MG Tablet PO (08:06)
[2024-08-02] MEDS: guaiFENesin 600 MG Tablet PO ×2 (08:06→21:40)
[2024-08-02] MEDS: Lisinopril 2.5 MG Tablet PO (08:06)
[2024-08-02] MEDS: Empagliflozin 25 MG Tablet PO (08:06)
[2024-08-02] MEDS: amLODIPine 5 MG Tablet PO (08:06)
[2024-08-02] MEDS: Insulin Lispro 100 UNIT/ML INSULN.PEN 14 UNIT SC (08:07)
--- NOTE | 2024-08-02 10:50 | SP.MBSS_ITS ---
Modified Barium Swallow Patient Information Study Date: 08/02/24 Study Time: 10:00 Direct Billable Minutes: 120 Total Minutes procedure & reportin Diagnosis: OROPHARYNGEAL DYSPHAGIA R13.12 Referring Physician: Emily Hawkins Medical History: Ace White is a 78-year-old male with a complex medical history that includes coronary artery disease (CABG in 1998), hypothyroidism, right carotid stenosis (carotid endarterectomy), a CVA in 2018, GERD, type 2 diabetes, hyperlipidemia, benign prostatic hyperplasia (BPH), depression, and PTSD. On 07/10/2024, he experienced a fall down four steps onto concrete, which resulted in a head laceration, left shoulder and rib pain, and a potential syncopal episode. Imaging revealed a trace extra-axial hemorrhage, left scapula and rib fractures, and a solid pulmonary nodule. He was transferred to [facility] for trauma care, where he was diagnosed with mild acute subdural bleeds, left upper extremity fractures, and respiratory failure. He was started on treatment for mucous plugging and seen by speech therapy for dysphagia and cognitive dysfunction. Acute inpatient rehabilitation was recommended, and he was admitted to the [facility] Inpatient Rehab Unit on 07/19/24. Ace participated in a Modified Barium Swallow Study (MBSS) on 07/21/24, which diagnosed him with moderate oropharyngeal dysphagia. Based on the findings, the following diet recommendations were made: regular textures and thin liquids, with the use of a Provale cup to limit liquid boluses to 5cc during meals. If coughing persists with thin liquids via the Provale cup, the use of the cup should be discontinued, and liquid intake should be restricted to teaspoon consumption only. Water may be consumed between meals via regular sips from a cup, provided thorough oral hygiene is completed prior to intake and it is separate from meals. Additional recommendations include taking small bites/sips, using a double swallow to clear pharyngeal residue, and coughing and reswallowing as needed. Ace has been actively participating in skilled speech therapy services since admission, focusing on analyzing swallow function, oropharyngeal strengthening, providing patient and caregiver education, and training on compensatory swallowing strategies to decrease the risk of aspiration. Given his ongoing needs, the treating JUICE SCALEMAN has recommended a repeat MBSS to objectively reassess his swallow function. Current Diet Ordered: REGULAR TEXTURES / THIN LIQUIDS WITH STRATEGIES. Dentition: Upper Dentures and Lower Dentures Mental Status: WNL Respiratory Status: Oxygenating on Room Air Penetration-Aspiration Scale Penetration-Aspiration Scale: OBJECTIVE ASSESSMENT OF SWALLOW FUNCTION (QUANTITATIVE ? PER TRIAL): PENETRATION / ASPIRATION SCALE (CAMACHO): 1 = does not enter airway 2 = enters airway/above vocal folds/ejected 3 = enters airway/above vocal folds/not ejected 4 = enters airway/contacts vocal folds/ejected 5 = enters airway/contacts vocal folds/not ejected 6 = enters airway/below vocal folds/ejected 7 = enters airway/below vocal folds/not ejected despite effort 8 = enters airway/below vocal folds/no effort VIDEOFLOROSCOPIC SCALE SCORE (CAMACHO): Grade I = aspiration of material that has penetrated into the laryngeal vestibule, intact cough reflex Grade II = aspiration < 10 % of the bolus, intact cough reflex Grade III = aspiration of < 10 % of the bolus, reduced cough reflex or aspiration of > 10 % of the bolus, intact cough reflex Grade IV = aspiration of > 10 % of the bolus, reduced cough reflex Penetration-Aspiration Scale Score Thin Liquid via teaspoon: Result: 1= does not enter airway Thin Liquid via teaspoon Trial 2: Result: 1= does not enter airway Thin Liquid via small single sip: cup: Result: 5= enters airways/contacts vocal folds/not ejected Thin Liquid via small single sip: cup Effortful swallow Trial 2: Result: 5= enters airways/contacts vocal folds/not ejected Thin Liquid via teaspoon Trial 3: Result: 5= enters airways/contacts vocal folds/not ejected Thin Liquid via single sip: straw: Result: 2= enter airway/above vocal folds/ejected Thin Liquid via single sip: straw Trial 2: Result: 1= does not enter airway Cookie: Result: 1= does not enter airway Thin Liquid via teaspoon Trial 4: Result: 3= enters airways/above vocal folds/not ejected Comment: It is difficult to determine whether the observed laryngeal penetration occurred during this trial or was residual from a previous trial, given the significant cookie residue remaining in the valleculae and pyriform sinuses following the prior swallow. Thin Liquid via single sip: straw Trial 3: Result: 2= enter airway/above vocal folds/ejected Thin Liquid via single sip: straw Trial 4: Result: 3= enters airways/above vocal folds/not ejected Oral Phase Labial Seal: No Labial Escape Tongue Control During Bolus Hold: Posterior escape of less than half of bolus Bolus Preparation/Mastication: Slow prolonged chewing/mashing with complete recollection Bolus Transport/Lingual Motion: Delayed initiation of tongue motion Oral Residue: Trace residue lining oral structures Pharyngeal Phase Initiation of Pharyngeal Swallow: Bolus head in pyriforms Soft Palate Elevation: No bolus between soft palate and pharyngeal wall Laryngeal Elevation: Partial superior movement thyroid cart/partial apprx aryt- epig petiole Anterior Hyoid Excursion: Partial anterior movement Epiglottic Movement: Complete inversion Laryngeal Vestibule Closure at Height of Swallow: Incomplete; narrow column of air/contrast in laryngeal vestibule Pharyngeal Stripping Wave: Present - diminished Pharyngoesophageal Segment Opening: Parital distension and partial duration; parital obstruction of flow Tongue Base Retraction: Narrow column of contrast between tongue base & post. pharyngeal wall Pharyngeal Residue: Collection of residue within or on pharyngeal structures Treatment Strategies Effects of treatment strategies attemped:: Bolus hold + effortful swallow = not effective Cough and re-swallow = somewhat effective in ejecting laryngeal penetration Double swallow = somewhat effective in clearing post prandial pharyngeal residue Diagnosis/Impression Diagnosis: MODERATE OROPHARYNGEAL DYSPHAGIA R13.12 Impression: The study began with trials of thin liquids administered via teaspoon. No penetration or aspiration was observed on the first two trials. Thin liquids were then trialed via cup with JUICE SCALEMAN cueing the patient to take small sips. Penetration to the level of the vocal folds was observed during cup drinking, likely due to impaired bolus control and delayed swallow initiation. At swallow onset, the bolus was prematurely located in the pyriform sinuses. Reduced anterior hyoid excursion further compromised airway protection during the swallow. The patient was seated upright in a wheelchair but leaned forward while self-feeding; this positioning did not appear to significantly impact swallow physiology. Thin liquids were also trialed via straw. Initial trials showed a slight reduction in penetration severity; however, the patient was unable to consistently modulate bolus volume. On the final straw trial, an increased bolus size resulted in penetration to the vocal folds. Significant pharyngeal residue was observed in both the valleculae and pyriform sinuses across trials. This was attributed to reduced tongue base retraction, decreased pharyngeal constriction, and decreased UES opening. Double swallows were somewhat effective in clearing residue. A trial with a Jaky Doone cookie (approximately 1/4 of the cookie) resulted in a significant amount of residue remaining in the valleculae and pyriform sinuses post-swallow. Liquid washes and double swallows improved clearance to some extent, though notable residue remained post-prandially. No aspiration was observed during the MBSS; however, based on current findings, the patient should continue using the same compensatory swallowing strategies as recommended in the 07/21/2024 MBSS to reduce the risk of aspiration. These includ e: using a Provale cup to limit liquid boluses to 5cc during meals, discontinuing the Provale cup and switching to teaspoon-only intake if coughing persists with thin liquids, allowing water between meals via regular sips from a cup (provided thorough oral hygiene is performed beforehand and it is separate from meals), taking small bites and sips, using a double swallow to clear pharyngeal residue, and coughing and reswallowing as needed. Recommendations Diet: Regular Textures and Thin Liquids Comment: -Use provale cup to limit liquid boluses to 5cc during meals -If still coughing w/ thin intake via provale cup, discontinue use and instead limit liquid intake w/ meals to consumption from a teaspoon only -OK to have water between meals via regular sips from a cup long as thorough oral hygiene is completed prior to intake & is separate from meals -small bites/sips -double swallow to clear pharyngeal residue -cough and reswallow as needed Supervision: Distant Supervision Recommend Repeat Modified Barium Swallow: Yes Need for Skilled Speech Therapy Services: Yes Education Completed: 1. Described result of evaluation. and 2. Pt understands evaluation & agrees with goals and treatment plan. Status Active ST Patient: Active Contact Information [facility] Speech Therapy:: Jen Munoz M.A., [facility] SCALEMAN Speech-Language Pathologist [facility] [phone]? ?FAX [phone]? [email or web address] [address] [place] [address]? ?[place] [address]
[2024-08-02] MEDS: Insulin Lispro 100 UNIT/ML INSULN.PEN 18 UNIT SC (11:52)
[2024-08-02 12:20] LABS: Bedside Glucose 149 mg/dL (74-106)
--- NOTE | 2024-08-02 13:08 | DCINST_ITS ---
Discharge Instructions Diet Discharge Diet: - (low fat/low salt) DC O2, CPAP, BIPAP needs Home O2 Discharge instructions: No Dressing / Incision Discharge Activity: May Not Drive, May Shower and Use Walker (can also use a quad cane) Weight Bearing Status: Full weight bearing Dressing / Incision Call your doctor if you observe: Fever of 101 or Higher, Shortness of breath, Dizziness, Fainting spells, Swelling in the ankles, Chest pain, Increased palpitations (irregular heartbeat), Calf discomfort, Uncontrolled pain and - (night sweats, shaking chills, change in the urine such as cloudy urine or bloody urine, nausea or vomiting. ) Catheter: Kaplan to large bag (can also use the leg bag) Follow Up Care Please Follow Up With: Jose Manuel Marcus MD When: The office will call you to schedule an appt. You will also need to follow up with the [facility] for neurology and urology. Test Results: Test results from this visit will be discussed in further detail at your follow- up appointment, if applicable. Pending Tests Upon Discharge: none Discharge Plan Admission Admit Date/Time: 07/19/24 16:42 Primary Reason for Your Visit: Debility due to traumatic fractures of ribs and L scapula. Attending Provider: Emily Hawkins Primary Care Provider: [facility] Instructions Patient Instructions: Urinary Tract Infections in Men, Parkinson Common Symptoms, Parkinson Disease Mobility Tips Additional Instructions / Restrictions: 1. We have diagnosed you with Parkinson's disease and you have been started on a Medication called Sinemet. Since you have been taking this medication you are walking much better and not losing your balance. You have more facial expression and the tremors in your hands are much better. I am going to keep you on this medication at discharge from rehab. You will be following up at the [facility] with neurology to manage the Parkinson's. Parkinson's disease can also cause urine retention, cognitive dysfunction and something we call orthostatic hypotension.......this means your BP drops significantly when you stand and can cause you to fall or pass out. You have been retaining urine. Sometimes in men your age this is due to prostate enlargement. We started you on a drug called Flomax which is used to treat prostate problems. This did not help the urine retention AND registered nurse practitioner to big decreases in the BP with standing and lightheadedness. You do not tolerate these drugs. I think the most likely reason for the urine retention is Parkinson's and not prostate problems. You are going home with a catheter to drain your bladder. Urine retention if untreated can lead to infections and kidney failure. That is why you need the catheter. You are going to see a urologist at the [facility] to discuss what, if anything, can be done to get the catheter out. Catheters can lead to urinary tract infections called cystitis. I have given you a hand out that talks about the symptoms of urinary tract infection (UTI). 2. Parkinson's disease is treatable and the neurologist will adjust medications as needed. I think you have probably had Parkinson's disease for at least the last year. 3. I suspect the problems you have been having swallowing are also due to Parkinson's disease. 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 This means that when you swallow some of the food/liquid gets into the trachea/lungs. This can cause pneumonia. The symptoms of pneumonia are cough, fever, shortness of breath, sometimes chest pain, wheezing, chills. If you have any of these symptoms you should call your doctor OR go to the ER. You will continue to get speech therapy to help with swallowing after discharge. Please continue to follow the instructions for swallowing that the speech therapist gave you for drinking fluids after you get home. 4. We have taken you off some of the medications you were taking. You were taking 2 antidepressants, mirtazapine (also called Remeron) and Paxil (also called paroxetine). You are not depressed and are doing well. Instead of taking mirtazapine 30 mg at bedtime you are now taking 22.5 mg at bedtime and you are sleeping well. Your mood is good and your appetite is also good. The mirtazapine dose may be able to be weaned further. You can discuss this with Dr. Marcus. Your diabetes is well controlled. I do not think you need to be on Ozempic (also called semaglutide). This medication can lead to weight loss and you do not have any weight to lose. You are currently taking glargine at bedtime, lispro insulin with meals and the Jardiance (also called empagliflozin) 25 mg daily. You have had no blood sugars that are too low. We are continuing this regimen at [facility]. 5. If you or Janessa have any questions after you get home please do not hesitate to call me. I am giving you a copy of your discharge summary........please take this to your appts at the [facility]. OFFICE: [phone] CELL: [phone] NURSES STATION ON REHAB: [phone] Discharge Orders/Prescriptions Prescriptions: New acetaminophen 500 mg Tablet 1,000 mg PO Q8 Qty: 90 0RF carbidopa-levodopa 10-100 mg Tablet 1 tab PO TIDAC Qty: 90 0RF Jardiance 25 mg Tablet 25 mg PO DAILY Qty: 30 0RF insulin lispro [Humalog KwikPen Insulin] 100 unit/mL Insulin Pen See Rx Instructions .ROUTE .COMPLEX Qty: 15 0RF Rx Instructions: 14 units with breakfast, 18 units with lunch and 16 units with supper. mirtazapine 15 mg Tablet 22.5 mg PO QHS Qty: 45 0RF Rx Instructions: take 1 and 1/2 tabs daily at bedtime insulin glargine-yfgn 100 unit/mL (3 mL) Insulin Pen 16 unit subcut QHS Qty: 0 0RF tramadol 50 mg Tablet 25 mg PO Q6H PRN PRN (Reason: PAIN 5-10) 7 Days Qty: 14 0RF Continued atorvastatin 80 mg Tablet 80 mg PO QHS amlodipine 5 mg tablet 5 mg PO DAILY levothyroxine [Euthyrox] 75 mcg tablet 75 mcg PO DAILY ezetimibe [Zetia] 10 mg tablet 10 mg PO DAILY carvedilol [Coreg] 3.125 mg tablet 3.125 mg PO BID Qty: 60 0RF Rx Instructions: must administer with a meal/food. This is a new dose for you. gabapentin 100 mg capsule 100 mg PO BID Qty: 60 0RF calcium gluconate 60 mg calcium (650 mg) tablet 30 mg PO DAILY Discontinued insulin glargine [Lantus U-100 Insulin] 100 UNIT/ML solution 25 unit subcut QHS insulin aspart U-100 [Novolog FlexPen U-100 Insulin] 100 UNITS/ML insulin pen 14 units subcut TIDCM levetiracetam 500 mg Tablet 500 mg PO BID semaglutide 1 mg/dose (2 mg/1.5 mL) Pen Injector 1.5 mg SUBCUT FR acetaminophen 500 mg tablet 1,000 mg PO Q6H acetylcysteine 200 mg/mL (20 %) solution 1 ml inhalation Q6H ipratropium-albuterol 0.5 mg-3 mg(2.5 mg base)/3 mL solution for nebulization 3 ml inhalation Q6H guaifenesin 600 mg tablet extended release 12hr 600 mg PO BID PRN (Reason: cough) Jardiance 10 mg tablet 10 mg PO DAILY niacin 500 mg tablet 500 mg PO BID ropinirole 0.25 mg tablet 0.25 mg PO QHS doxazosin 2 mg tablet 2 mg PO DAILY mirtazapine 30 mg tablet 30 mg PO QHS Referrals / Follow Up: Dr Toure [Other] - 08/24/24 10:30 am () Venessa Lama [Other] - 08/17/24 1:[address] [facility] [Other] - 08/04/24 11:40 am Jose Manuel Marcus MD [Med Staff - Still Operator Batch Or Continuous] - (faxed over med list and face sheet. office to call with appt date) Disposition Disposition (needs filled in before D/C Order can be placed): Home Health Service
[2024-08-02] MEDS: Acetaminophen 500 MG Tablet 1000 MG PO ×2 (14:08→21:41)
[2024-08-02 14:25] VITALS: BMI 20.7
[2024-08-02 14:50] LABS: Bacteria 0 SEEN /hpf (None Seen); Color, Urine Yellow (Yellow); Glucose, Dipstick 1000 mg/dl (Normal); Ketone-Dipstick Negative (Negative); Leukocyte Esterase-Dipstick Negative /ul (Negative); Mucous, Urine 0 SEEN /hpf (<or=2+); Nitrite-Dipstick Negative (Negative); Occult Blood-Urine Negative /ul (Negative); Protein-Dipstick 30 mg/dl (Negative); Specific Gravity, Urine 1.015 (1.002-1.030); Squamous Epithelial Cells - UA 0 SEEN /hpf (0-5); Urine Bilirubin Dipstick Negative (Negative); Urine Clarity Sl. Cloudy (Clear); Urine Urobilinogen Normal (Normal)
[2024-08-02 15:16] LABS: White Blood Cells 0-5 SEEN /hpf (0-5)
[2024-08-02 15:17] LABS: Red Blood Cells-Urine 0-5 SEEN /hpf (0-5)
[2024-08-02] MEDS: Insulin Lispro 100 UNIT/ML INSULN.PEN 16 UNIT SC (16:38)
[2024-08-02 17:14] LABS: Bedside Glucose 89 mg/dL (74-106)
[2024-08-02 17:27] VITALS: BP 129/53; PULSE 71; RESP 16; TEMP 36.6; O2SAT 98
[2024-08-02] MEDS: Senna/Docusate Sodium 1 Tablet 2 TABLET PO (21:40)
[2024-08-02] MEDS: Mirtazapine 15 MG Tablet 22.5 MG PO (21:40)
[2024-08-02] MEDS: Atorvastatin Calcium 80 MG Tablet PO (21:40)
[2024-08-02] MEDS: Insulin Glargine-YFGN 100 UNIT/ML Pen 16 UNIT SC (21:40)
[2024-08-02 22:17] LABS: Bedside Glucose 235 mg/dL (74-106)
[2024-08-02 22:33] VITALS: BMI 20.7
[2024-08-03] MEDS: Acetaminophen 500 MG Tablet 1000 MG PO ×2 (05:42→13:28)
[2024-08-03] MEDS: Levothyroxine 75 MCG Tablet PO (05:42)
[2024-08-03] MEDS: Carbidopa/Levodopa 10/100 Tablet PO ×2 (05:42→11:32)
[2024-08-03 05:50] VITALS: BP 141/66; PULSE 72; RESP 16; TEMP 36.5; O2SAT 97
[2024-08-03 06:50] LABS: Bedside Glucose 123 mg/dL (74-106)
[2024-08-03] MEDS: Ezetimibe 10 MG Tablet PO (08:17)
[2024-08-03] MEDS: amLODIPine 5 MG Tablet PO (08:17)
[2024-08-03] MEDS: guaiFENesin 600 MG Tablet PO (08:18)
[2024-08-03] MEDS: Lisinopril 2.5 MG Tablet PO (08:18)
[2024-08-03] MEDS: Niacin SA 500 MG Tablet PO (08:18)
[2024-08-03] MEDS: Empagliflozin 25 MG Tablet PO (08:18)
[2024-08-03] MEDS: Senna/Docusate Sodium 1 Tablet 2 TABLET PO (08:18)
[2024-08-03] MEDS: Calcium (Elemental) 500 MG Tablet PO (08:18)
[2024-08-03] MEDS: Carvedilol 3.125 MG TABLET PO (08:20)
[2024-08-03] MEDS: Insulin Lispro 100 UNIT/ML INSULN.PEN 14 UNIT SC (08:20)
[2024-08-03 08:23] VITALS: BP 148/58; PULSE 68
[2024-08-03] MEDS: Gabapentin 100 MG Capsule PO (08:24)
--- NOTE | 2024-08-03 08:29 | PCM.DC.SUM ---
Providers Date of Admission: 07/19/24 Date of Discharge: 08/03/24 Primary Care Physician: [facility] none Reason For Visit: SUBDURAL HEMATOMA Diagnosis Discharge Diagnosis (1) Debility: Status: Acute Code(s): R53.81 - Other malaise (2) Subdural hematoma, acute: Status: Acute Code(s): S06.5XAA - Traumatic subdural hemorrhage with loss of consciousness status unknown, initial encounter Plan: Secondary to a fall. NO ANTONY or lightheadedness at the time of DC from rehab. Has follow up appts scheduled and a repeat CT brain on 08/04/24. (3) Multiple rib fractures involving four or more ribs: Status: Acute Code(s): S22.49XA - Multiple fractures of ribs, unspecified side, initial encounter for closed fracture (4) Scalp laceration: Status: Acute Code(s): S01.01XA - Laceration without foreign body of scalp, initial encounter Qualifiers: Encounter type: subsequent encounter Qualified Code(s): S01.01XD - Laceration without foreign body of scalp, subsequent encounter Plan: Healing very well. (5) Scapula fracture: Status: Acute Code(s): S42.109A - Fracture of unspecified part of scapula, unspecified shoulder, initial encounter for closed fracture Qualifiers: Encounter type: subsequent encounter Fracture type: closed Scapula location: unspecified part of scapula (6) RLS (restless legs syndrome): Status: Chronic Code(s): G25.81 - Restless legs syndrome Plan: Taken off Requip when he was placed on Sinemet for Parkinson's disease. Taking Gabapentin 100 mg BID and he has not complained of restless leg in the past 10 days on rehab. Has follow up scheduled with neurology. (7) Weight loss: Status: Chronic Code(s): R63.4 - Abnormal weight loss Plan: May be related to dysphagia plus he was taken Ozempic at admission to rehab and this has been discontinued. (8) Dysphagia: Status: Chronic Code(s): R13.10 - Dysphagia, unspecified Qualifiers: Dysphagia type: unspecified Qualified Code(s): R13.10 - Dysphagia, unspecified Plan: Moderate oropharyngeal dysphagia with silent aspiration. More likely than not related to Parkinson's disease. Will continue ST with HHC at [place]. (9) Type 2 diabetes mellitus: Status: Chronic Code(s): E11.9 - Type 2 diabetes mellitus without complications Qualifiers: Chronic kidney disease stage: stage 3 (moderate) Chronic kidney disease stage 3 subtype: stage 3a (GFR 45-59) Diabetes mellitus complication detail: with chronic kidney disease Diabetes mellitus complication status: with kidney complications Diabetes mellitus intermediate insulin use: with long term acute care registered nurse use Qualified Code(s): E11.22 - Type 2 diabetes mellitus with diabetic chronic kidney disease; N18.31 - Chronic kidney disease, stage 3a; Z79.4 - senior care (current) use of insulin Plan: Well controlled at [place] from rehab with no hypoglycemia. DC'd on Lispro insulin 14 units with breakfast and 16 units with lunch and supper, Lantus 16 units nightly, Jardiance 25 mg daily. (10) Chronic renal failure, stage 3a: Status: Chronic Code(s): N18.31 - Chronic kidney disease, stage 3a (11) Parkinsons disease: Status: Chronic Code(s): G20.A1 - Parkinson's disease without dyskinesia, without mention of fluctuations Qualifiers: Dyskinesia presence: unspecified whether dyskinesia Fluctuating manifestations: unspecified whether manifestations fluctuate Qualified Code(s): G20.A1 - Parkinson's disease without dyskinesia, without mention of fluctuations Plan: Presented to rehab with resting tremors, masked faces, decreased blink, bradykinesia, dysphagia and a festinating gait. Later found to have urine retention and orthostatic hypotension (greatly exacerbated with Flomax which was discontinued). Orthostasis and urine retention are likely related to autonomic neuropathy, related to PD. He also has persistent cognitive dysfunction. BCAT (brief cognitive assessment tool) was done early in his admission to rehab and he scored 32 out of a possible 50. This was repeated a few days prior to discharge and he scored 34 out of a possible 50. I suspect this is also related to PD. He was started on Sinemet and had significant improvement. He is now ambulating with a quad can and has no loss of balance. He has a reciprocal gait and he is able to do stairs. The tremors have dramatically decreased and he has better facial expression. He still has moderate oropharyngeal dysphagia and he will be following up with speech therapy home health care at discharge. He also has an appointment with neurology. He was discharged on Sinemet 100/10 mg 3 times daily. (12) Normochromic normocytic anemia: Status: Chronic Code(s): D64.9 - Anemia, unspecified Plan: Etiology unknown. Stool for occult blood was negative. (13) Urinary retention: Status: Chronic Code(s): R33.9 - Retention of urine, unspecified Plan: He was placed on Flomax and after 6 doses a voiding trial was done. Following removal of the Kaplan catheter he had no urge to urinate and was retaining large amounts of urine up to 1 L. He did not tolerate the Flomax due significant symptomatic exacerbation of underlying chronic orthostatic hypotension. The Kaplan catheter was reinserted and he has a follow up with urology [place] the [place] scheduled. (14) Autonomic neuropathy: Status: Chronic Code(s): G90.9 - Disorder of the autonomic nervous system, unspecified Plan: Suspect this is related to PD and chronic DM II. Orthostatic vital signs done 1 day prior to discharge from rehab showed a blood pressure of 133/62 lying down, 133/65 sitting up and it dropped to 110/56 with standing. The pulse rate increased from 83-100 when going from lying to standing. He was asymptomatic. Coreg dose was decreased during his admission to rehab due to hypotension. He was admitted on 10 mg of Amlodipine daily. He had some mild ankle edema. The dose was decreased to 5 mg and the edema resolved. Lisinopril was started to help preserve kidney function. May be able to taper Amlodipine to a lower dose. (15) Orthostatic hypotension: Status: Chronic Code(s): I95.1 - Orthostatic hypotension (16) Cognitive dysfunction: Status: Chronic Code(s): F09 - Unspecified mental disorder due to known physiological condition Plan: Suspect related to PD. (17) Depression: Status: Chronic Code(s): F32.A - Depression, unspecified Qualifiers: Depression Type: unspecified Qualified Code(s): F32.A - Depression, unspecified Plan: He was taking Paxil, Benadryl and Remeron at at admission to rehab. Paxil and Benadryl were discontinued and he was kept on Remeron. He did well and denied feeling depressed. He c/o feeling overmedicated at admission to rehab. This improved with discontinuation of Paxil. He had a good appetite and was sleeping well. Remeron was decreased to 15 mg Q HS. He did not sleep as well and the dose was increased to 22.5 mg and prior to DC he is sleeping well, eating 75-100% of his diet and he is outgoing and interacting with staff well. He is always ready to do therapy. He denies feeling anxious or depressed. His mood is good. (18) Granulomatous disease, chronic: Status: Chronic Code(s): D71 - Functional disorders of polymorphonuclear neutrophils Plan: Lungs liver and spleen. (19) Cholelithiasis: Status: Chronic Code(s): K80.20 - Calculus of gallbladder without cholecystitis without obstruction Qualifiers: Biliary obstruction: without biliary obstruction Cholecystitis presence: without cholecystitis Cholelithiasis location: gallbladder Qualified Code(s): K80.20 - Calculus of gallbladder without cholecystitis without obstruction Plan: Asymptomatic (20) Hyperlipidemia: Status: Chronic Code(s): E78.5 - Hyperlipidemia, unspecified Qualifiers: Hyperlipidemia type: unspecified Qualified Code(s): E78.5 - Hyperlipidemia, unspecified (21) Essential hypertension: Status: Chronic Code(s): I10 - Essential (primary) hypertension Plan: In conjunction with orthostatic hypotension. 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 DC home with [facility] 2. Referral completed to [place] for follow up with urology and neurology. 3. Appt for CT head for 08/04/24 confirmed. 4. Follow up with Dr. Marcus, PCP, in [place]. 5. No DME needed. Medications at Discharge Home Medications atorvastatin 80 mg tablet 80 mg PO QHS cholesterol med 05/14/21 calcium gluconate 60 mg calcium (650 mg) tablet 30 mg PO DAILY supplement 07/10/24 amlodipine 5 mg tablet 5 mg PO DAILY blood pressure 07/19/24 ezetimibe 10 mg tablet (Zetia) 10 mg PO DAILY cholesterol 07/19/24 levothyroxine 75 mcg tablet (Euthyrox) 75 mcg PO DAILY thyroid 05/07/25 acetaminophen 500 mg tablet 1,000 mg (2 x 500 mg) PO Q8 #90 tabs 08/02/24 carbidopa 10 mg-levodopa 100 mg tablet 1 tab PO TIDAC #90 tabs 08/02/24 carvedilol 3.125 mg tablet (Coreg) 3.125 mg PO BID blood pressure #60 tabs 08/02/24 empagliflozin 25 mg tablet (Jardiance) 25 mg PO DAILY #30 tabs 08/02/24 gabapentin 100 mg capsule 100 mg PO BID nerve pain #60 caps 08/02/24 insulin glargine-yfgn 100 unit/mL (3 mL) subcutaneous pen 16 unit (0.16 mL) subcut QHS #0 mL 08/02/24 mirtazapine 15 mg tablet 22.5 mg (1.5 x 15 mg) PO QHS #45 tabs 08/02/24 tramadol 50 mg tablet 25 mg (1/2 x 50 mg) PO Q6H PRN PRN PAIN 5-10 1 week #14 tabs 08/02/24 insulin aspart U-100 100 unit/mL (3 mL) subcutaneous pen See Rx Instructions .Route .COMPLEX #15 mL 08/03/24 Hospital Course Operations None Procedures Modified Barium Swallow (Diagnosis: MODERATE OROPHARYNGEAL DYSPHAGIA R13.12 Impression: The study began with trials of thin liquids administered via teaspoon. No penetration or aspiration was observed on the first two trials. Thin liquids were then trialed via cup with [employer] cueing the patient to take small sips. Penetration) Summary of Care Provided Minutes Spent on Discharge: 45 Hospital Course: KARINA FALL, is a 78 YO M with a PMH of coronary artery disease (history of CABG in 1998), hypothyroidism, right carotid stenosis (a history of right carotid endarterectomy), CVA (2018), GERD, diabetes mellitus type 2, hyperlipidemia, BPH, tobacco dependence in remission and depression/PTSD who fell down 4 steps onto concrete outside his home on 07/10/2024. He could not tell the ED doc whether he missed a step or had syncope. He presented to the emergency department at [facility] and a laceration to the back of his head was noted. He complained of left shoulder pain and rib pain. He had a similar fall 1 week prior to the most recent event when he became lightheaded and fell. Was unknown whether or not he experienced loss of consciousness. CT of the brain showed a questionable trace extra-axial hemorrhage in the right frontal lobe. There was a left parietal occipital scalp contusion and laceration. CT of the cervical spine showed degenerative disc disease at C5-6 with no fractures or dislocations. There was a 0.6 cm solid pulmonary nodule in the left lung apex with multiple smaller nodules noted. Chest CT demonstrated a comminuted mildly displaced fracture of the left scapula with rib fractures of ribs 3 through 8 on the left. He had 3 sutures placed in the L side head laceration and was transferred to [facility] to the trauma service. At presentation to [facility] The hemoglobin was low at 12.9 with a normal MCV. Platelet count was mildly decreased at 151,000. Creatinine was elevated at 1.33. Repeat CT scan done at [facility] Demonstrated stable mild acute subdural bleeds without significant mass affect and right-sided cerebral encephalomalacia, more likely than not secondary to history of prior stroke. CT chest showed a minimally displaced acute fracture of the left scapula, incomplete/nondisplaced fractures of the anterior left 4th through 6th ribs and incomplete or nondisplaced fractures of the posterior lateral left 6th through 10th ribs. There were calcified granulomas and mediastinal lymph nodes suggesting prior granulomatous disease. He was seen by orthopedics and made nonweightbearing on the left upper extremity but no surgical intervention was done. He was seen by neurosurgery and no surgical intervention was recommended. He was transferred to the surgical intensive care unit on 08-06 for acute hypoxic respiratory failure. CT chest was negative for PE but did show left main bronchus mucous plugging. He was started on Mucomyst and Mucinex. Seen by ST at [facility] and noted to have dysphagia and cognitive dysfunction. Also seen by PT/OT and acute inpt rehab was recommended at [place] from [facility]. He was transferred to the acute inpt rehab unit at [facility] on 07/19/24 for 3 hours of therapy to restore function/independence at or near his level prior to the fall. At the time of the initial PT eval he was noted to have a festinating/shuffling gait. He also was noted to have resting tremors, bradykinesia, dysphagia, cognitive dysfunction, masked facies and decreased blink. He had urine retention and a Kaplan was inserted. He had been taking doxazosin at at bedtime, I presume for BPH. This was discontinued due to orthostatic hypotension. He was placed on Flomax and after 6 doses had a voiding trial which he failed miserably. He had no urge to urinate and was retaining large amounts of urine. Orthostatic hypotension was greatly exacerbated by Flomax and he became symptomatic. Flomax was discontinued and the Kaplan was reinserted. I suspect the urine retention is multifactorial......due to BPH and autonomic neuropathy due to Parkinson's disease. Karina and his were both instructed on how to care for the Kaplan and [facility] will provide a SN to monitor the Kaplan. 1 day prior to DC the urine in the bag and tubing was clear. A UA showed no bacteria, 0-5 RBC's and 0-5 WBC's. It was nitrite negative. Karina had PT/OT on rehab but, he also was seen by ST for both swallowing and cognitive difficulties. He had been choking on food for at least a year. He was diagnosed with PNA at [facility] and I suspect it was likely due to aspiration. A MBS showed moderate oropharyngeal dysphagia with silent aspiration. Prior to discharge he has no cough and his lungs are clear to auscultation. The modified barium swallow was repeated and he continues to have moderate oropharyngeal dysphagia with silent aspiration. He has swallowing exercises he is to do at home and will limit fluids to 5 cc at a time. Diet is regular textures and thin liquids at discharge. He will follow-up with speech therapy/home health care postdischarge. He had a BCAT (brief cognitive assessment tool) at admission to rehab and scored 30 out of a possible 50 points consistent significant cognitive impairment or dementia. ST worked with him on memory strategies and swallowing. The BCAT was repeated prior to DC and he scored 34/50. He has chronic cognitive impairment which may be related to PD. Both Remeron and Paxil can cause Parkinsonism. Paxil was discontinued. He was more alert during the day but, tremors, bradykinesia and masked facies persisted. He was started on Sinemet 100/10 mg TID and he made significant improvement in mobility. Tremors are almost completely gone and he has better facial expression. He is ambulating with a quad cane with a better pace and reciprocal gait. He is ambulated up to 330 feet with a quad cane at contact-guard assist on various uneven surfaces. He is contact-guard assist for safety and occasional instability. He is able to go from sitting to standing at standby assist and can do a stand pivot with a quad cane at light contact-guard assist from various surfaces. He is able to do 9 sit to stands in 30 seconds at standby assist using his right upper extremity to rise. He can ascend/descend 8 steps with 1 handrail at contact-guard assist. He is supervision/set up for eating and upper body dressing. He requires minimal assistance with grooming, bathing and tub/shower transfer. He is still total assist for lower body dressing. He is supervision for toilet transfer and he is independent for toilet hygiene. Prior to DC Karina's , Janessa, came in for family training/shared care to learn how to best assist Karina. He was discharged home on 08/03/24 and will have [facility] for PT/OT/ST/SN. He needed no DME. He has an appt to have a CT brain on 08/04/24 and has follow up scheduled with Dr. Marcus (PCP) and with neurology and urology at the [place]. He was discharged with a Kaplan catheter. Karina and Janessa were both instructed by nursing in how to care for the Kaplan catheter. They were both told catheters can lead to infection and they were given a list of things to look for that would indicate he may have a UTI. They also understand that untreated urine retention can cause infection and kidney failure. ST tried him on thickened liquids but, he would not eat and did not like the thickened liquids. He has not been coughing and he has clear lungs every time the nurses and I have listened to him. Will DC on thin liquids and he knows to take small, 5 cc, sips of fluids. Weight has decreased on rehab despite discontinuing Ozempic and good appetite and intake. May need to have W/U for occult malignancy. Physical Exam Const alert, oriented x3 and no apparent distress Constitutional Narrative: Pleasant. Sitting in the recliner at the bedside. Calm. Not wearing the sling unless he is up and he can apply the sling without assistance. General Appearance: cooperative and well kempt HEENT HEENT Narrative: L side scalp lac is healed and has no erythema or pain with palpation around where the lac was. Tongue protrudes on the midline. No thrush. No facial asymmetry. Better facial expression than at admission......since he was started on sinemet. MM are a little dry today. Eyes PERRL, EOMs intact bilaterally, conjunctivae normal and no scleral icterus Eyes Narrative: No DC from the eyes. No visual field cuts. General Eye: normal appearance of both eyes Neck supple, No nodes and no carotid bruits Neck Narrative: Better able to hold his head up than at admission to rehab when it was flexed forward. General: trachea midline Chest Chest Narrative: No crepitus Chest: symmetrical chest wall rise Resp Resp Narrative: CTA anterior and lateral. Not coughing. No conversational dyspnea. Effort and Inspection: able to speak in complete sentences Cardio regular rate, regular rhythm and no rub Cardio Narrative: Occasional ectopic. He has a 1-2/6 JOSE at the second [facility]. GI normal to inspection, nondistended, normoactive bowel sounds, soft to palpation and non-tender GI Narrative: mild tympany in the lower abd no CVA tenderness Narrative: No suprapubic tenderness Bladder / Kidney Exam: catheter in place urethral (urine is clear with no hematuria) Extremity no calf tenderness and no pedal edema Extremity Narrative: Onychomycosis of fingernails. No clubbing Skin no wounds and no jaundice General Skin Exam: no breakdown Rashes: no rashes Wound Narrative: Has a few small decubitus ulcers ( stage 1and 2) on his buttocks. Neuro CN's II-XII intact bilaterally and moves all extremities Neuro Narrative: no tremors today. Better facial expression. Blinking more than at admission. Ambulating with a quad cane with reciprocal stepping and at a good pace....no longer shuffling. Psych cooperative, affect normal, speech normal, denies hallucinations and denies suicidal ideation Appearance: grossly normal, appropriate and well kempt Attitude: calm and engaged Activity / Motor Behavior: appropriate eye contact Weight / BMI Weight Weight: 140 lb Body Mass Index (BMI) 20.7 ABG / Lab / Microbiology Data 08/01/24 13:46 08/01/24 13:46 Laboratory: Laboratory Results - last 24 hr 08/02/24 11:51: POC Glucose 149 H 08/02/24 14:15: Urine Color Yellow, Urine Clarity Sl. Cloudy, Urine pH 5.0, Ur Specific [place] 1.015, Urine Protein 30 H, Urine Glucose (UA) 1000 H, Urine Ketones Negative, Urine Occult Blood Negative, Urine Nitrite Negative, Urine Bilirubin Negative, Urine Urobilinogen Normal, Ur Leukocyte Esterase Negative, Urine RBC 0-5 SEEN, Urine WBC 0-5 SEEN, Ur Squamous Epith Cells 0 SEEN, Urine Bacteria 0 SEEN, Urine Mucus 0 SEEN 08/02/24 16:40: POC Glucose 89 08/02/24 21:35: POC Glucose 235 H 08/03/24 05:49: POC Glucose 123 H 08/03/24 11:23: POC Glucose 74 Microbiology: Microbiology 07/25/24 12:30 Stool Stool Occult Blood (LEXI) - Final 07/19/24 18:10 Urine Catheter - Catheter Urine Culture - Final Enterococcus faecalis D/C Instructions Weight Bearing Status: Full weight bearing Call your doctor if you observe: Fever of 101 or Higher, Shortness of breath, Dizziness, Fainting spells, Swelling in the ankles, Chest pain, Increased palpitations (irregular heartbeat), Calf discomfort, Uncontrolled pain and - (night sweats, shaking chills, change in the urine such as cloudy urine or bloody urine, nausea or vomiting. ) Catheter: Kaplan to large bag (can also use the leg bag) DC O2, CPAP, BIPAP Needs Home O2 Discharge instructions: No Pending Tests Upon Discharge: none Please Follow Up With: Jose Manuel Marcus MD When: The office will call you to schedule an appt. You will also need to follow up with the [place] for neurology and urology. Meaningful Use Info Meaningful Use Meaningful Use Diagnoses (Choose all that apply): None applicable Ischemic Stroke Statin Dosing Therapy Reference: STATIN DOSE THERAPY REFERENCE: * Patients > 75 years receive moderate or high dose statin therapy. * Patients 75 years or YOUNGER should receive HIGH intensity statin dose unless contraindicated. You will be required to document reason for non-treatment if statin daily dose does not meet guidelines. HIGH DOSE STATIN THERAPY DAILY Atorvastatin > than or = to 40 mg Rosuvastatin > than or = to 20 mg Amlodipine + Atorvastatin > than or = to 2.5/40 mg Ezetimibe + Simvastatin 10/80 mg Simvastatin 80mg Discharge Plan Admission Admit Date/Time: 07/19/24 16:42 Primary Reason for Your Visit: Debility due to traumatic fractures of ribs and L scapula. Attending Provider: Emily Hawkins Primary Care Provider: [place] Instructions Patient Instructions: Urinary Tract Infections in Men, Parkinson Common Symptoms, Parkinson Disease Mobility Tips Additional Instructions / Restrictions: 1. We have diagnosed you with Parkinson's disease and you have been started on a Medication called Sinemet. Since you have been taking this medication you are walking much better and not losing your balance. You have more facial expression and the tremors in your hands are much better. I am going to keep you on this medication at discharge from rehab. You will be following up at the [place] with neurology to manage the Parkinson's. Parkinson's disease can also cause urine retention, cognitive dysfunction and something we call orthostatic hypotension.......this means your BP drops significantly when you stand and can cause you to fall or pass out. You have been retaining urine. Sometimes in men your age this is due to prostate enlargement. We started you on a drug called Flomax which is used to treat prostate problems. This did not help the urine retention AND nitrating acid mixer to big decreases in the BP with standing and lightheadedness. You do not tolerate these drugs. I think the most likely reason for the urine retention is Parkinson's and not prostate problems. You are going home with a catheter to drain your bladder. Urine retention if untreated can lead to infections and kidney failure. That is why you need the catheter. You are going to see a urologist at the [place] to discuss what, if anything, can be done to get the catheter out. Catheters can lead to urinary tract infections called cystitis. I have given you a hand out that talks about the symptoms of urinary tract infection (UTI). 2. Parkinson's disease is treatable and the neurologist will adjust medications as needed. I think you have probably had Parkinson's disease for at least the last year. 3. I suspect the problems you have been having swallowing are also due to Parkinson's disease. 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 This means that when you swallow some of the food/liquid gets into the trachea/lungs. This can cause pneumonia. The symptoms of pneumonia are cough, fever, shortness of breath, sometimes chest pain, wheezing, chills. If you have any of these symptoms you should call your doctor OR go to the ER. You will continue to get speech therapy to help with swallowing after discharge. Please continue to follow the instructions for swallowing that the speech therapist gave you for drinking fluids after you get home. 4. We have taken you off some of the medications you were taking. You were taking 2 antidepressants, mirtazapine (also called Remeron) and Paxil (also called paroxetine). You are not depressed and are doing well. Instead of taking mirtazapine 30 mg at bedtime you are now taking 22.5 mg at bedtime and you are sleeping well. Your mood is good and your appetite is also good. The mirtazapine dose may be able to be weaned further. You can discuss this with Dr. Marcus. Your diabetes is well controlled. I do not think you need to be on Ozempic (also called semaglutide). This medication can lead to weight loss and you do not have any weight to lose. You are currently taking glargine at bedtime, lispro insulin with meals and the Jardiance (also called empagliflozin) 25 mg daily. You have had no blood sugars that are too low. We are continuing this regimen at [place]. 5. If you or Janessa have any questions after you get home please do not hesitate to call me. I am giving you a copy of your discharge summary........please take this to your appts at the [place]. OFFICE: [phone] CELL: [phone] NURSES ST[facility] ON REHAB: [phone] Discharge Orders/Prescriptions Prescriptions: New acetaminophen 500 mg Tablet 1,000 mg PO Q8 Qty: 90 0RF carbidopa-levodopa 10-100 mg Tablet 1 tab PO TIDAC Qty: 90 0RF Jardiance 25 mg Tablet 25 mg PO DAILY Qty: 30 0RF mirtazapine 15 mg Tablet 22.5 mg PO QHS Qty: 45 0RF Rx Instructions: take 1 and 1/2 tabs daily at bedtime insulin glargine-yfgn 100 unit/mL (3 mL) Insulin Pen 16 unit subcut QHS Qty: 0 0RF tramadol 50 mg Tablet 25 mg PO Q6H PRN PRN (Reason: PAIN 5-10) 7 Days Qty: 14 0RF insulin aspart U-100 100 unit/mL (3 mL) insulin pen See Rx Instructions .ROUTE .COMPLEX Qty: 15 0RF Rx Instructions: 14 units with breakfast, 16 units with lunch and supper. Continued atorvastatin 80 mg Tablet 80 mg PO QHS amlodipine 5 mg tablet 5 mg PO DAILY levothyroxine [Euthyrox] 75 mcg tablet 75 mcg PO DAILY ezetimibe [Zetia] 10 mg tablet 10 mg PO DAILY carvedilol [Coreg] 3.125 mg tablet 3.125 mg PO BID Qty: 60 0RF Rx Instructions: must administer with a meal/food. This is a new dose for you. gabapentin 100 mg capsule 100 mg PO BID Qty: 60 0RF calcium gluconate 60 mg calcium (650 mg) tablet 30 mg PO DAILY Discontinued insulin glargine [Lantus U-100 Insulin] 100 UNIT/ML solution 25 unit subcut QHS insulin aspart U-100 [Novolog FlexPen U-100 Insulin] 100 UNITS/ML insulin pen 14 units subcut TIDCM levetiracetam 500 mg Tablet 500 mg PO BID semaglutide 1 mg/dose (2 mg/1.5 mL) Pen Injector 1.5 mg SUBCUT FR acetaminophen 500 mg tablet 1,000 mg PO Q6H acetylcysteine 200 mg/mL (20 %) solution 1 ml inhalation Q6H ipratropium-albuterol 0.5 mg-3 mg(2.5 mg base)/3 mL solution for nebulization 3 ml inhalation Q6H guaifenesin 600 mg tablet extended release 12hr 600 mg PO BID PRN (Reason: cough) Jardiance 10 mg tablet 10 mg PO DAILY niacin 500 mg tablet 500 mg PO BID ropinirole 0.25 mg tablet 0.25 mg PO QHS doxazosin 2 mg tablet 2 mg PO DAILY mirtazapine 30 mg tablet 30 mg PO QHS Referrals / Follow Up: Dr Toure [Other] - 08/24/24 10:30 am () Venessa Lama [Other] - 08/17/24 1:[address] [facility] [Other] - 08/04/24 11:40 am Jose Manuel Marcus MD [Med Staff - [employer]] - (faxed over med list and face sheet. office to call with appt date) Disposition Disposition (needs filled in before D/C Order can be placed): Home Health Service Charges/Coding Visit Charges Inpatient E&M: 15089 Disch Hosp >30min
[2024-08-03 11:43] LABS: Bedside Glucose 74 mg/dL (74-106)
[2024-08-03] MEDS: Insulin Lispro 100 UNIT/ML INSULN.PEN 8 UNIT SC (11:46)
== END 2024-08-03 14:30 | disposition home health service (06) | DRG 561 ==
PROVIDERS: Admitting Provider Internal Medicine; Referring Provider Internal Medicine; Visit Provider Internal Medicine
DX: S22.42XD Multiple fractures of ribs, left side, subsequent encounter for fracture with routine healing (principal); L89.302 Pressure ulcer of unspecified buttock, stage 2; D71 Functional disorders of polymorphonuclear neutrophils; G90.9 Disorder of the autonomic nervous system, unspecified; R13.12 Dysphagia, oropharyngeal phase; G20.A1 Parkinson's disease without dyskinesia, without mention of fluctuations; N18.31 Chronic kidney disease, stage 3a; E11.22 Type 2 diabetes mellitus with diabetic chronic kidney disease; I12.9 Hypertensive chronic kidney disease with stage 1 through stage 4 chronic kidney disease, or unspecified chronic kidney disease; D64.9 Anemia, unspecified; K80.20 Calculus of gallbladder without cholecystitis without obstruction; I25.10 Atherosclerotic heart disease of native coronary artery without angina pectoris; K21.9 Gastro-esophageal reflux disease without esophagitis; Z79.4 Long term (current) use of insulin; E78.5 Hyperlipidemia, unspecified; I95.1 Orthostatic hypotension; W10.9XXD Fall (on) (from) unspecified stairs and steps, subsequent encounter; S06.5XAD Traumatic subdural hemorrhage with loss of consciousness status unknown, subsequent encounter; S01.01XD Laceration without foreign body of scalp, subsequent encounter; S42.102D Fracture of unspecified part of scapula, left shoulder, subsequent encounter for fracture with routine healing; R33.8 Other retention of urine; Z79.84 Long term (current) use of oral hypoglycemic drugs; Z87.891 Personal history of nicotine dependence; Z79.899 Other long term (current) drug therapy; N40.1 Benign prostatic hyperplasia with lower urinary tract symptoms; Z79.890 Hormone replacement therapy
CPT/HCPCS: 36415; 74018; 74230; 80048; 80053; 81001; 82274; 82728; 82962; 83036; 83540; 83550; 83735; 84100; 84439; 84443; 85014; 85018; 85025; 87077; 87086; 87088; 87186; 92507; 92523; 92526; 92610; 92611; 94640; 94668; 94762; 97110; 97112; 97116; 97129; 97130; 97162; 97166; 97530; 97535; 97802

== ENCOUNTER 2024-08-10 20:05 | Emergency (ER) | payer OTHER, SELFPAY ==
[2024-08-10 20:06] VITALS: PULSE 77; RESP 16; TEMP 36.3; O2SAT 99
[2024-08-10 20:09] VITALS: BMI 21.9
--- NOTE | 2024-08-10 20:49 | CT_ITS ---
PROCEDURE: ABDOMEN/PELVIS W IV CONT ONLY 08/10/2024 REASON FOR EXAM: CONSTIPATION TECHNIQUE: Abdomen and pelvis CT with intravenous contrast. Coronal and Sagittal reconstruction series were provided. No contrast amount listed. One or more dose reduction techniques were used (e.g., Automated exposure control, adjustment of the mA and/or kV according to patient size, use of iterative reconstruction technique. RADIATION DOSE SUMMARY: CTDlvol: 13.30+ 10.08 mGy DLP: 560.60 mGycm COMPARISON: None. FINDINGS: Lung bases: Left lower lobe subpleural 3.6 cm mass with internal calcifications. Liver: Normal size. No mass. Gallbladder: Single small gallstone. No surrounding inflammatory changes. Spleen: Normal size. Pancreas: Normal size without evidence of mass surrounding inflammation or ductal dilation. Adrenals: Normal. Kidneys: Mild bilateral cortical atrophy. No hydronephrosis. Bladder: Concentric urinary bladder wall thickening. Kaplan catheter present. Reproductive Organs: Unremarkable. Bowel: Dense rectal stool measuring 6.9 cm in diameter. Dense colonic stool. Normal caliber colon and small bowel. Lymph nodes: No suspicious lymph node enlargement. Vasculature: Moderate atherosclerosis. Normal caliber aorta. Peritoneum / Retroperitoneum: Unremarkable. Bones: Small fat containing left inguinal hernia. Small fat containing umbilical hernia. CT/Abdomen/Pelvis W IV Cont ONLY IMPRESSION: Concentric urinary bladder wall thickening with an indwelling Kaplan catheter. Correlate with urinalysis to exclude cystitis. Dense rectal stool. Consider impaction. Dense colonic stool suspicious for constipation. Small fat containing left inguinal and umbilical hernias. Cholelithiasis. Left lower lobe subpleural 3.6 cm mass with internal calcifications. Reading Location: [id number]
[2024-08-10] MEDS: 0.9% Normal Saline (1000mL) 1,000 ML 999 ML IV (20:57)
[2024-08-10 21:06] LABS: Mucous, Urine 0 SEEN /hpf (<or=2+); Squamous Epithelial Cells - UA 0 SEEN /hpf (0-5)
[2024-08-10 21:07] LABS: Color, Urine Yellow (Yellow); Glucose, Dipstick 1000 mg/dl (Normal); Ketone-Dipstick 5 mg/dl (Negative); Leukocyte Esterase-Dipstick 100 /ul (Negative); Nitrite-Dipstick Negative (Negative); Occult Blood-Urine 250 /ul (Negative); Protein-Dipstick 100 mg/dl (Negative); Urine Bilirubin Dipstick Negative (Negative); Urine Clarity Cloudy (Clear); Urine Urobilinogen Normal (Normal)
[2024-08-10 21:11] LABS: Absolute Lymphocyte Count 1.33 X10^3/uL (0.83-4.51); Absolute Neutrophil Count 7.7 X10^3/uL (2.0-7.7); Basophil# 0.04 X10^3/uL; Basophil% 0.4 % (0-1); Eosinophil# 0.24 X10^3/uL; Eosinophils% 2.3 % (0-5); Hematocrit 34.6 % (40-54); Hemoglobin 11.4 g/dL (13.0-16.5); Lymphocyte # 1.33 X10^3/ul (0.83-4.51); Lymphocyte % 12.9 % (19-41); Mean Corp Hgb Conc 32.9 g/dL (32-36); Mean Corpuscular Hgb 32.4 pg (27.0-32.0); Mean Corpuscular Volume 98.3 fL (80-94); Mean Platelet Vol. 9.8 fl (6.2-12.0); Monocyte# 1.01 X10^3/uL; Monocyte% 9.8 % (0-10); NRBC Flagged by Analyzer 0 % (0-5); Neutrophil # 7.66 X10^3/uL (2.7-7.7); Neutrophil % 74.3 % (47-70); Platelet Count 163 K/mm3 (150-450); RBC Distribution Width SD 49.5 fl (35.1-43.9); Red Blood Count 3.52 M/mm3 (4.6-6.2); White Blood Count 10.3 K/mm3 (4.4-11.0)
[2024-08-10 21:13] LABS: Red Blood Cells-Urine > 100 SEEN /hpf (0-5); White Blood Cells 5-10 SEEN /hpf (0-5)
[2024-08-10 21:14] LABS: Bacteria 1+ /hpf (None Seen)
[2024-08-10 21:42] LABS: ALB/GLOB Ratio 1.3 RATIO (0.9-2.4); AST(SGOT) 35 U/L (<=37); Alanine Aminotransfer ALT/SGPT 28 U/L (<=46); Albumin, Serum 3.8 g/dL (3.4-4.8); Alkaline Phosphatase 192 U/L (40-129); Anion Gap 15 (5-15); BUN 23 mg/dL (4-19); BUN/Creat Ratio 13.8 RATIO (10-20); Calcium,Total 9.1 mg/dL (7.6-11.0); Carbon Dioxide 21.3 mmol/L (21.0-32.0); Chloride 104 mmol/L (98-108); Creatinine, Serum 1.63 mg/dL (0.70-1.20); EST Glomerular Filtration Rate 43 (>60); Estimated Creatinine Clearance 35.97 ml/min (50-250); Globulin 2.9 g/dL (2.2-4.2); Glucose 179 mg/dL (70-99); Lipase 37 U/L (13-75); Potassium 4.3 mmol/L (3.3-5.1); Protein, Total 6.7 g/dL (5.9-8.4); Sodium Level 140 mmol/L (133-145); Total Bilirubin 0.47 mg/dL (0.00-1.30)
[2024-08-10 22:05] VITALS: BP 134/55; PULSE 80; RESP 18; O2SAT 98
--- NOTE | 2024-08-10 22:09 | EX.ED.DYSGE1 ---
HPI History of Present Illness Chief Complaint: Constipation Narrative Narrative: Patient is a 78-year-old male past medical history of depression, hypothyroidism, CVA, type 2 diabetes, BPH who presented to the emergency department chief complaint of constipation. Patient states that he has not had a bowel movement in 7 days. He states that about 7 days ago he got released from rehab and states since then he has not had a bowel movement he states that he tried [id number] stuff and has tried to eat things that normally make him have bowel movements without success. Significant other bedside states that they tried an enema at home and states that she believes he did not hold any of this and. Patient states he has been eating and drinking no vomiting. [facility] Medical History Autonomic neuropathy Normochromic normocytic anemia Hemorrhagic stroke (2015) Depression Granulomatous disease, chronic Cholelithiasis Stenosis of right carotid artery Atherosclerotic heart disease of [place] coronary artery without angina pectoris Hypothyroidism Stroke/cerebrovascular accident Acute metabolic encephalopathy due to hypoglycemia GERD (gastroesophageal reflux disease) Type 2 diabetes mellitus Benign prostate hyperplasia Home Medications ?Medication ?Instructions ?Recorded ?Last Taken ?Type atorvastatin 80 mg tablet 80 mg PO QHS cholesterol med 05/14/21 07/09/24 History calcium gluconate 60 mg calcium 30 mg PO DAILY supplement 07/10/24 07/19/24 History (650 mg) tablet amlodipine 5 mg tablet 5 mg PO DAILY blood pressure 07/19/24 07/19/24 History ezetimibe 10 mg tablet (Zetia) 10 mg PO DAILY cholesterol 07/19/24 Unknown History levothyroxine 75 mcg tablet 75 mcg PO DAILY thyroid 07/19/24 07/19/24 History (Euthyrox) acetaminophen 500 mg tablet 1,000 mg (2 x 500 mg) PO Q8 #90 08/02/24 Unknown Rx tabs carbidopa 10 mg-levodopa 100 mg 1 tab PO TIDAC #90 tabs 08/02/24 Unknown Rx tablet carvedilol 3.125 mg tablet (Coreg) 3.125 mg PO BID blood pressure #60 08/02/24 Unknown Rx tabs empagliflozin 25 mg tablet 25 mg PO DAILY #30 tabs 08/02/24 Unknown Rx (Jardiance) gabapentin 100 mg capsule 100 mg PO BID nerve pain #60 caps 08/02/24 07/19/24 Rx insulin glargine-yfgn 100 unit/mL 16 unit (0.16 mL) subcut QHS #0 mL 08/02/24 Unknown Rx (3 mL) subcutaneous pen mirtazapine 15 mg tablet 22.5 mg (1.5 x 15 mg) PO QHS #45 08/02/24 Unknown Rx tabs tramadol 50 mg tablet 25 mg (1/2 x 50 mg) PO Q6H PRN PRN 08/02/24 Unknown Rx PAIN 5-10 1 week #14 tabs insulin aspart U-100 100 unit/mL See Rx Instructions .Route 08/03/24 Unknown Rx (3 mL) subcutaneous pen .COMPLEX #15 mL cephalexin 500 mg capsule 500 mg PO BID 5 days #10 caps 08/10/24 Unknown Rx docusate sodium 100 mg capsule 100 mg PO BID #30 caps 08/10/24 Unknown Rx (Colace) Allergy/AdvReac Type Severity Reaction Status Date / Time No Known Allergies Allergy Verified 08/10/24 20:06 Family History Other Heart disease Surgical History Status post surgical removal of malignant neoplasm of skin History of right-sided carotid endarterectomy H/O coronary artery bypass surgery History of left heart catheterization (05/15/21) Social History household members: spouse number of children: 2 Smoking Status: Former smoker alcohol intake: never ROS ROS ED ROS Narrative Constitutional: Denies fevers, chills, headaches, lightness, dizziness Abdomen: Planes constipation as noted above denies abdominal pain nausea vomiting : States that his urine is very dark Neurological: Denies numbness, weakness, tingling Musculoskeletal: Denies back pain Skin: Denies rashes or lesions EXAM Physical Exam Narrative Exam Narrative: General: Patient lying in bed resting comfortably do not appear to be in acute distress Head: Atraumatic, normocephalic Eyes: PERRL bilaterally, EOMI bilateral, no conjunctival injection Neck: Soft, supple, trachea midline Cardiovascular: Regular in rhythm no murmurs gallops rubs noted Respiratory: Clear to auscultation bilaterally Abdomen: Soft, nondistended, no tenderness palpation Extremities: +5/5 strength in the bilateral upper and lower extremities Neurological: Patient follow commands knew that he was at [facility] years 2024 Skin: Warm, dry, intact no rashes or lesions noted Const Vital Signs: 08/10/24 20:06 08/10/24 22:05 Temperature 97.3 F L Temperature Source Temporal Pulse Rate 77 80 Respiratory Rate 16 18 Blood Pressure 134/55 H Blood Pressure Mean 81 Pulse Ox 99 98 Oxygen Delivery Method Room Air Room Air MDM MDM MDM Narrative Medical decision making narrative: Patient is a 78-year-old male who presents to the emerged part with a chief complaint of constipation. On the differential diagnose includes but not limited to constipation, bowel obstruction. Once workup is obtained reviewed he will be reevaluated. Patient be given IV fluids. Patient CBC reviewed showed no evidence leukocytosis white blood count normal 10.3, hemoglobin 11.4, plate count was 163. Patient sodium was 140, potassium normal 4.3, creatinine was 1.63. Patient's AST and ALT are normal at 35 and 28 respectively. Patient's lipase normal at 37, urinalysis reviewed and showed 100 leukocyte esterase 5-10 white cells with 1+ bacteria we will send this for culture. Patient's CT abdomen pelvis with IV contrast showed a concentric urinary bladder wall thickening with an indwelling Kaplan catheter correlate with urinalysis to exclude cystitis. Dense rectal stool consider impaction dense colonic stool suspicious for constipation small fat containing inguinal hernia on the left side and umbilical hernia noted. Cholelithiasis, left lower lobe subpleural 3.6 center mass with internal calcifications he was given a hard copy of this to follow-up on this incidental finding. Rectal exam was performed patient was disimpacted and soapsuds enema will be ordered. Given the patient's CT findings with his urinalysis we will treat him for urinary tract infection will be given first dose of Keflex here in the emergency department prescription was sent to the pharmacy as well as Colace. He was advised to use MiraLAX twice daily until having good bowel movements with the Colace and then reduce to once a day. He was encouraged return with worsening symptoms or concerns. He is advised to follow-up on urine culture with his doctor as well to ensure that he is on the right antibiotic versus if he needs to be on this antibiotic at all. He is agreeable this plan all question concerns answered at bedside. Once the patient is having good bowel movement here in the emergency department with the enema he will be discharged home. Lab Data Labs: Laboratory Results - last 24 hr 08/10/24 21:00 WBC 10.3 RBC 3.52 L Hgb 11.4 L Hct 34.6 L MCV 98.3 H MCH 32.4 H MCHC 32.9 RDW Std Deviation 49.5 H RDW Coeff of Cy 14.0 Plt Count 163 MPV 9.8 Immature Gran % (Auto) 0.300 Neut % (Auto) 74.3 H Lymph % (Auto) 12.9 L Pettis % (Auto) 9.8 Eos % (Auto) 2.3 Baso % (Auto) 0.4 Absolute Neuts (auto) 7.7 Absolute Lymphs (auto) 1.33 Nucleated RBC % 0 Sodium 140 Potassium 4.3 Chloride 104 Carbon Dioxide 21.3 Anion Gap 15 BUN 23 H Creatinine 1.63 H Estim Creat Clear Calc 35.97 L Est GFR (MDRD) Non-Af 43 L BUN/Creatinine Ratio 13.8 Glucose 179 H Calcium 9.1 Total Bilirubin 0.47 AST 35 ALT 28 Alkaline Phosphatase 192 H Total Protein 6.7 Albumin 3.8 Globulin 2.9 Albumin/Globulin Ratio 1.3 Lipase 37 Urine Color Yellow Urine Clarity Cloudy Urine pH 5.0 Ur Specific Lawler 1.020 Urine Protein 100 H Urine Glucose (UA) 1000 H Urine Ketones 5 H Urine Occult Blood 250 H Urine Nitrite Negative Urine Bilirubin Negative Urine Urobilinogen Normal Ur Leukocyte Esterase 100 H Urine RBC > 100 SEEN Urine WBC 5-10 SEEN Ur Squamous Epith Cells 0 SEEN Urine Bacteria 1+ Urine Mucus 0 SEEN Radiography Diagnostic Testing: Clinical Impression(s) from Imaging Studies Abdomen/Pelvis CT 08/10/24 20:49 IMPRESSION: Concentric urinary bladder wall thickening with an indwelling Kaplan catheter. Correlate with urinalysis to exclude cystitis. Dense rectal stool. Consider impaction. Dense colonic stool suspicious for constipation. Small fat containing left inguinal and umbilical hernias. Cholelithiasis. Left lower lobe subpleural 3.6 cm mass with internal calcifications. Reading Location: [place] [id number] Discharge Plan Triage Chief Complaint: Constipation ED Provider: Rasheed Moore Dx/Rx/DC Orders Clinical Impression: Constipation, Abnormal computed tomography of abdomen and pelvis, Urinary tract infection Prescriptions: New cephalexin 500 mg capsule 500 mg PO BID 5 Days Qty: 10 0RF docusate sodium [Colace] 100 mg capsule 100 mg PO BID Qty: 30 0RF No Action atorvastatin 80 mg Tablet 80 mg PO QHS amlodipine 5 mg tablet 5 mg PO DAILY levothyroxine [Euthyrox] 75 mcg tablet 75 mcg PO DAILY ezetimibe [Zetia] 10 mg tablet 10 mg PO DAILY acetaminophen 500 mg Tablet 1,000 mg PO Q8 Qty: 90 0RF carbidopa-levodopa 10-100 mg Tablet 1 tab PO TIDAC Qty: 90 0RF Jardiance 25 mg Tablet 25 mg PO DAILY Qty: 30 0RF mirtazapine 15 mg Tablet 22.5 mg PO QHS Qty: 45 0RF Rx Instructions: take 1 and 1/2 tabs daily at bedtime insulin glargine-yfgn 100 unit/mL (3 mL) Insulin Pen 16 unit subcut QHS Qty: 0 0RF tramadol 50 mg Tablet 25 mg PO Q6H PRN PRN (Reason: PAIN 5-10) 7 Days Qty: 14 0RF carvedilol [Coreg] 3.125 mg tablet 3.125 mg PO BID Qty: 60 0RF Rx Instructions: must administer with a meal/food. This is a new dose for you. gabapentin 100 mg capsule 100 mg PO BID Qty: 60 0RF insulin aspart U-100 100 unit/mL (3 mL) insulin pen See Rx Instructions .ROUTE .COMPLEX Qty: 15 0RF Rx Instructions: 14 units with breakfast, 16 units with lunch and supper. calcium gluconate 60 mg calcium (650 mg) tablet 30 mg PO DAILY [facility]errals: [facility] [Primary Care Provider] - Activity Restrictions/Additional Instructions: Use MiraLAX twice a day until you are having good bowel movements for a few days in a row then cut back to once a day. Use the Colace as prescribed as well. Use the antibiotic that was sent to your pharmacy as prescribed for urinary tract infection follow-up on culture results with your doctor as well to ensure that you are on the appropriate antibiotic. Return with worsening symptoms or concerns. Print Language: Telugu
[2024-08-11 00:22] VITALS: BP 157/72
[2024-08-11] MEDS: Cephalexin 250 MG Capsule 500 MG PO (00:36)
[2024-08-11 01:48] VITALS: BP 157/72; PULSE 68; RESP 17; TEMP 36.6; O2SAT 93
== END 2024-08-11 01:48 | disposition home or self-care (01) ==
PROVIDERS: Emergency Provider Emergency Medicine; Visit Provider Emergency Medicine
DX: K59.00 Constipation, unspecified (principal); E11.43 Type 2 diabetes mellitus with diabetic autonomic (poly)neuropathy; Z79.4 Long term (current) use of insulin; R93.5 Abnormal findings on diagnostic imaging of other abdominal regions, including retroperitoneum; N39.0 Urinary tract infection, site not specified; K42.9 Umbilical hernia without obstruction or gangrene; K40.90 Unilateral inguinal hernia, without obstruction or gangrene, not specified as recurrent; K80.20 Calculus of gallbladder without cholecystitis without obstruction; F32.A Depression, unspecified; E03.9 Hypothyroidism, unspecified; N40.0 Benign prostatic hyperplasia without lower urinary tract symptoms; I25.10 Atherosclerotic heart disease of native coronary artery without angina pectoris; K21.9 Gastro-esophageal reflux disease without esophagitis; Z96.0 Presence of urogenital implants; Z95.1 Presence of aortocoronary bypass graft; Z86.73 Personal history of transient ischemic attack (TIA), and cerebral infarction without residual deficits; Z79.84 Long term (current) use of oral hypoglycemic drugs; Z87.19 Personal history of other diseases of the digestive system; Z79.890 Hormone replacement therapy; Z79.899 Other long term (current) drug therapy; Z87.891 Personal history of nicotine dependence
CPT/HCPCS: 74177; 80053; 81001; 83690; 85025; 87077; 87086; 87088; 87186; 96360; 96361; 99284; Q9967; A4216